=== PATIENT | male | born 1945 | race Caucasian/White ===

== ENCOUNTER 2016-08-07 09:20 | Outpatient (CLI) | payer MEDICARE, OTHER ==
[~2016-08-07 09:20] MED LIST: ACET325T53 PO; ALLA266C2 TP; ALLO100T PO; ASPI-807 PO; ATEN25TA PO; CARI350T27 PO; ENOX40DI SQ; FENT1PAT2 TD; HYDR-3326 PO; HYDR-429 PO; Hydrochlorothiazide PO; INSU100C7 SQ; Insulin Glargine,Hum.rec.anlog SQ; LISI1TAB11 PO; LISI20TA61 PO; METF10002 PO; MULT1CAP34 PO; OXYC1TAB PO; PANT40TA2 PO; POTA99TA14 PO; SIMV20TA6 PO; Zolpidem Tartrate PO
== END 2016-08-07 23:59 | disposition home health service (06) ==
LOC: WOU 09:20
PROVIDERS: ATTEND Podiatrist Foot & Ankle Surgery
DX: E11.621 Type 2 diabetes mellitus with foot ulcer (principal); L97.523 Non-pressure chronic ulcer of other part of left foot with necrosis of muscle; E11.42 Type 2 diabetes mellitus with diabetic polyneuropathy; Z79.4 Long term (current) use of insulin; Z89.432 Acquired absence of left foot; Z89.431 Acquired absence of right foot; Z87.891 Personal history of nicotine dependence
CPT/HCPCS: 11043; 73630; A6253; A6402 ×2

== ENCOUNTER 2016-08-14 09:55 | Outpatient (CLI) | payer MEDICARE, OTHER ==
[~2016-08-14 09:55] MED LIST changes: -HYDR-429 PO; +HYDR-548 PO; +OXYC-128 PO; -OXYC1TAB PO
[2016-08-14] MEDS ORDERED: DILT240T12 PO (20:01)
[2016-08-14] MEDS ORDERED: FENO145T PO (20:01)
[2016-08-14] MEDS ORDERED: ASPI81TA2 PO (20:01)
[2016-08-14] MEDS ORDERED: ATOR10TA PO (20:01)
[2016-08-14] MEDS ORDERED: CARV25TA PO (20:01)
[2016-08-14] MEDS ORDERED: LISI20TA61 GT (20:01)
== END 2016-08-14 23:59 | disposition home health service (06) ==
LOC: WOU 09:55
PROVIDERS: ATTEND Podiatrist Foot & Ankle Surgery
DX: E11.621 Type 2 diabetes mellitus with foot ulcer (principal); L97.424 Non-pressure chronic ulcer of left heel and midfoot with necrosis of bone; L97.521 Non-pressure chronic ulcer of other part of left foot limited to breakdown of skin; L03.116 Cellulitis of left lower limb; E11.42 Type 2 diabetes mellitus with diabetic polyneuropathy; Z87.891 Personal history of nicotine dependence; Z89.432 Acquired absence of left foot; Z89.431 Acquired absence of right foot
CPT/HCPCS: 11044; 11047; A6402; J2704; J3490

== ENCOUNTER 2016-08-14 11:06 | Inpatient (IN) | payer MEDICARE, OTHER ==
[~2016-08-14] VITALS: Ht 193 cm; Wt 138.3 kg
[2016-08-14 12:00] VITALS: BP 115/71
[2016-08-14] MEDS ORDERED: BUPIVACAINE MPF 0.5% W/EPI INJ 30 ML VIAL ONE (13:22)
[2016-08-14 14:12] LABS: BASOPHILS # (AUTO) 0.1 /CMM (0.0-0.2); BASOPHILS % (AUTO) 0.5 % (0.0-2.0); DIFF TOTAL % 100 %; EOSINOPHILS # (AUTO) 0.5 /CMM (0.0-0.7); EOSINOPHILS % (AUTO) 4.6 % (0.0-6.0); HEMATOCRIT 37 % (39-51); HEMOGLOBIN 11.7 g/dL (13.5-17.5); LYMPHOCYTES % (AUTO) 18.6 % (20.0-44.0); MEAN CORPUSCULAR HEMOGLOBIN 25 PG (26.0-33.0); MEAN CORPUSCULAR HGB CONC 32 g/dl (31.0-36.0); MEAN CORPUSCULAR VOLUME 79 fL (80-96); MONOCYTES # (AUTO) 1.1 /CMM (0.1-1.30); MONOCYTES % (AUTO) 9.9 % (2.0-12.0); NEUTROPHILS # (AUTO) 7.3 /CMM (1.8-8.9); NEUTROPHILS % (AUTO) 66.4 % (43.0-81.0); PLATELET COUNT (AUTO) 367 /CMM (150-450); RED BLOOD CELL COUNT(AUTO) 4.68 MIL/uL (4.5-6.0); WHITE BLOOD COUNT (AUTO) 10.9 K/uL (4.3-11.0)
[2016-08-14 14:21] LABS: CALCIUM, SERUM 9.2 mg/dL (8.5-10.1); CREATININE 1.8 mg/dL (0.6-1.3)
[2016-08-14 14:29] LABS: INR 1.08 (0.87-1.13); PROTHROMBIN TIME 11.7 SECS (9.5-12.7)
[2016-08-14] MEDS ORDERED: ZOLPIDEM TARTRATE 5 MG TABLET PO PRN (14:30)
[2016-08-14] MEDS ORDERED: DEXTROSE 50%-WATER 50 ML DISP.SYRIN IV PRN (14:30)
[2016-08-14] MEDS ORDERED: FENTANYL TD PATCH (12 MCG/HR) 12 MCG/HR PATCH.TD72 TD SCH (14:30)
[2016-08-14] MEDS ORDERED: ONDANSETRON HCL/PF 4 MG/2 ML VIAL IVP PRN (14:30)
[2016-08-14] MEDS ORDERED: ACETAMINOPHEN 325 MG TABLET PO PRN (14:30)
[2016-08-14] MEDS ORDERED: MAGNESIUM HYDROXIDE 30 ML UDC PO PRN (14:30)
[2016-08-14] MEDS ORDERED: MAG HYDROX/AL HYDROX/SIMETH 30 ML UDC PO PRN (14:30)
[2016-08-14] MEDS ORDERED: Z GUARD REMEDY 2 OZ OINT TP PRN ×2 (14:30)
[2016-08-14] MEDS ORDERED: IV NS 0.9% 1,000 ML IV SCH (14:30)
[2016-08-14 14:34] LABS: POTASSIUM 6.2 mmol/L (3.5-5.1)
[2016-08-14] MEDS ORDERED: HYDROMORPHONE 1 MG/1 ML DISP.SYRIN IV PRN (15:00)
[2016-08-14] MEDS ORDERED: SODIUM POLYSTYRENE SULFONATE 15 G/60 ML BOTTLE PO ONE (15:00)
[2016-08-14] MEDS: ASPIRIN 81 MG TAB.CHEW PO SCH (15:13)
[2016-08-14] MEDS ORDERED: VANCOMYCIN 1 GM in IV D5W 250 ML IV SCH (15:30)
[2016-08-14] MEDS ORDERED: Calcium Gluconate 1GM/10ML 4.65 MEQ in IV D5W 50 ML IV ONE (15:30)
[2016-08-14] MEDS ORDERED: FEE PK DOSING 1 MIN EA MC ONE (16:13)
[2016-08-14] MEDS ORDERED: VANCOMYCIN 500 MG in IV D5W 100 ML IV SCH (17:00)
[2016-08-14] MEDS ORDERED: SECONDARY IV SET 1 EA INFUS.SET MC ONE (17:26)
[2016-08-14] MEDS ORDERED: IV SET PRIMARY PUMP SET 1 EA INFUS.SET MC ONE ×2 (17:26→18:36)
[2016-08-14] MEDS: CARISOPRODOL 350 MG TABLET PO SCH (17:57)
[2016-08-14] MEDS: *INSULIN REGULAR(HUMULIN R)HUM 100 UNIT/ML VIAL SQ PRN (17:57)
[2016-08-14] MEDS: IV NS 0.9% 1,000 ML IV PRN (17:57)
[2016-08-14] MEDS: BLOOD SUGAR DIAGNOSTIC 1 EACH STRIP VI SCH ×2 (17:58→21:28)
[2016-08-14 18:01] LABS: CALCIUM, SERUM 9.4 mg/dL (8.5-10.1); CREATININE 1.9 mg/dL (0.6-1.3)
[2016-08-14 18:31] LABS: POTASSIUM 6.2 mmol/L (3.5-5.1)
[2016-08-14] MEDS: CEFTRIAXONE 1 G in IV D5W 50 ML IV SCH (18:42)
[2016-08-14] MEDS ORDERED: ALBUTEROL FS 2.5 MG/0.5 ML VIAL.NEB NEB ONE (19:30)
[2016-08-14 20:00] VITALS: BP_SYST 118; BP_DIAS 54; BP_DIAS 57
[2016-08-14] MEDS ORDERED: ATOR10TA PO (20:01)
[2016-08-14] MEDS ORDERED: ASPI81TA2 PO (20:01)
[2016-08-14] MEDS ORDERED: DILT240T12 PO (20:01)
[2016-08-14] MEDS ORDERED: CARV25TA PO (20:01)
[2016-08-14] MEDS ORDERED: FENO145T PO (20:01)
[2016-08-14] MEDS ORDERED: LISI20TA61 GT (20:01)
[2016-08-14] MEDS: SIMVASTATIN 20 MG TABLET PO SCH (21:24)
[2016-08-14] MEDS: INSULIN DETEMIR 100 UNIT/ML CARTRIDGE SQ SCH (21:28)
[2016-08-15] MEDS ORDERED: SODIUM POLYSTYRENE SULFONATE 15 G/60 ML BOTTLE PO ONE (01:00)
[2016-08-15] MEDS: BLOOD SUGAR DIAGNOSTIC 1 EACH STRIP VI SCH ×4 (06:02→21:15)
[2016-08-15] MEDS: HYDROCODONE/APAP 5/325MG 1 EACH TABLET PO PRN ×2 (06:36→15:14)
[2016-08-15 07:21] LABS: ALBUMIN 2.6 g/dL (3.4-5.0); BILIRUBIN,DIRECT 0.1 mg/dL (0.0-0.2); BILIRUBIN,TOTAL 0.3 mg/dL (0.2-1.0); CALCIUM, SERUM 9.3 mg/dL (8.5-10.1); CREATININE 1.6 mg/dL (0.6-1.3); INDIRECT BILIRUBIN 0.2 mg/dL (0.0-1.1); PHOSPHORUS 3.2 mg/dL (2.5-4.9); TOTAL PROTEIN, SERUM 7.3 g/dL (6.4-8.2)
[2016-08-15] MEDS: PANTOPRAZOLE 40 MG TABLET.DR PO SCH (07:30)
[2016-08-15 07:40] LABS: BASOPHILS % (AUTO) 0.4 % (0.0-2.0); DIFF TOTAL % 100 %; EOSINOPHILS # (AUTO) 0.4 /CMM (0.0-0.7); EOSINOPHILS % (AUTO) 3.6 % (0.0-6.0); HEMATOCRIT 36 % (39-51); HEMOGLOBIN 11.9 g/dL (13.5-17.5); LYMPHOCYTES # (AUTO) 1.7 /CMM (0.8-4.8); LYMPHOCYTES % (AUTO) 16.2 % (20.0-44.0); MEAN CORPUSCULAR HEMOGLOBIN 26 PG (26.0-33.0); MEAN CORPUSCULAR HGB CONC 33 g/dl (31.0-36.0); MEAN CORPUSCULAR VOLUME 79 fL (80-96); MONOCYTES % (AUTO) 9.2 % (2.0-12.0); NEUTROPHILS # (AUTO) 7.5 /CMM (1.8-8.9); NEUTROPHILS % (AUTO) 70.6 % (43.0-81.0); PLATELET COUNT (AUTO) 349 /CMM (150-450); RED BLOOD CELL COUNT(AUTO) 4.57 MIL/uL (4.5-6.0); WHITE BLOOD COUNT (AUTO) 10.6 K/uL (4.3-11.0)
[2016-08-15 08:00] VITALS: BP 134/80
[2016-08-15] MEDS: ALLOPURINOL 100 MG TABLET PO SCH (09:00)
[2016-08-15] MEDS: ASPIRIN 81 MG TAB.CHEW PO SCH (09:00)
[2016-08-15] MEDS ORDERED: LISINOPRIL (20MG) 20 MG TABLET PO SCH (09:00)
[2016-08-15] MEDS: CARISOPRODOL 350 MG TABLET PO SCH ×3 (09:00→17:00)
[2016-08-15] MEDS: ATENOLOL 25 MG TABLET PO SCH (09:00)
[2016-08-15 10:00] VITALS: BP 134/80
[2016-08-15] MEDS ORDERED: BUPIVACAINE MPF 0.5% W/EPI INJ 30 ML VIAL ONE (10:31)
[2016-08-15] MEDS ORDERED: Magnesium 1GM/D5W 100ML PREMIX 100 ML IV SCH (10:51)
[2016-08-15] MEDS ORDERED: CELLULOSE,OXIDIZED 1 EACH EACH MC ONE (11:03)
[2016-08-15] MEDS ORDERED: SECONDARY IV SET 1 EA INFUS.SET MC ONE (12:21)
[2016-08-15] MEDS: INSULIN REGULAR, HUMAN 100 UNIT/ML 3 ML VIAL SQ PRN ×2 (12:21→18:29)
[2016-08-15] MEDS: IV NS 0.9% 1,000 ML IV PRN (12:31)
[2016-08-15] MEDS: CEFTRIAXONE 1 G in IV D5W 50 ML IV SCH (15:15)
[2016-08-15 16:00] VITALS: BP 142/75
[2016-08-15] MEDS ORDERED: VANCOMYCIN 1.5 GM in IV D5W 500 ML IV SCH (17:00)
[2016-08-15 19:37] VITALS: BP 144/66
[2016-08-15 19:44] VITALS: BP 144/66
[2016-08-15] MEDS: SIMVASTATIN 20 MG TABLET PO SCH (21:11)
[2016-08-15] MEDS: HYDROCODONE/APAP 10/325MG 1 EA TABLET PO PRN (21:11)
[2016-08-15] MEDS: *INSULIN REGULAR(HUMULIN R)HUM 100 UNIT/ML VIAL SQ PRN (21:19)
[2016-08-15] MEDS: INSULIN DETEMIR 100 UNIT/ML CARTRIDGE SQ SCH (21:19)
[2016-08-16] MEDS: IV NS 0.9% 1,000 ML IV PRN ×2 (05:06→22:16)
[2016-08-16] MEDS: HYDROCODONE/APAP 10/325MG 1 EA TABLET PO PRN ×3 (05:06→20:22)
[2016-08-16] MEDS: INSULIN REGULAR, HUMAN 100 UNIT/ML 3 ML VIAL SQ PRN ×3 (05:44→17:06)
[2016-08-16 07:04] LABS: CALCIUM, SERUM 9.4 mg/dL (8.5-10.1); CREATININE 1.4 mg/dL (0.6-1.3); POTASSIUM 5.3 mmol/L (3.5-5.1)
[2016-08-16 07:29] VITALS: BP 136/74
[2016-08-16] MEDS: BLOOD SUGAR DIAGNOSTIC 1 EACH STRIP VI SCH ×4 (07:30→22:06)
[2016-08-16 08:00] VITALS: BP 109/48
[2016-08-16] MEDS: ALLOPURINOL 100 MG TABLET PO SCH (08:33)
[2016-08-16] MEDS: ASPIRIN 81 MG TAB.CHEW PO SCH (08:33)
[2016-08-16] MEDS: PANTOPRAZOLE 40 MG TABLET.DR PO SCH (08:33)
[2016-08-16] MEDS: ATENOLOL 25 MG TABLET PO SCH (08:34)
[2016-08-16] MEDS ORDERED: SECONDARY IV SET 1 EA INFUS.SET MC ONE (12:44)
[2016-08-16] MEDS: Magnesium 1GM/D5W 100ML PREMIX 100 ML IV SCH ×2 (12:47→14:13)
[2016-08-16 16:00] VITALS: BP 132/69
[2016-08-16] MEDS: CEFTRIAXONE 1 G in IV D5W 50 ML IV SCH (16:54)
[2016-08-16] MEDS ORDERED: VANCOMYCIN 1 GM in IV D5W 250 ML IV SCH (17:00)
[2016-08-16 20:00] VITALS: BP 139/75
[2016-08-16] MEDS: SIMVASTATIN 20 MG TABLET PO SCH (22:06)
[2016-08-16] MEDS: *INSULIN REGULAR(HUMULIN R)HUM 100 UNIT/ML VIAL SQ PRN (22:09)
[2016-08-16] MEDS: INSULIN DETEMIR 100 UNIT/ML CARTRIDGE SQ SCH (22:11)
[2016-08-17] MEDS: PANTOPRAZOLE 40 MG TABLET.DR PO SCH (06:53)
[2016-08-17] MEDS: BLOOD SUGAR DIAGNOSTIC 1 EACH STRIP VI SCH ×4 (06:54→22:14)
[2016-08-17] MEDS: INSULIN REGULAR, HUMAN 100 UNIT/ML 3 ML VIAL SQ PRN ×3 (06:55→18:19)
[2016-08-17 07:04] LABS: BASOPHILS % (AUTO) 0.4 % (0.0-2.0); DIFF TOTAL % 100 %; EOSINOPHILS # (AUTO) 0.4 /CMM (0.0-0.7); EOSINOPHILS % (AUTO) 3.4 % (0.0-6.0); HEMATOCRIT 33 % (39-51); HEMOGLOBIN 10.5 g/dL (13.5-17.5); LYMPHOCYTES # (AUTO) 2.1 /CMM (0.8-4.8); LYMPHOCYTES % (AUTO) 17.9 % (20.0-44.0); MEAN CORPUSCULAR HEMOGLOBIN 25 PG (26.0-33.0); MEAN CORPUSCULAR HGB CONC 32 g/dl (31.0-36.0); MEAN CORPUSCULAR VOLUME 80 fL (80-96); MONOCYTES % (AUTO) 8.7 % (2.0-12.0); NEUTROPHILS % (AUTO) 69.6 % (43.0-81.0); PLATELET COUNT (AUTO) 379 /CMM (150-450); RED BLOOD CELL COUNT(AUTO) 4.16 MIL/uL (4.5-6.0); WHITE BLOOD COUNT (AUTO) 11.6 K/uL (4.3-11.0)
[2016-08-17 07:16] LABS: CALCIUM, SERUM 8.7 mg/dL (8.5-10.1); CREATININE 1.5 mg/dL (0.6-1.3); POTASSIUM 4.9 mmol/L (3.5-5.1)
[2016-08-17] MEDS ORDERED: LIDOCAINE HCL/PF 1% 30 ML SDV ONE (08:03)
[2016-08-17] MEDS: ASPIRIN 81 MG TAB.CHEW PO SCH (09:00)
[2016-08-17] MEDS: ATENOLOL 25 MG TABLET PO SCH (09:42)
[2016-08-17] MEDS: ALLOPURINOL 100 MG TABLET PO SCH (09:42)
[2016-08-17] MEDS: HYDROCODONE/APAP 10/325MG 1 EA TABLET PO PRN ×3 (09:45→22:27)
[2016-08-17] MEDS ORDERED: Magnesium 1GM/D5W 100ML PREMIX 100 ML IV SCH (12:00)
[2016-08-17] MEDS ORDERED: SECONDARY IV SET 1 EA INFUS.SET MC ONE (12:20)
[2016-08-17] MEDS: CEFTRIAXONE 1 G in IV D5W 50 ML IV SCH (15:20)
[2016-08-17 20:00] VITALS: BP 139/78
[2016-08-17] MEDS: SIMVASTATIN 20 MG TABLET PO SCH (22:14)
[2016-08-17] MEDS: *INSULIN REGULAR(HUMULIN R)HUM 100 UNIT/ML VIAL SQ PRN (22:17)
[2016-08-17] MEDS: INSULIN DETEMIR 100 UNIT/ML CARTRIDGE SQ SCH (22:17)
[2016-08-17] MEDS: IV NS 0.9% 1,000 ML IV PRN (22:39)
[2016-08-18 06:45] LABS: BASOPHILS # (AUTO) 0.1 /CMM (0.0-0.2); BASOPHILS % (AUTO) 0.6 % (0.0-2.0); DIFF TOTAL % 100 %; EOSINOPHILS # (AUTO) 0.5 /CMM (0.0-0.7); EOSINOPHILS % (AUTO) 4.6 % (0.0-6.0); HEMATOCRIT 31 % (39-51); HEMOGLOBIN 9.6 g/dL (13.5-17.5); LYMPHOCYTES % (AUTO) 20.2 % (20.0-44.0); MEAN CORPUSCULAR HEMOGLOBIN 25 PG (26.0-33.0); MEAN CORPUSCULAR HGB CONC 32 g/dl (31.0-36.0); MEAN CORPUSCULAR VOLUME 79 fL (80-96); MONOCYTES # (AUTO) 0.8 /CMM (0.1-1.30); MONOCYTES % (AUTO) 7.8 % (2.0-12.0); NEUTROPHILS # (AUTO) 6.7 /CMM (1.8-8.9); NEUTROPHILS % (AUTO) 66.8 % (43.0-81.0); PLATELET COUNT (AUTO) 330 /CMM (150-450); RED BLOOD CELL COUNT(AUTO) 3.87 MIL/uL (4.5-6.0)
[2016-08-18] MEDS: BLOOD SUGAR DIAGNOSTIC 1 EACH STRIP VI SCH ×4 (06:45→21:02)
[2016-08-18 07:09] LABS: CALCIUM, SERUM 8.7 mg/dL (8.5-10.1); CREATININE 1.3 mg/dL (0.6-1.3); POTASSIUM 4.8 mmol/L (3.5-5.1)
[2016-08-18] MEDS: INSULIN REGULAR, HUMAN 100 UNIT/ML 3 ML VIAL SQ PRN ×3 (07:17→16:53)
[2016-08-18 08:00] VITALS: BP 151/79
[2016-08-18] MEDS: PANTOPRAZOLE 40 MG TABLET.DR PO SCH (08:02)
[2016-08-18] MEDS: ASPIRIN 81 MG TAB.CHEW PO SCH (08:02)
[2016-08-18] MEDS: ATENOLOL 25 MG TABLET PO SCH (08:02)
[2016-08-18] MEDS: ACIDOPHILUS/BULGARICUS 1 EACH TAB.CHEW PO SCH ×3 (08:02→16:33)
[2016-08-18] MEDS: ALLOPURINOL 100 MG TABLET PO SCH (08:02)
[2016-08-18] MEDS: HYDROCODONE/APAP 10/325MG 1 EA TABLET PO PRN ×3 (08:10→20:10)
[2016-08-18 08:53] VITALS: BP 151/79
[2016-08-18] MEDS: Magnesium 1GM/D5W 100ML PREMIX 100 ML IV SCH ×2 (11:10→12:14)
[2016-08-18] MEDS: CEFTRIAXONE 1 G in IV D5W 50 ML IV SCH (15:13)
[2016-08-18 16:00] VITALS: BP 150/78
[2016-08-18 20:00] VITALS: BP 147/81
[2016-08-18] MEDS: IV NS 0.9% 1,000 ML IV PRN (21:00)
[2016-08-18] MEDS: *INSULIN REGULAR(HUMULIN R)HUM 100 UNIT/ML VIAL SQ PRN (21:04)
[2016-08-18] MEDS: INSULIN DETEMIR 100 UNIT/ML CARTRIDGE SQ SCH (21:05)
[2016-08-18] MEDS: SIMVASTATIN 20 MG TABLET PO SCH (21:07)
[2016-08-19] MEDS: HYDROCODONE/APAP 10/325MG 1 EA TABLET PO PRN ×4 (02:51→23:47)
[2016-08-19 06:26] LABS: BASOPHILS % (AUTO) 0.4 % (0.0-2.0); DIFF TOTAL % 100 %; EOSINOPHILS # (AUTO) 0.6 /CMM (0.0-0.7); EOSINOPHILS % (AUTO) 4.9 % (0.0-6.0); HEMATOCRIT 33 % (39-51); HEMOGLOBIN 10.2 g/dL (13.5-17.5); LYMPHOCYTES % (AUTO) 17.2 % (20.0-44.0); MEAN CORPUSCULAR HEMOGLOBIN 25 PG (26.0-33.0); MEAN CORPUSCULAR HGB CONC 31 g/dl (31.0-36.0); MEAN CORPUSCULAR VOLUME 79 fL (80-96); MONOCYTES # (AUTO) 0.6 /CMM (0.1-1.30); MONOCYTES % (AUTO) 4.7 % (2.0-12.0); NEUTROPHILS # (AUTO) 8.6 /CMM (1.8-8.9); NEUTROPHILS % (AUTO) 72.8 % (43.0-81.0); PLATELET COUNT (AUTO) 247 /CMM (150-450); RED BLOOD CELL COUNT(AUTO) 4.12 MIL/uL (4.5-6.0); WHITE BLOOD COUNT (AUTO) 11.8 K/uL (4.3-11.0)
[2016-08-19] MEDS: BLOOD SUGAR DIAGNOSTIC 1 EACH STRIP VI SCH ×4 (06:36→21:22)
[2016-08-19] MEDS: INSULIN REGULAR, HUMAN 100 UNIT/ML 3 ML VIAL SQ PRN ×2 (06:36→17:34)
[2016-08-19 08:00] VITALS: BP 161/96
[2016-08-19] MEDS: ACIDOPHILUS/BULGARICUS 1 EACH TAB.CHEW PO SCH ×3 (08:13→16:56)
[2016-08-19] MEDS: ALLOPURINOL 100 MG TABLET PO SCH (08:13)
[2016-08-19] MEDS: ASPIRIN 81 MG TAB.CHEW PO SCH (08:13)
[2016-08-19] MEDS: PANTOPRAZOLE 40 MG TABLET.DR PO SCH (08:13)
[2016-08-19] MEDS: ATENOLOL 25 MG TABLET PO SCH (08:14)
[2016-08-19 08:19] LABS: CALCIUM, SERUM 8.7 mg/dL (8.5-10.1); CREATININE 1.3 mg/dL (0.6-1.3); POTASSIUM 5.3 mmol/L (3.5-5.1)
[2016-08-19] MEDS ORDERED: SECONDARY IV SET 1 EA INFUS.SET MC ONE (11:03)
[2016-08-19] MEDS: IV NS 0.9% 1,000 ML IV PRN (11:09)
[2016-08-19] MEDS: Magnesium 1GM/D5W 100ML PREMIX 100 ML IV SCH ×2 (11:09→12:32)
[2016-08-19] MEDS: *INSULIN REGULAR(HUMULIN R)HUM 100 UNIT/ML VIAL SQ PRN ×2 (12:07→21:21)
[2016-08-19] MEDS: CEFTRIAXONE 1 G in IV D5W 50 ML IV SCH (14:58)
[2016-08-19 15:46] VITALS: BP 160/119
[2016-08-19 20:00] VITALS: BP 156/80
[2016-08-19] MEDS: SIMVASTATIN 20 MG TABLET PO SCH (21:20)
[2016-08-19] MEDS: INSULIN DETEMIR 100 UNIT/ML CARTRIDGE SQ SCH (21:21)
[2016-08-20] MEDS: BLOOD SUGAR DIAGNOSTIC 1 EACH STRIP VI SCH ×4 (06:44→21:26)
[2016-08-20] MEDS: INSULIN REGULAR, HUMAN 100 UNIT/ML 3 ML VIAL SQ PRN ×3 (06:48→17:53)
[2016-08-20] MEDS: PANTOPRAZOLE 40 MG TABLET.DR PO SCH (06:49)
[2016-08-20 07:02] LABS: BASOPHILS % (AUTO) 0.5 % (0.0-2.0); DIFF TOTAL % 100 %; EOSINOPHILS # (AUTO) 0.4 /CMM (0.0-0.7); EOSINOPHILS % (AUTO) 4.8 % (0.0-6.0); HEMATOCRIT 32 % (39-51); LYMPHOCYTES # (AUTO) 2.1 /CMM (0.8-4.8); LYMPHOCYTES % (AUTO) 22.1 % (20.0-44.0); MEAN CORPUSCULAR HEMOGLOBIN 25 PG (26.0-33.0); MEAN CORPUSCULAR HGB CONC 31 g/dl (31.0-36.0); MEAN CORPUSCULAR VOLUME 79 fL (80-96); MONOCYTES # (AUTO) 0.7 /CMM (0.1-1.30); MONOCYTES % (AUTO) 7.6 % (2.0-12.0); NEUTROPHILS # (AUTO) 6.1 /CMM (1.8-8.9); PLATELET COUNT (AUTO) 378 /CMM (150-450); WHITE BLOOD COUNT (AUTO) 9.3 K/uL (4.3-11.0)
[2016-08-20 07:30] LABS: CALCIUM, SERUM 8.6 mg/dL (8.5-10.1); CREATININE 1.2 mg/dL (0.6-1.3); POTASSIUM 5.1 mmol/L (3.5-5.1)
[2016-08-20 08:00] VITALS: BP 148/78
[2016-08-20] MEDS: ACIDOPHILUS/BULGARICUS 1 EACH TAB.CHEW PO SCH ×3 (08:25→17:49)
[2016-08-20] MEDS: ASCORBIC ACID 500 MG TABLET PO SCH (08:26)
[2016-08-20] MEDS: ALLOPURINOL 100 MG TABLET PO SCH (08:26)
[2016-08-20] MEDS: ATENOLOL 25 MG TABLET PO SCH (08:26)
[2016-08-20] MEDS: ASPIRIN 81 MG TAB.CHEW PO SCH (08:27)
[2016-08-20] MEDS ORDERED: MULTIVITAMINS,THERAPEUTIC 1 UDTAB TABLET PO SCH (09:00)
[2016-08-20] MEDS: HYDROCODONE/APAP 10/325MG 1 EA TABLET PO PRN ×3 (10:23→22:37)
[2016-08-20] MEDS ORDERED: SECONDARY IV SET 1 EA INFUS.SET MC ONE (12:21)
[2016-08-20] MEDS: Magnesium 1GM/D5W 100ML PREMIX 100 ML IV SCH ×2 (12:25→13:49)
[2016-08-20] MEDS: CEFTRIAXONE 1 G in IV D5W 50 ML IV SCH (15:33)
[2016-08-20 16:00] VITALS: BP 166/81
[2016-08-20] MEDS: IV NS 0.9% 1,000 ML IV PRN (19:53)
[2016-08-20 20:00] VITALS: BP 168/81
[2016-08-20] MEDS: SIMVASTATIN 20 MG TABLET PO SCH (21:26)
[2016-08-20] MEDS: hydrALAZINE HCL 25 MG TABLET PO PRN (21:26)
[2016-08-20] MEDS: INSULIN DETEMIR 100 UNIT/ML CARTRIDGE SQ SCH (21:27)
[2016-08-20] MEDS: *INSULIN REGULAR(HUMULIN R)HUM 100 UNIT/ML VIAL SQ PRN (21:28)
[2016-08-21] MEDS: HYDROCODONE/APAP 10/325MG 1 EA TABLET PO PRN ×3 (05:05→18:04)
[2016-08-21 06:14] LABS: BASOPHILS % (AUTO) 0.4 % (0.0-2.0); DIFF TOTAL % 100 %; EOSINOPHILS # (AUTO) 0.4 /CMM (0.0-0.7); EOSINOPHILS % (AUTO) 4.2 % (0.0-6.0); HEMATOCRIT 31 % (39-51); HEMOGLOBIN 9.9 g/dL (13.5-17.5); LYMPHOCYTES # (AUTO) 2.1 /CMM (0.8-4.8); LYMPHOCYTES % (AUTO) 20.9 % (20.0-44.0); MEAN CORPUSCULAR HEMOGLOBIN 25 PG (26.0-33.0); MEAN CORPUSCULAR HGB CONC 32 g/dl (31.0-36.0); MEAN CORPUSCULAR VOLUME 79 fL (80-96); MONOCYTES # (AUTO) 0.7 /CMM (0.1-1.30); MONOCYTES % (AUTO) 6.9 % (2.0-12.0); NEUTROPHILS # (AUTO) 6.9 /CMM (1.8-8.9); NEUTROPHILS % (AUTO) 67.6 % (43.0-81.0); PLATELET COUNT (AUTO) 335 /CMM (150-450); RED BLOOD CELL COUNT(AUTO) 3.97 MIL/uL (4.5-6.0); WHITE BLOOD COUNT (AUTO) 10.2 K/uL (4.3-11.0)
[2016-08-21 06:32] LABS: CALCIUM, SERUM 8.9 mg/dL (8.5-10.1); CREATININE 1.2 mg/dL (0.6-1.3); POTASSIUM 4.9 mmol/L (3.5-5.1)
[2016-08-21] MEDS: BLOOD SUGAR DIAGNOSTIC 1 EACH STRIP VI SCH ×4 (06:52→21:17)
[2016-08-21] MEDS: PANTOPRAZOLE 40 MG TABLET.DR PO SCH (06:53)
[2016-08-21] MEDS: INSULIN REGULAR, HUMAN 100 UNIT/ML 3 ML VIAL SQ PRN ×3 (06:54→17:03)
[2016-08-21 08:00] VITALS: BP 183/103
[2016-08-21] MEDS: ALLOPURINOL 100 MG TABLET PO SCH (08:19)
[2016-08-21] MEDS: ASCORBIC ACID 500 MG TABLET PO SCH (08:19)
[2016-08-21] MEDS: ACIDOPHILUS/BULGARICUS 1 EACH TAB.CHEW PO SCH ×3 (08:19→16:58)
[2016-08-21] MEDS: ASPIRIN 81 MG TAB.CHEW PO SCH (08:19)
[2016-08-21] MEDS: ATENOLOL 25 MG TABLET PO SCH (08:20)
[2016-08-21] MEDS: hydrALAZINE HCL 25 MG TABLET PO PRN (08:20)
[2016-08-21] MEDS: IV NS 0.9% 1,000 ML IV PRN (09:18)
[2016-08-21] MEDS: Magnesium 1GM/D5W 100ML PREMIX 100 ML IV SCH ×2 (11:18→12:24)
[2016-08-21] MEDS: CEFTRIAXONE 1 G in IV D5W 50 ML IV SCH (15:04)
[2016-08-21 16:00] VITALS: BP 138/83
[2016-08-21 20:00] VITALS: BP 130/77
[2016-08-21] MEDS: SIMVASTATIN 20 MG TABLET PO SCH (21:18)
[2016-08-21] MEDS: INSULIN DETEMIR 100 UNIT/ML CARTRIDGE SQ SCH (21:21)
[2016-08-21] MEDS: *INSULIN REGULAR(HUMULIN R)HUM 100 UNIT/ML VIAL SQ PRN (21:23)
[2016-08-22] MEDS: IV NS 0.9% 1,000 ML IV PRN (00:12)
[2016-08-22] MEDS: HYDROCODONE/APAP 10/325MG 1 EA TABLET PO PRN ×3 (00:12→12:24)
[2016-08-22 06:23] LABS: CREATININE 1.3 mg/dL (0.6-1.3)
[2016-08-22] MEDS: BLOOD SUGAR DIAGNOSTIC 1 EACH STRIP VI SCH ×2 (06:58→12:02)
[2016-08-22] MEDS: INSULIN REGULAR, HUMAN 100 UNIT/ML 3 ML VIAL SQ PRN ×2 (07:00→12:07)
[2016-08-22] MEDS: PANTOPRAZOLE 40 MG TABLET.DR PO SCH (07:01)
[2016-08-22 08:00] VITALS: BP 141/77
[2016-08-22] MEDS: ASPIRIN 81 MG TAB.CHEW PO SCH (08:08)
[2016-08-22] MEDS: ACIDOPHILUS/BULGARICUS 1 EACH TAB.CHEW PO SCH ×2 (08:08→12:02)
[2016-08-22] MEDS: ALLOPURINOL 100 MG TABLET PO SCH (08:08)
[2016-08-22] MEDS: ASCORBIC ACID 500 MG TABLET PO SCH (08:08)
[2016-08-22] MEDS: ATENOLOL 25 MG TABLET PO SCH (08:09)
[2016-08-22] MEDS: CEFTRIAXONE 1 G in IV D5W 50 ML IV SCH (15:06)
[2016-08-22] MEDS ORDERED: CEFT1FRO2 IV (15:22)
[2016-08-22] MEDS ORDERED: Magnesium 1GM/D5W 100ML PREMIX 100 ML IV SCH (15:30)
[2016-08-22 16:00] VITALS: BP 142/66
[2016-08-24 08:11] LABS: VIT D, 25-HYDROXY 12.8 ng/mL (30.0-100.0)
== END 2016-08-22 16:15 | DRG 987 ==
LOC: WOUND2 11:06
PROVIDERS: ADMIT Internal Medicine; ATTEND Podiatrist Foot & Ankle Surgery
PROC: 0QBP0ZZ Excision of Left Metatarsal, Open Approach (ICD-10-PCS; principal; 2016-08-15 10:42)
PROC: 0QBP0ZZ Excision of Left Metatarsal, Open Approach (ICD-10-PCS; 2016-08-17)
DX: L03.116 Cellulitis of left lower limb (principal); N17.0 Acute kidney failure with tubular necrosis; E44.0 Moderate protein-calorie malnutrition; L02.612 Cutaneous abscess of left foot; E87.5 Hyperkalemia; E11.621 Type 2 diabetes mellitus with foot ulcer; E11.65 Type 2 diabetes mellitus with hyperglycemia; I12.9 Hypertensive chronic kidney disease with stage 1 through stage 4 chronic kidney disease, or unspecified chronic kidney disease; E11.40 Type 2 diabetes mellitus with diabetic neuropathy, unspecified; E61.1 Iron deficiency; G89.4 Chronic pain syndrome; E78.5 Hyperlipidemia, unspecified; N18.3 Chronic kidney disease, stage 3 (moderate); E11.21 Type 2 diabetes mellitus with diabetic nephropathy; E11.22 Type 2 diabetes mellitus with diabetic chronic kidney disease; D63.8 Anemia in other chronic diseases classified elsewhere; E66.01 Morbid (severe) obesity due to excess calories; N40.0 Benign prostatic hyperplasia without lower urinary tract symptoms; Z87.891 Personal history of nicotine dependence; Z79.4 Long term (current) use of insulin; Z91.19 Patient's noncompliance with other medical treatment and regimen; Z68.37 Body mass index [BMI] 37.0-37.9, adult; Z89.422 Acquired absence of other left toe(s); Z89.421 Acquired absence of other right toe(s); L97.529 Non-pressure chronic ulcer of other part of left foot with unspecified severity
CPT/HCPCS: 36415; 71010-TC; 73630-TC; 80048-TC; 80076-TC; 80202-TC; 82306; 82652; 82962-TC; 83540-TC; 83735-TC; 83970; 84100-TC; 85025-TC; 85610-TC; 85730-TC; 87070-TC; 87081-TC; 97001-TC; A6209; A6402; A6403; J0610; J0696; J1815; J2704; J3370; J3475; J3490; J7030; J7060

== ENCOUNTER 2016-09-13 09:40 | Inpatient (IN) | payer MEDICARE, OTHER ==
[~2016-09-13] VITALS: Ht 193 cm; Wt 140.2 kg
[~2016-09-13 09:40] MED LIST changes: -ATEN25TA PO; +ATOR10TA PO; -CARI350T27 PO; +CARV25TA PO; +CEFT1FRO2 IV; +DILT240T12 PO; -ENOX40DI SQ; +FENO145T PO; -FENT1PAT2 TD; -HYDR-548 PO; -Hydrochlorothiazide PO; -INSU100C7 SQ; -LISI20TA61 PO; -OXYC-128 PO; -SIMV20TA6 PO
[2016-09-13 10:16] LABS: BASOPHILS % (AUTO) 0.3 % (0.0-2.0); DIFF TOTAL % 100 %; EOSINOPHILS # (AUTO) 0.3 /CMM (0.0-0.7); EOSINOPHILS % (AUTO) 2.4 % (0.0-6.0); HEMATOCRIT 33 % (39-51); HEMOGLOBIN 10.1 g/dL (13.5-17.5); LYMPHOCYTES # (AUTO) 1.7 /CMM (0.8-4.8); LYMPHOCYTES % (AUTO) 14.2 % (20.0-44.0); MEAN CORPUSCULAR HEMOGLOBIN 23 PG (26.0-33.0); MEAN CORPUSCULAR HGB CONC 31 g/dl (31.0-36.0); MEAN CORPUSCULAR VOLUME 75 fL (80-96); MONOCYTES # (AUTO) 1.2 /CMM (0.1-1.30); MONOCYTES % (AUTO) 9.9 % (2.0-12.0); NEUTROPHILS # (AUTO) 8.6 /CMM (1.8-8.9); NEUTROPHILS % (AUTO) 73.2 % (43.0-81.0); PLATELET COUNT (AUTO) 357 /CMM (150-450); RED BLOOD CELL COUNT(AUTO) 4.37 MIL/uL (4.5-6.0); WHITE BLOOD COUNT (AUTO) 11.8 K/uL (4.3-11.0)
[2016-09-13] MEDS ORDERED: PIPERACILLIN /TAZOBACTAM 3.375 G in IV D5W 50 ML IV ONE (10:30)
[2016-09-13] MEDS ORDERED: VANCOMYCIN 1 GM in IV D5W 250 ML IV ONE (10:30)
[2016-09-13 10:33] LABS: INR 1.05 (0.87-1.13); PROTHROMBIN TIME 11.4 SECS (9.5-12.7)
[2016-09-13] MEDS ORDERED: IV SET PRIMARY PUMP SET 1 EA INFUS.SET MC ONE ×2 (10:35→21:29)
[2016-09-13 11:14] LABS: LACTIC ACID 3.7 mmol/L (0.4-2.0)
[2016-09-13 11:15] LABS: *LACTIC ACID REFLEX FLAG YES
[2016-09-13 11:20] LABS: ALANINE AMINOTRANSFERASE 43 U/L (12-78); ALBUMIN 2.9 g/dL (3.4-5.0); ANION GAP 15 (5-14); ASPARTATE AMINOTRANSFERASE 35 U/L (15-37); BILIRUBIN,DIRECT 0.1 mg/dL (0.0-0.2); BILIRUBIN,TOTAL 0.3 mg/dL (0.2-1.0); CALCIUM, SERUM 9.1 mg/dL (8.5-10.1); CARBON DIOXIDE 26 mmol/L (21-32); CHLORIDE 100 mmol/L (98-107); CREATININE 1.2 mg/dL (0.6-1.3); GFR 60 mL/min (>60); INDIRECT BILIRUBIN 0.2 mg/dL (0.0-1.1); POTASSIUM 4.5 mmol/L (3.5-5.1); SODIUM SERUM 137 mmol/L (136-145); TOTAL PROTEIN, SERUM 7.6 g/dL (6.4-8.2); UREA NITROGEN, BLOOD 22 mg/dL (7-18)
[2016-09-13 11:23] LABS: GLUCOSE 361 mg/dL (74-106)
[2016-09-13 11:25] LABS: TROPONIN I < 0.017 ng/mL (0.00-0.056)
[2016-09-13] MEDS ORDERED: MORPHINE SULFATE INJ 2 MG/ML DISP.SYRIN IV ONE (11:30)
[2016-09-13] MEDS ORDERED: ONDANSETRON HCL/PF 4 MG/2 ML VIAL IVP ONE (11:30)
[2016-09-13] MEDS ORDERED: MORPHINE SULFATE INJ 4 MG/ML DISP.SYRIN ONE (11:36)
[2016-09-13] MEDS ORDERED: ONDANSETRON HCL/PF 4 MG/2 ML VIAL ONE (11:36)
[2016-09-13] MEDS ORDERED: Z GUARD REMEDY 2 OZ OINT TP PRN (12:30)
[2016-09-13] MEDS ORDERED: ACETAMINOPHEN 325 MG TABLET PO PRN (12:30)
[2016-09-13] MEDS ORDERED: ZOLPIDEM TARTRATE 5 MG TABLET PO PRN (12:30)
[2016-09-13] MEDS ORDERED: ENOXAPARIN SODIUM 40 MG/0.4 ML DISP.SYRIN SQ SCH (12:30)
[2016-09-13] MEDS ORDERED: DEXTROSE 50%-WATER 50 ML DISP.SYRIN IV PRN (12:30)
[2016-09-13] MEDS ORDERED: ONDANSETRON HCL/PF 4 MG/2 ML VIAL IVP PRN (12:30)
[2016-09-13] MEDS ORDERED: VANCOMYCIN 1 GM in IV D5W 250 ML IV SCH (12:30)
[2016-09-13] MEDS ORDERED: MAG HYDROX/AL HYDROX/SIMETH 30 ML UDC PO PRN (12:30)
[2016-09-13] MEDS ORDERED: MAGNESIUM HYDROXIDE 30 ML UDC PO PRN (12:30)
[2016-09-13] MEDS ORDERED: INSULIN REGULAR, HUMAN 100 UNIT/ML 3 ML VIAL SQ PRN (12:30)
[2016-09-13] MEDS ORDERED: PIPERACILLIN /TAZOBACTAM 4.5 G in IV D5W 50 ML IV SCH (13:00)
[2016-09-13] MEDS ORDERED: ENOXAPARIN SODIUM 40 MG/0.4 ML DISP.SYRIN SQ ONE (14:23)
[2016-09-13] MEDS: BLOOD SUGAR DIAGNOSTIC 1 EACH STRIP VI SCH ×2 (17:37→22:43)
[2016-09-13] MEDS ORDERED: INSULIN REGULAR, HUMAN 100 UNIT/ML 10 ML VIAL ONE (17:54)
[2016-09-13] MEDS ORDERED: HYDROCODONE/APAP 5/325MG 1 EACH TABLET ONE (19:07)
[2016-09-13] MEDS: HYDROCODONE/APAP 5/325MG 1 EACH TABLET PO PRN (19:12)
[2016-09-13] MEDS ORDERED: FEE PK DOSING 1 MIN EA MC ONE (20:14)
[2016-09-13 20:30] VITALS: BP 163/69
[2016-09-13] MEDS ORDERED: IV 1/2NS 1000 ML 1,000 ML IV ONE (21:28)
[2016-09-13] MEDS: IV 1/2NS 1000 ML 1,000 ML IV PRN (21:47)
[2016-09-13] MEDS: PIPERACILLIN /TAZOBACTAM 3.375 G in IV D5W 50 ML IV SCH (21:47)
[2016-09-13] MEDS ORDERED: SECONDARY IV SET 1 EA INFUS.SET MC ONE (21:53)
[2016-09-13] MEDS: *INSULIN REGULAR(HUMULIN R)HUM 100 UNIT/ML VIAL SQ PRN (22:42)
[2016-09-14] MEDS ORDERED: SECONDARY IV SET 1 EA INFUS.SET MC ONE ×3 (00:26→15:27)
[2016-09-14] MEDS: VANCOMYCIN 1 GM in IV D5W 250 ML IV SCH ×2 (00:36→16:44)
[2016-09-14] MEDS: HYDROCODONE/APAP 5/325MG 1 EACH TABLET PO PRN ×3 (02:30→19:54)
[2016-09-14] MEDS: PIPERACILLIN /TAZOBACTAM 3.375 G in IV D5W 50 ML IV SCH ×4 (05:21→23:30)
[2016-09-14] MEDS: BLOOD SUGAR DIAGNOSTIC 1 EACH STRIP VI SCH ×4 (06:57→22:00)
[2016-09-14 08:00] VITALS: BP 131/72
[2016-09-14 08:08] LABS: CALCIUM, SERUM 9.4 mg/dL (8.5-10.1); CREATININE 1.3 mg/dL (0.6-1.3); PHOSPHORUS 3.5 mg/dL (2.5-4.9); POTASSIUM 4.6 mmol/L (3.5-5.1)
[2016-09-14 08:09] LABS: THYROID STIMULATING HORMONE 2.636 uIU/mL (0.358-3.74)
[2016-09-14 08:10] LABS: BASOPHILS % (AUTO) 0.5 % (0.0-2.0); DIFF TOTAL % 100 %; EOSINOPHILS # (AUTO) 0.4 /CMM (0.0-0.7); EOSINOPHILS % (AUTO) 4.4 % (0.0-6.0); HEMATOCRIT 34 % (39-51); HEMOGLOBIN 10.4 g/dL (13.5-17.5); LYMPHOCYTES # (AUTO) 0.9 /CMM (0.8-4.8); LYMPHOCYTES % (AUTO) 10.6 % (20.0-44.0); MEAN CORPUSCULAR HEMOGLOBIN 23 PG (26.0-33.0); MEAN CORPUSCULAR HGB CONC 31 g/dl (31.0-36.0); MEAN CORPUSCULAR VOLUME 75 fL (80-96); MONOCYTES # (AUTO) 0.3 /CMM (0.1-1.30); MONOCYTES % (AUTO) 3.3 % (2.0-12.0); NEUTROPHILS # (AUTO) 6.9 /CMM (1.8-8.9); NEUTROPHILS % (AUTO) 81.2 % (43.0-81.0); PLATELET COUNT (AUTO) 352 /CMM (150-450); RED BLOOD CELL COUNT(AUTO) 4.53 MIL/uL (4.5-6.0); WHITE BLOOD COUNT (AUTO) 8.5 K/uL (4.3-11.0)
[2016-09-14] MEDS: PANTOPRAZOLE 40 MG TABLET.DR PO SCH (09:02)
[2016-09-14] MEDS: ENOXAPARIN SODIUM 40 MG/0.4 ML DISP.SYRIN SQ SCH (09:05)
[2016-09-14] MEDS ORDERED: ACET-868 PO (09:32)
[2016-09-14] MEDS ORDERED: ASCO500T9 PO (09:32)
[2016-09-14] MEDS ORDERED: MAG30ORA PO (09:32)
[2016-09-14] MEDS ORDERED: PANT40TA4 PO (09:32)
[2016-09-14] MEDS ORDERED: ZINC220C8 PO (09:32)
[2016-09-14] MEDS ORDERED: ATEN25TA PO (09:32)
[2016-09-14] MEDS ORDERED: BLOO-668 IN (09:32)
[2016-09-14] MEDS ORDERED: SIMV20TA6 PO (09:32)
[2016-09-14] MEDS ORDERED: MELA3TAB PO (09:32)
[2016-09-14] MEDS ORDERED: INSU100I19 SQ (09:32)
[2016-09-14] MEDS ORDERED: HYDR-4076 PO (09:32)
[2016-09-14] MEDS ORDERED: ACID1TAB12 PO (09:32)
[2016-09-14] MEDS ORDERED: HYDR-548 PO ×2 (09:32)
[2016-09-14] MEDS ORDERED: INSU100V3 SQ (09:32)
[2016-09-14] MEDS: IV 1/2NS 1000 ML 1,000 ML IV PRN (10:06)
[2016-09-14] MEDS ORDERED: ACETAMINOPHEN 325 MG TABLET PO PRN (11:00)
[2016-09-14] MEDS ORDERED: Z GUARD REMEDY 2 OZ OINT TP PRN (11:00)
[2016-09-14] MEDS ORDERED: MAG HYDROX/AL HYDROX/SIMETH 30 ML UDC PO PRN (11:00)
[2016-09-14] MEDS ORDERED: Magnesium 1GM/D5W 100ML PREMIX 100 ML IV SCH (12:00)
[2016-09-14 12:38] LABS: IRON, SERUM 29 ug/dl (50-175); PERCENT SATURATION 9 % (14-33); TOTAL IRON BINDING CAPACITY 322 ug/dl (250-450)
[2016-09-14] MEDS: Magnesium 1GM/D5W 100ML PREMIX 100 ML IV SCH ×2 (12:42→15:54)
[2016-09-14] MEDS: ACIDOPHILUS/BULGARICUS 1 EACH TAB.CHEW PO SCH ×2 (12:42→17:47)
[2016-09-14] MEDS: VALSARTAN 80 MG TABLET PO SCH (12:43)
[2016-09-14] MEDS: BLOOD SUGAR DIAGNOSTIC 1 EACH STRIP IN SCH ×3 (13:00→21:47)
[2016-09-14 16:00] VITALS: BP 136/78
[2016-09-14] MEDS: ASCORBIC ACID 500 MG TABLET PO SCH (17:47)
[2016-09-14 17:49] LABS: KETONES,URINE NEGATIVE (NEGATIVE); LEUKOCYTE ESTERASE ,URINE NEGATIVE (NEGATIVE)
[2016-09-14] MEDS: INSULIN REGULAR, HUMAN 100 UNIT/ML 3 ML VIAL SQ PRN (18:19)
[2016-09-14 18:37] LABS: ADD UA MICROSCOPIC YES
[2016-09-14 18:48] LABS: ADD URINE CULTURE NO; RBC,URINE 0-2 /HPF (0-2); WBC,URINE 0-2 /HPF (0-3)
[2016-09-14] MEDS: HYDROCODONE/APAP 10/325MG 1 EA TABLET PO PRN (19:59)
[2016-09-14 20:00] VITALS: BP 122/68
[2016-09-14] MEDS: INSULIN DETEMIR 100 UNIT/ML CARTRIDGE SQ SCH (21:43)
[2016-09-14] MEDS: *INSULIN REGULAR(HUMULIN R)HUM 100 UNIT/ML VIAL SQ PRN (21:45)
[2016-09-14] MEDS: SIMVASTATIN 20 MG TABLET PO SCH (21:47)
[2016-09-14 22:00] VITALS: BP 122/68
[2016-09-15] MEDS: VANCOMYCIN 1 GM in IV D5W 250 ML IV SCH ×2 (00:36→13:00)
[2016-09-15] MEDS: HYDROCODONE/APAP 10/325MG 1 EA TABLET PO PRN ×3 (02:55→23:02)
[2016-09-15] MEDS: PIPERACILLIN /TAZOBACTAM 3.375 G in IV D5W 50 ML IV SCH ×2 (05:08→12:16)
[2016-09-15] MEDS: *INSULIN REGULAR(HUMULIN R)HUM 100 UNIT/ML VIAL SQ PRN ×3 (05:09→22:46)
[2016-09-15] MEDS: BLOOD SUGAR DIAGNOSTIC 1 EACH STRIP IN SCH ×4 (05:12→22:43)
[2016-09-15] MEDS: IV 1/2NS 1000 ML 1,000 ML IV PRN (05:19)
[2016-09-15] MEDS ORDERED: PANTOPRAZOLE 40 MG TABLET.DR PO SCH (07:30)
[2016-09-15] MEDS: BLOOD SUGAR DIAGNOSTIC 1 EACH STRIP VI SCH ×4 (07:30→22:43)
[2016-09-15 07:48] LABS: BASOPHILS % (AUTO) 0.1 % (0.0-2.0); DIFF TOTAL % 100 %; EOSINOPHILS # (AUTO) 0.5 /CMM (0.0-0.7); EOSINOPHILS % (AUTO) 6.3 % (0.0-6.0); HEMATOCRIT 32 % (39-51); HEMOGLOBIN 10.1 g/dL (13.5-17.5); LYMPHOCYTES # (AUTO) 1.3 /CMM (0.8-4.8); LYMPHOCYTES % (AUTO) 18.3 % (20.0-44.0); MEAN CORPUSCULAR HEMOGLOBIN 23 PG (26.0-33.0); MEAN CORPUSCULAR HGB CONC 31 g/dl (31.0-36.0); MEAN CORPUSCULAR VOLUME 75 fL (80-96); MONOCYTES # (AUTO) 0.7 /CMM (0.1-1.30); MONOCYTES % (AUTO) 8.9 % (2.0-12.0); NEUTROPHILS # (AUTO) 4.9 /CMM (1.8-8.9); NEUTROPHILS % (AUTO) 66.4 % (43.0-81.0); PLATELET COUNT (AUTO) 356 /CMM (150-450); RED BLOOD CELL COUNT(AUTO) 4.32 MIL/uL (4.5-6.0); WHITE BLOOD COUNT (AUTO) 7.4 K/uL (4.3-11.0)
[2016-09-15 08:00] VITALS: BP 158/90
[2016-09-15 08:29] LABS: ALBUMIN 2.9 g/dL (3.4-5.0); CREATININE 1.2 mg/dL (0.6-1.3)
[2016-09-15] MEDS: ACIDOPHILUS/BULGARICUS 1 EACH TAB.CHEW PO SCH ×3 (09:00→17:24)
[2016-09-15] MEDS: ZINC SULFATE 220 MG CAPSULE PO SCH (09:00)
[2016-09-15] MEDS: ASPIRIN EC 81 MG TABLET.DR PO SCH (09:00)
[2016-09-15] MEDS: ASCORBIC ACID 500 MG TABLET PO SCH ×2 (09:01→17:24)
[2016-09-15] MEDS: ATENOLOL 25 MG TABLET PO SCH (09:02)
[2016-09-15] MEDS: PANTOPRAZOLE 40 MG TABLET.DR PO SCH (09:03)
[2016-09-15] MEDS: hydrALAZINE HCL 25 MG TABLET PO PRN ×2 (09:04→20:23)
[2016-09-15] MEDS: ALLOPURINOL 100 MG TABLET PO SCH (09:04)
[2016-09-15] MEDS: VALSARTAN 80 MG TABLET PO SCH (09:04)
[2016-09-15] MEDS: ENOXAPARIN SODIUM 40 MG/0.4 ML DISP.SYRIN SQ SCH (09:07)
[2016-09-15 09:20] LABS: POTASSIUM 4.5 mmol/L (3.5-5.1)
[2016-09-15] MEDS: HYDROCODONE/APAP 10/325MG 1 EA TABLET PO SCH (09:20)
[2016-09-15 10:03] LABS: BILIRUBIN,TOTAL 0.3 mg/dL (0.2-1.0); TOTAL PROTEIN, SERUM 7.9 g/dL (6.4-8.2)
[2016-09-15] MEDS: INSULIN REGULAR, HUMAN 100 UNIT/ML 3 ML VIAL SQ PRN ×2 (12:15→19:00)
[2016-09-15] MEDS: SOD FERRIC GLUC 125 MG in IV NS 0.9% 100 ML IV SCH (15:53)
[2016-09-15 16:00] VITALS: BP 144/83
[2016-09-15] MEDS: CEFTRIAXONE 1 G in IV D5W 50 ML IV SCH (17:45)
[2016-09-15 20:00] VITALS: BP 170/77
[2016-09-15 21:30] VITALS: BP 150/56
[2016-09-15] MEDS: INSULIN DETEMIR 100 UNIT/ML CARTRIDGE SQ SCH (22:45)
[2016-09-15] MEDS: SIMVASTATIN 20 MG TABLET PO SCH (22:47)
[2016-09-16] MEDS: VANCOMYCIN 1 GM in IV D5W 250 ML IV SCH ×2 (00:41→14:54)
[2016-09-16] MEDS: IV 1/2NS 1000 ML 1,000 ML IV PRN (00:42)
[2016-09-16] MEDS: INSULIN REGULAR, HUMAN 100 UNIT/ML 3 ML VIAL SQ PRN ×4 (06:47→22:29)
[2016-09-16] MEDS: ASCORBIC ACID 500 MG TABLET PO SCH ×2 (07:54→17:53)
[2016-09-16] MEDS: ALLOPURINOL 100 MG TABLET PO SCH (07:54)
[2016-09-16] MEDS: ZINC SULFATE 220 MG CAPSULE PO SCH (07:54)
[2016-09-16] MEDS: ASPIRIN EC 81 MG TABLET.DR PO SCH (07:54)
[2016-09-16] MEDS: ACIDOPHILUS/BULGARICUS 1 EACH TAB.CHEW PO SCH ×3 (07:55→17:53)
[2016-09-16] MEDS: PANTOPRAZOLE 40 MG TABLET.DR PO SCH (07:55)
[2016-09-16] MEDS: HYDROCODONE/APAP 10/325MG 1 EA TABLET PO SCH (07:55)
[2016-09-16] MEDS: ATENOLOL 25 MG TABLET PO SCH (07:58)
[2016-09-16 08:00] VITALS: BP 160/88
[2016-09-16] MEDS: VALSARTAN 80 MG TABLET PO SCH (08:03)
[2016-09-16] MEDS: ENOXAPARIN SODIUM 40 MG/0.4 ML DISP.SYRIN SQ SCH (08:04)
[2016-09-16] MEDS: BLOOD SUGAR DIAGNOSTIC 1 EACH STRIP IN SCH ×4 (08:05→21:08)
[2016-09-16] MEDS: BLOOD SUGAR DIAGNOSTIC 1 EACH STRIP VI SCH ×4 (08:06→21:26)
[2016-09-16 08:10] LABS: CALCIUM, SERUM 9.3 mg/dL (8.5-10.1); CREATININE 1.1 mg/dL (0.6-1.3); POTASSIUM 4.6 mmol/L (3.5-5.1)
[2016-09-16] MEDS: SOD FERRIC GLUC 125 MG in IV NS 0.9% 100 ML IV SCH (14:55)
[2016-09-16 16:00] VITALS: BP 167/90
[2016-09-16] MEDS: CEFTRIAXONE 1 G in IV D5W 50 ML IV SCH (17:53)
[2016-09-16 20:00] VITALS: BP 152/84
[2016-09-16] MEDS: SIMVASTATIN 20 MG TABLET PO SCH (21:04)
[2016-09-16] MEDS: HYDROCODONE/APAP 10/325MG 1 EA TABLET PO PRN (21:05)
[2016-09-16] MEDS: INSULIN DETEMIR 100 UNIT/ML CARTRIDGE SQ SCH (21:26)
[2016-09-17] MEDS: VANCOMYCIN 0.75 GM in IV D5W 250 ML IV SCH ×2 (00:47→12:32)
[2016-09-17] MEDS: HYDROCODONE/APAP 10/325MG 1 EA TABLET PO PRN ×3 (03:11→21:08)
[2016-09-17] MEDS: PANTOPRAZOLE 40 MG TABLET.DR PO SCH (06:53)
[2016-09-17] MEDS: BLOOD SUGAR DIAGNOSTIC 1 EACH STRIP IN SCH ×4 (06:53→21:08)
[2016-09-17] MEDS: BLOOD SUGAR DIAGNOSTIC 1 EACH STRIP VI SCH ×4 (06:53→21:08)
[2016-09-17] MEDS: INSULIN REGULAR, HUMAN 100 UNIT/ML 3 ML VIAL SQ PRN ×3 (06:56→16:59)
[2016-09-17 08:00] VITALS: BP 177/97
[2016-09-17 08:01] LABS: CALCIUM, SERUM 9.3 mg/dL (8.5-10.1); CREATININE 1.1 mg/dL (0.6-1.3); POTASSIUM 4.2 mmol/L (3.5-5.1)
[2016-09-17] MEDS: ASPIRIN EC 81 MG TABLET.DR PO SCH (08:18)
[2016-09-17] MEDS: VALSARTAN 80 MG TABLET PO SCH (08:19)
[2016-09-17] MEDS: ALLOPURINOL 100 MG TABLET PO SCH (08:20)
[2016-09-17] MEDS: ACIDOPHILUS/BULGARICUS 1 EACH TAB.CHEW PO SCH ×3 (08:20→16:16)
[2016-09-17] MEDS: hydrALAZINE HCL 25 MG TABLET PO PRN (08:20)
[2016-09-17] MEDS: ZINC SULFATE 220 MG CAPSULE PO SCH (08:20)
[2016-09-17] MEDS: ATENOLOL 25 MG TABLET PO SCH (08:20)
[2016-09-17] MEDS: ASCORBIC ACID 500 MG TABLET PO SCH ×2 (08:20→16:17)
[2016-09-17] MEDS: HYDROCODONE/APAP 10/325MG 1 EA TABLET PO SCH (08:21)
[2016-09-17] MEDS: ENOXAPARIN SODIUM 40 MG/0.4 ML DISP.SYRIN SQ SCH (08:25)
[2016-09-17] MEDS: IV 1/2NS 1000 ML 1,000 ML IV PRN (11:24)
[2016-09-17] MEDS: SOD FERRIC GLUC 125 MG in IV NS 0.9% 100 ML IV SCH (14:25)
[2016-09-17 16:00] VITALS: BP 159/75
[2016-09-17 20:00] VITALS: BP 147/76
[2016-09-17] MEDS: SIMVASTATIN 20 MG TABLET PO SCH (21:07)
[2016-09-17] MEDS: INSULIN DETEMIR 100 UNIT/ML CARTRIDGE SQ SCH (22:17)
[2016-09-17] MEDS: *INSULIN REGULAR(HUMULIN R)HUM 100 UNIT/ML VIAL SQ PRN (22:27)
[2016-09-18] MEDS: IV 1/2NS 1000 ML 1,000 ML IV PRN (01:21)
[2016-09-18] MEDS: VANCOMYCIN 0.75 GM in IV D5W 250 ML IV SCH ×2 (01:24→18:00)
[2016-09-18] MEDS ORDERED: MORPHINE SULFATE INJ 2 MG/ML DISP.SYRIN ONE (02:32)
[2016-09-18] MEDS: MORPHINE SULFATE INJ 2 MG/ML DISP.SYRIN IV PRN ×4 (02:40→20:23)
[2016-09-18] MEDS: PANTOPRAZOLE 40 MG TABLET.DR PO SCH (07:30)
[2016-09-18] MEDS: BLOOD SUGAR DIAGNOSTIC 1 EACH STRIP IN SCH ×4 (07:32→21:27)
[2016-09-18] MEDS: BLOOD SUGAR DIAGNOSTIC 1 EACH STRIP VI SCH ×3 (07:32→21:27)
[2016-09-18 08:00] VITALS: BP 146/86
[2016-09-18 08:35] LABS: CALCIUM, SERUM 8.9 mg/dL (8.5-10.1); CREATININE 1.1 mg/dL (0.6-1.3); POTASSIUM 4.4 mmol/L (3.5-5.1)
[2016-09-18] MEDS: VALSARTAN 80 MG TABLET PO SCH (09:00)
[2016-09-18] MEDS: ACIDOPHILUS/BULGARICUS 1 EACH TAB.CHEW PO SCH ×3 (09:00→17:13)
[2016-09-18] MEDS: ZINC SULFATE 220 MG CAPSULE PO SCH (09:00)
[2016-09-18] MEDS: ASPIRIN EC 81 MG TABLET.DR PO SCH (09:00)
[2016-09-18] MEDS: HYDROCODONE/APAP 10/325MG 1 EA TABLET PO SCH (09:00)
[2016-09-18] MEDS: ATENOLOL 25 MG TABLET PO SCH (09:00)
[2016-09-18] MEDS: ASCORBIC ACID 500 MG TABLET PO SCH ×2 (09:00→17:13)
[2016-09-18] MEDS: ENOXAPARIN SODIUM 40 MG/0.4 ML DISP.SYRIN SQ SCH (09:00)
[2016-09-18] MEDS: ALLOPURINOL 100 MG TABLET PO SCH (09:00)
[2016-09-18] MEDS ORDERED: BUPIVACAINE 0.5 % PF 150 MG/30 ML VIAL ONE (09:12)
[2016-09-18] MEDS ORDERED: MIDAZOLAM HCL 2 MG/2ML VIAL ONE (09:36)
[2016-09-18] MEDS ORDERED: FENTANYL PF 100MCG/2ML AMPUL ONE (09:36)
[2016-09-18] MEDS: INSULIN REGULAR, HUMAN 100 UNIT/ML 3 ML VIAL SQ PRN ×3 (14:05→21:29)
[2016-09-18] MEDS ORDERED: SECONDARY IV SET 1 EA INFUS.SET MC ONE (15:03)
[2016-09-18] MEDS: SOD FERRIC GLUC 125 MG in IV NS 0.9% 100 ML IV SCH (15:09)
[2016-09-18 16:00] VITALS: BP 135/60
[2016-09-18] MEDS ORDERED: SILVER NITRATE APPLICATOR 1 EA BOX TP ONE ×2 (16:00)
[2016-09-18] MEDS ORDERED: CELLULOSE,OXIDIZED 1 EA PACK MC ONE (16:00)
[2016-09-18 20:00] VITALS: BP 166/88
[2016-09-18 20:27] VITALS: BP 166/88
[2016-09-18] MEDS: SIMVASTATIN 20 MG TABLET PO SCH (21:27)
[2016-09-18] MEDS: INSULIN DETEMIR 100 UNIT/ML CARTRIDGE SQ SCH (21:32)
[2016-09-18 22:00] VITALS: BP 161/80
[2016-09-18] MEDS: hydrALAZINE HCL 25 MG TABLET PO PRN (22:47)
[2016-09-19] MEDS: VANCOMYCIN 0.75 GM in IV D5W 250 ML IV SCH ×2 (01:10→12:31)
[2016-09-19] MEDS: HYDROCODONE/APAP 10/325MG 1 EA TABLET PO PRN ×2 (01:22→17:58)
[2016-09-19] MEDS: BLOOD SUGAR DIAGNOSTIC 1 EACH STRIP IN SCH ×5 (06:30→21:21)
[2016-09-19] MEDS: PANTOPRAZOLE 40 MG TABLET.DR PO SCH ×2 (06:52→08:44)
[2016-09-19] MEDS: BLOOD SUGAR DIAGNOSTIC 1 EACH STRIP VI SCH ×3 (06:52→17:30)
[2016-09-19] MEDS: INSULIN REGULAR, HUMAN 100 UNIT/ML 3 ML VIAL SQ PRN ×3 (06:54→18:00)
[2016-09-19 08:00] VITALS: BP 158/85
[2016-09-19 08:22] LABS: CALCIUM, SERUM 9.2 mg/dL (8.5-10.1)
[2016-09-19] MEDS: ZINC SULFATE 220 MG CAPSULE PO SCH (08:44)
[2016-09-19] MEDS: ASCORBIC ACID 500 MG TABLET PO SCH ×2 (08:44→17:58)
[2016-09-19] MEDS: ALLOPURINOL 100 MG TABLET PO SCH (08:45)
[2016-09-19] MEDS: ACIDOPHILUS/BULGARICUS 1 EACH TAB.CHEW PO SCH ×3 (08:45→17:58)
[2016-09-19] MEDS: ATENOLOL 25 MG TABLET PO SCH (08:46)
[2016-09-19] MEDS: VALSARTAN 80 MG TABLET PO SCH (08:46)
[2016-09-19] MEDS: HYDROCODONE/APAP 10/325MG 1 EA TABLET PO SCH (08:58)
[2016-09-19] MEDS: MORPHINE SULFATE INJ 2 MG/ML DISP.SYRIN IV PRN ×2 (08:58→21:21)
[2016-09-19] MEDS: ASPIRIN EC 81 MG TABLET.DR PO SCH (09:00)
[2016-09-19] MEDS: ENOXAPARIN SODIUM 40 MG/0.4 ML DISP.SYRIN SQ SCH (09:00)
[2016-09-19] MEDS: HYDROCODONE/APAP 5/325MG 1 EACH TABLET PO PRN (12:31)
[2016-09-19] MEDS: SOD FERRIC GLUC 125 MG in IV NS 0.9% 100 ML IV SCH (14:38)
[2016-09-19 16:00] VITALS: BP 149/83
[2016-09-19 20:00] VITALS: BP 147/69
[2016-09-19] MEDS: SIMVASTATIN 20 MG TABLET PO SCH (21:21)
[2016-09-19] MEDS: INSULIN DETEMIR 100 UNIT/ML CARTRIDGE SQ SCH (21:27)
[2016-09-19] MEDS: *INSULIN REGULAR(HUMULIN R)HUM 100 UNIT/ML VIAL SQ PRN (21:28)
[2016-09-20] MEDS: IV 1/2NS 1000 ML 1,000 ML IV PRN (00:40)
[2016-09-20] MEDS: VANCOMYCIN 0.75 GM in IV D5W 250 ML IV SCH ×2 (00:44→13:29)
[2016-09-20] MEDS: HYDROCODONE/APAP 10/325MG 1 EA TABLET PO PRN ×3 (00:55→17:21)
[2016-09-20] MEDS: INSULIN REGULAR, HUMAN 100 UNIT/ML 3 ML VIAL SQ PRN ×2 (07:26→17:32)
[2016-09-20 07:31] LABS: BASOPHILS % (AUTO) 0.1 % (0.0-2.0); DIFF TOTAL % 100 %; EOSINOPHILS # (AUTO) 0.3 /CMM (0.0-0.7); EOSINOPHILS % (AUTO) 2.9 % (0.0-6.0); HEMATOCRIT 32 % (39-51); HEMOGLOBIN 9.9 g/dL (13.5-17.5); LYMPHOCYTES # (AUTO) 1.3 /CMM (0.8-4.8); LYMPHOCYTES % (AUTO) 13.7 % (20.0-44.0); MEAN CORPUSCULAR HEMOGLOBIN 24 PG (26.0-33.0); MEAN CORPUSCULAR HGB CONC 32 g/dl (31.0-36.0); MEAN CORPUSCULAR VOLUME 75 fL (80-96); MONOCYTES # (AUTO) 0.5 /CMM (0.1-1.30); MONOCYTES % (AUTO) 4.9 % (2.0-12.0); NEUTROPHILS # (AUTO) 7.5 /CMM (1.8-8.9); NEUTROPHILS % (AUTO) 78.4 % (43.0-81.0); PLATELET COUNT (AUTO) 310 /CMM (150-450); WHITE BLOOD COUNT (AUTO) 9.6 K/uL (4.3-11.0)
[2016-09-20 07:44] LABS: CALCIUM, SERUM 9.1 mg/dL (8.5-10.1); CREATININE 1.1 mg/dL (0.6-1.3); POTASSIUM 4.1 mmol/L (3.5-5.1)
[2016-09-20 08:00] VITALS: BP 160/83
[2016-09-20] MEDS: ENOXAPARIN SODIUM 40 MG/0.4 ML DISP.SYRIN SQ SCH (09:00)
[2016-09-20] MEDS: ZINC SULFATE 220 MG CAPSULE PO SCH (11:03)
[2016-09-20] MEDS: ASPIRIN EC 81 MG TABLET.DR PO SCH (11:03)
[2016-09-20] MEDS: ACIDOPHILUS/BULGARICUS 1 EACH TAB.CHEW PO SCH ×3 (11:03→17:19)
[2016-09-20] MEDS: VALSARTAN 80 MG TABLET PO SCH (11:04)
[2016-09-20] MEDS: hydrALAZINE HCL 25 MG TABLET PO PRN (11:04)
[2016-09-20] MEDS: HYDROCODONE/APAP 10/325MG 1 EA TABLET PO SCH (11:05)
[2016-09-20] MEDS: ATENOLOL 25 MG TABLET PO SCH (11:06)
[2016-09-20] MEDS: ALLOPURINOL 100 MG TABLET PO SCH (11:06)
[2016-09-20] MEDS: ASCORBIC ACID 500 MG TABLET PO SCH ×2 (11:10→17:28)
[2016-09-20] MEDS: BLOOD SUGAR DIAGNOSTIC 1 EACH STRIP IN SCH ×3 (12:00→22:03)
[2016-09-20 16:00] VITALS: BP 154/84
[2016-09-20 17:08] VITALS: BP 125/75
[2016-09-20 20:00] VITALS: BP 124/81
[2016-09-20] MEDS: SIMVASTATIN 20 MG TABLET PO SCH (21:53)
[2016-09-20] MEDS: INSULIN DETEMIR 100 UNIT/ML CARTRIDGE SQ SCH (22:02)
[2016-09-20] MEDS: *INSULIN REGULAR(HUMULIN R)HUM 100 UNIT/ML VIAL SQ PRN (22:09)
[2016-09-21] MEDS: HYDROCODONE/APAP 10/325MG 1 EA TABLET PO PRN (01:02)
[2016-09-21] MEDS: VANCOMYCIN 0.75 GM in IV D5W 250 ML IV SCH (01:05)
[2016-09-21] MEDS: IV 1/2NS 1000 ML 1,000 ML IV PRN (01:16)
[2016-09-21] MEDS: PANTOPRAZOLE 40 MG TABLET.DR PO SCH (06:36)
[2016-09-21] MEDS: *INSULIN REGULAR(HUMULIN R)HUM 100 UNIT/ML VIAL SQ PRN (06:43)
[2016-09-21] MEDS: HYDROCODONE/APAP 5/325MG 1 EACH TABLET PO PRN (06:46)
[2016-09-21] MEDS: BLOOD SUGAR DIAGNOSTIC 1 EACH STRIP IN SCH (06:47)
[2016-09-21 08:00] VITALS: BP 128/77
[2016-09-21] MEDS: ACIDOPHILUS/BULGARICUS 1 EACH TAB.CHEW PO SCH (08:23)
[2016-09-21] MEDS: ATENOLOL 25 MG TABLET PO SCH (08:23)
[2016-09-21] MEDS: ASCORBIC ACID 500 MG TABLET PO SCH (08:23)
[2016-09-21 08:24] VITALS: BP 128/77
[2016-09-21] MEDS: HYDROCODONE/APAP 10/325MG 1 EA TABLET PO SCH (08:24)
[2016-09-21] MEDS: ZINC SULFATE 220 MG CAPSULE PO SCH (08:24)
[2016-09-21] MEDS: VALSARTAN 80 MG TABLET PO SCH (08:24)
[2016-09-21] MEDS: ALLOPURINOL 100 MG TABLET PO SCH (08:24)
[2016-09-21] MEDS: ASPIRIN EC 81 MG TABLET.DR PO SCH ×3 (08:24→08:49)
[2016-09-21] MEDS: ENOXAPARIN SODIUM 40 MG/0.4 ML DISP.SYRIN SQ SCH ×2 (08:25→08:31)
[2016-09-21 08:36] LABS: CALCIUM, SERUM 9.3 mg/dL (8.5-10.1); CREATININE 1.2 mg/dL (0.6-1.3); POTASSIUM 4.4 mmol/L (3.5-5.1)
[2016-09-21] MEDS ORDERED: VANC1VIA IV (10:31)
== END 2016-09-21 11:40 | DRG 464 ==
LOC: ER 09:42 → UNDOADMIN 19:46 → MED 19:46
PROC: 0KBW0ZZ Excision of Left Foot Muscle, Open Approach (ICD-10-PCS; 2016-09-14)
PROC: 0QBP0ZZ Excision of Left Metatarsal, Open Approach (ICD-10-PCS; principal; 2016-09-14 13:00)
PROC: 0JBR0ZZ Excision of Left Foot Subcutaneous Tissue and Fascia, Open Approach (ICD-10-PCS; 2016-09-18)
PROC: 0KBW0ZZ Excision of Left Foot Muscle, Open Approach (ICD-10-PCS; 2016-09-18)
DX: T87.54 Necrosis of amputation stump, left lower extremity (principal); M86.672 Other chronic osteomyelitis, left ankle and foot; L03.116 Cellulitis of left lower limb; M86.172 Other acute osteomyelitis, left ankle and foot; E11.69 Type 2 diabetes mellitus with other specified complication; E11.621 Type 2 diabetes mellitus with foot ulcer; E11.22 Type 2 diabetes mellitus with diabetic chronic kidney disease; E11.65 Type 2 diabetes mellitus with hyperglycemia; I12.9 Hypertensive chronic kidney disease with stage 1 through stage 4 chronic kidney disease, or unspecified chronic kidney disease; N18.2 Chronic kidney disease, stage 2 (mild); E11.21 Type 2 diabetes mellitus with diabetic nephropathy; E11.40 Type 2 diabetes mellitus with diabetic neuropathy, unspecified; D64.9 Anemia, unspecified; E78.5 Hyperlipidemia, unspecified; Z79.4 Long term (current) use of insulin; Z87.442 Personal history of urinary calculi; E66.9 Obesity, unspecified; K21.9 Gastro-esophageal reflux disease without esophagitis; M10.9 Gout, unspecified; N20.0 Calculus of kidney; N40.0 Benign prostatic hyperplasia without lower urinary tract symptoms; Z87.891 Personal history of nicotine dependence; L97.524 Non-pressure chronic ulcer of other part of left foot with necrosis of bone; Y83.9 Surgical procedure, unspecified as the cause of abnormal reaction of the patient, or of later complication, without mention of misadventure at the time of the procedure; Y92.89 Other specified places as the place of occurrence of the external cause; B95.62 Methicillin resistant Staphylococcus aureus infection as the cause of diseases classified elsewhere
CPT/HCPCS: 36415; 71010-TC; 73630-TC; 73718-TC; 80048-TC; 80053-TC; 80061-TC; 80076-TC; 80202-TC; 81000-TC; 82728-TC; 82962-TC; 83540-TC; 83605-TC; 83735-TC; 84100-TC; 84443-TC; 84484-TC; 85025-TC; 85730-TC; 87040-TC; 87070-TC; 87075-TC; 87081-TC; 87186-TC; 93307-TC; A4606; A6209; A6253; A6402; J0696; J1650; J1815; J2250; J2270; J2405; J2543; J2916; J3010; J3370; J3475; J3490; J7030; J7060; Z7610

== ENCOUNTER 2016-09-27 15:30 | Emergency (ER) | payer MEDICARE, OTHER ==
[~2016-09-27] VITALS: Ht 190.5 cm; Wt 138.3 kg
[~2016-09-27 15:30] MED LIST changes: +ACET-868 PO; -ACET325T53 PO; +ACID1TAB12 PO; +ASCO500T9 PO; +ATEN25TA PO; -ATOR10TA PO; +BLOO-668 IN; -CARV25TA PO; -CEFT1FRO2 IV; -DILT240T12 PO; -FENO145T PO; -HYDR-3326 PO; +HYDR-4076 PO; +HYDR-548 PO; +INSU100I19 SQ; +INSU100V3 SQ; -Insulin Glargine,Hum.rec.anlog SQ; -LISI1TAB11 PO; +MAG30ORA PO; +MELA3TAB PO; -METF10002 PO; -MULT1CAP34 PO; -PANT40TA2 PO; +PANT40TA4 PO; -POTA99TA14 PO; +SIMV20TA6 PO; +VANC1VIA IV; +ZINC220C8 PO; -Zolpidem Tartrate PO
[2016-09-27 17:29] VITALS: BP 128/77
== END 2016-09-27 17:30 | disposition home or self-care (01) ==
LOC: ER 15:34
DX: E11.621 Type 2 diabetes mellitus with foot ulcer (principal); L97.513 Non-pressure chronic ulcer of other part of right foot with necrosis of muscle; E11.59 Type 2 diabetes mellitus with other circulatory complications; I10 Essential (primary) hypertension; Z88.1 Allergy status to other antibiotic agents; Z45.2 Encounter for adjustment and management of vascular access device; Z79.4 Long term (current) use of insulin; Z85.9 Personal history of malignant neoplasm, unspecified
CPT/HCPCS: 36569; 99284; A4606; Z7610

== ENCOUNTER 2016-11-01 08:22 | Inpatient (IN) | payer MEDICARE, OTHER ==
[~2016-11-01] VITALS: Ht 182.9 cm; Wt 90.7 kg
--- NOTE | 2016-11-01 08:38 | NUR ---
AAOX3, BIB PA FROM [facility] FOR L FOOT WOUND CHECK AND SKIN GRAFT SCHEDULED TOMORROW. SKIN IS WARM AND DRY. RESP IS EVEN AND UNLABORED WITH NAD NOTED. AWAITING MD FOR EVAL.
[2016-11-01 08:59] LABS: BASOPHILS % (AUTO) 0.2 % (0.0-2.0); EOSINOPHILS # (AUTO) 0.4 /CMM (0.0-0.7); EOSINOPHILS % (AUTO) 3.1 % (0.0-6.0); HEMATOCRIT 38 % (39-51); HEMOGLOBIN 11.7 g/dL (13.5-17.5); LYMPHOCYTES # (AUTO) 1.9 /CMM (0.8-4.8); LYMPHOCYTES % (AUTO) 16.2 % (20.0-44.0); MEAN CORPUSCULAR HEMOGLOBIN 22 PG (26.0-33.0); MEAN CORPUSCULAR HGB CONC 31 g/dl (31.0-36.0); MEAN CORPUSCULAR VOLUME 72 fL (80-96); MONOCYTES # (AUTO) 0.9 /CMM (0.1-1.30); NEUTROPHILS # (AUTO) 8.4 /CMM (1.8-8.9); NEUTROPHILS % (AUTO) 72.5 % (43.0-81.0); PLATELET COUNT (AUTO) 341 /CMM (150-450); RDW COEFFICIENT OF VARIATION 18.5 (11.5-15.0); RED BLOOD CELL COUNT(AUTO) 5.35 MIL/uL (4.5-6.0); WHITE BLOOD COUNT (AUTO) 11.6 K/uL (4.3-11.0)
[2016-11-01] MEDS ORDERED: IV NS 0.9% 1,000 ML BAG IV ONE ×2 (09:00→09:30)
[2016-11-01] MEDS ORDERED: VANC1VIA IV (09:12)
[2016-11-01] MEDS ORDERED: OMEP-99 PO (09:12)
--- NOTE | 2016-11-01 09:12 | NUR ---
XRAY IN PROGRESS AT BS
[2016-11-01] MEDS ORDERED: IV SET PRIMARY PUMP SET 1 EA INFUS.SET MC ONE ×2 (09:14→16:15)
[2016-11-01] MEDS ORDERED: IV NS 0.9% 1,000 ML ONE ×2 (09:14→09:29)
[2016-11-01] MEDS ORDERED: INSU100V7 SQ (09:18)
[2016-11-01] MEDS ORDERED: INSU100V11 SQ (09:18)
[2016-11-01 09:20] LABS: INR 1.04 (0.87-1.13); PROTHROMBIN TIME 11.1 SECS (9.5-12.7)
[2016-11-01 09:22] LABS: ALBUMIN 3.1 g/dL (3.4-5.0); BILIRUBIN,DIRECT 0.1 mg/dL (0.0-0.2); BILIRUBIN,TOTAL 0.4 mg/dL (0.2-1.0); CALCIUM, SERUM 9.6 mg/dL (8.5-10.1); CREATININE 1.4 mg/dL (0.6-1.3); POTASSIUM 4.5 mmol/L (3.5-5.1); TOTAL PROTEIN, SERUM 7.6 g/dL (6.4-8.2)
[2016-11-01] MEDS ORDERED: SODI473S8 MC (09:24)
[2016-11-01] MEDS ORDERED: IV SET PRIMARY 1 EA INFUS.SET MC ONE (09:29)
[2016-11-01] MEDS ORDERED: INSULIN REGULAR, HUMAN 100 UNIT/ML 10 ML VIAL ONE (09:30)
[2016-11-01] MEDS ORDERED: INSULIN REGULAR, HUMAN 100 UNIT/ML 10 ML VIAL SQ ONE ×2 (09:30→22:30)
--- NOTE | 2016-11-01 10:30 | NUR ---
REPORT GIVEN TO MAYRA FITZGERALD FOR MILA MS 203
--- NOTE | 2016-11-01 10:50 | NUR ---
RN NOTES RECEIVED PT FROM ER, TRANSPORTED VIA GURNEY, ACCOMPANIED BY 1 TECH. INITIAL VS T- 98.8 BP- 161/93 P-100 R- 18 O2 SAT-896% ON RA. IN NO APPARENT DISTRESS. PT ADMITTED FOR INFECTED LEFT FOOT DIABETIC ULCER. ADMITTED UNDER [facility], UNDER DR DONIS. SKIN AND BODY ASSESSMENT DONE- PHOTOS TAKEN AND PLACED IN CHART. PT NOTED WITH RIGHT UPPER ARM PICC LINE; FLUSHES WELL AND WITH INTACT DRESSING. WILL CONTINUE TO MONITOR
[2016-11-01] MEDS: hydrALAZINE HCL 25 MG TABLET PO PRN (11:59)
[2016-11-01] MEDS: HYDROCODONE/APAP 10/325MG 1 EA TABLET PO PRN ×3 (11:59→20:24)
[2016-11-01] MEDS ORDERED: MAG HYDROX/AL HYDROX/SIMETH 30 ML UDC PO PRN (12:00)
[2016-11-01] MEDS ORDERED: ACETAMINOPHEN 325 MG TABLET PO PRN (12:00)
[2016-11-01] MEDS ORDERED: Medication Not On Formulary EA (Melatonin 3 MG) PO PRN (12:00)
[2016-11-01] MEDS ORDERED: DEXTROSE 50%-WATER 50 ML DISP.SYRIN IV PRN (12:30)
[2016-11-01] MEDS: ASPIRIN 81 MG TAB.CHEW PO SCH (12:51)
[2016-11-01] MEDS: BLOOD SUGAR DIAGNOSTIC 1 EACH STRIP VI SCH ×3 (12:52→21:38)
[2016-11-01] MEDS: INSULIN REGULAR, HUMAN 100 UNIT/ML 3 ML VIAL SQ PRN ×2 (12:52→17:32)
[2016-11-01] MEDS ORDERED: INSULIN ASPART NOVOLOG 100 UNIT/ML CARTRIDGE SQ SCH (13:00)
[2016-11-01] MEDS: ACIDOPHILUS/BULGARICUS 1 EACH TAB.CHEW PO SCH ×2 (13:00→16:15)
[2016-11-01] MEDS: INSULIN ASPART NOVOLOG 100 UNIT/ML CARTRIDGE SQ SCH ×2 (14:00→17:32)
--- NOTE | 2016-11-01 14:30 | NUR ---
RN NOTES PT SEEN BY DR FLANAGAN- WITH NEW ORDERS NOTED AND CARRIED OUT
[2016-11-01] MEDS ORDERED: FEE PK DOSING 1 MIN EA MC ONE (15:05)
[2016-11-01] MEDS: ASCORBIC ACID 500 MG TABLET PO SCH (16:15)
[2016-11-01] MEDS: VANCOMYCIN 1 GM in IV D5W 250 ML IV SCH (16:20)
[2016-11-01 16:51] VITALS: BP 145/81
[2016-11-01] MEDS: DAKINS QUARTER STRENGTH (0.125%) 480 ML BOTTLE TOP SCH (17:29)
--- NOTE | 2016-11-01 17:45 | NUR ---
RN NOTES PT'S SIGNED ALL CONSENT FOR PENDING PROCEDURE. PLACED ON CHART
--- NOTE | 2016-11-01 18:00 | NUR ---
RN NOTES PT IN BED. AWAKE, ALERT, ORIENTED X 3. IN NO APPARENT DISTRESS. RESPIRATIONS EVEN AND UNLABORED. DENIES PAIN AND DISCOMFORT. PT REMINDED THAT HE IS NPO POST MIDNIGHT- VERBALIZED UNDERSTANDING. WILL ENDORSE TO ONCOMING SHIFT
--- NOTE | 2016-11-01 19:18 | NUR ---
MS RN NOTES RECEIVED PT IN BED, WATCHING TV AT THIS TIME. NO ACUTE DISTRESS,NO SOB NOTED. RESPIRATION IS EVEN AND UNLABORED. BRENDA PICC LINE INTACT AND PATENT , NO S/S OF INFILTRATION NOTED. DENIES ANY PAIN OR DISCOMFORT AT THIS TIME. NO S/S OF HYPO/HYPERGLYCEMIA NOTED. PT IS AFEBRILE. CALL LIGHT WITHIN REACH. BED ON LOWEST LEVEL. POC DISCUSSED WITH PT VERBALIZED UNDERSTANDING. PT ON NPO POST MIDNIGHT FOR SKIN GRAFT. WILL CONT TO MONITOR.
[2016-11-01 20:00] VITALS: BP 138/95
--- NOTE | 2016-11-01 20:00 | NUR ---
MS RN NOTES LEFT FOOT WOUND WITH INTACT DRESSING.
[2016-11-01] MEDS: SIMVASTATIN 20 MG TABLET PO SCH (21:32)
[2016-11-01] MEDS: *INSULIN REGULAR(HUMULIN R)HUM 100 UNIT/ML VIAL SQ PRN (21:38)
[2016-11-01] MEDS: INSULIN DETEMIR 100 UNIT/ML CARTRIDGE SQ SCH (21:43)
[2016-11-01 22:00] VITALS: BP 138/95
--- NOTE | 2016-11-01 22:25 | NUR ---
PT'S BS : 403 AT THIS TIME, INSULIN SLIDING SCALE AND LEVEMIR GIVEN SQ, PT ON NPO FOR SKIN GRAFT IN AM. DR. DONIS INFORMED WITH N.O TO GIVE ADDITIONAL 12 UNITS OF REGULAR INSULIN, NOTED AND CARRIED OUT . WILL CONT TO MONITOR.
[2016-11-01] MEDS ORDERED: INSULIN REGULAR, HUMAN 100 UNIT/ML 10 ML VIAL IV ONE (22:30)
[2016-11-02] VITALS (8 sets, daily range): BP systolic 108–141; BP diastolic 62–89
[2016-11-02] MEDS: HYDROCODONE/APAP 10/325MG 1 EA TABLET PO PRN ×4 (00:44→20:51)
--- NOTE | 2016-11-02 03:30 | NUR ---
PT REQUESTING FOR PAIN MEDICINE IV D/T LEFT FOOT PAIN, NORCO CANNOT BE TAKEN AT THIS TIME, PT ON NPO, RELAYED TO DR. YOUNG WITH N.O NOTED AND CARRIED OUT.
[2016-11-02] MEDS ORDERED: MORPHINE SULFATE INJ 2 MG/ML DISP.SYRIN ONE (03:58)
[2016-11-02] MEDS: MORPHINE SULFATE INJ 2 MG/ML DISP.SYRIN IV PRN ×4 (05:11→22:53)
[2016-11-02] MEDS: BLOOD SUGAR DIAGNOSTIC 1 EACH STRIP VI SCH ×4 (05:57→21:39)
--- NOTE | 2016-11-02 06:26 | NUR ---
MS RN NOTES PT IN BED, WATCHING TV AT THIS TIME. NO ACUTE DISTRESS,NO SOB NOTED. RESPIRATION IS EVEN AND UNLABORED. BRENDA PICC LINE INTACT AND PATENT , NO S/S OF INFILTRATION NOTED. DENIES ANY PAIN OR DISCOMFORT AT THIS TIME. NO S/S OF HYPO/HYPERGLYCEMIA NOTED. LATEST BS : 258. PT IS AFEBRILE. CALL LIGHT WITHIN REACH. BED ON LOWEST LEVEL. POC DISCUSSED WITH PT VERBALIZED UNDERSTANDING. PT ON NPO POST MIDNIGHT FOR LEFT WOUND SKIN GRAFT , PT AWARE AND VERBALIZED UNDERSTANDING REGARDING THE PROCEDURE. WILL ENDORSE TO NEXT SHIFT FOR MILA.
[2016-11-02 06:53] LABS: CREATININE 0.9 mg/dL (0.6-1.3); POTASSIUM 3.7 mmol/L (3.5-5.1)
[2016-11-02] MEDS ORDERED: LIDOCAINE HCL/PF 1% 30 ML SDV ONE (06:54)
[2016-11-02] MEDS ORDERED: MINERAL OIL 10 ML VIAL MC ONE (06:54)
[2016-11-02] MEDS ORDERED: BUPIVACAINE MPF 0.5% W/EPI INJ 30 ML VIAL ONE (07:05)
--- NOTE | 2016-11-02 07:15 | NUR ---
MS/RN Patient received Patient taken to OR at this time, chart with patient.
[2016-11-02] MEDS ORDERED: FENTANYL PF 250MCG/5ML AMPUL ONE (07:24)
[2016-11-02] MEDS: INSULIN ASPART NOVOLOG 100 UNIT/ML CARTRIDGE SQ SCH ×3 (08:00→17:08)
[2016-11-02] MEDS ORDERED: GELATIN SPONGE,ABSORBABLE 1 SPONGE SPONGE TP ONE (08:05)
[2016-11-02] MEDS: DAKINS QUARTER STRENGTH (0.125%) 480 ML BOTTLE TOP SCH ×2 (09:00→17:00)
[2016-11-02] MEDS ORDERED: IV NS 0.9% 1,000 ML ONE (09:33)
--- NOTE | 2016-11-02 10:00 | NUR ---
MS/RN Back from OR Patient back from OR, S/P application of split thickness graft and application of wound vac to left lower extremity. Doner site ti left thigh noted with dry dressing, wound vac to left foot, no drainage seen in cannister. Wound vac at 125. Vital signs upon return stable, morphine 1mg given for pain scale 8/10, will monitor effectiveness.
[2016-11-02] MEDS ORDERED: SECONDARY IV SET 1 EA INFUS.SET MC ONE (10:12)
[2016-11-02] MEDS: VANCOMYCIN 1 GM in IV D5W 250 ML IV SCH ×2 (10:21→21:28)
[2016-11-02] MEDS: ASPIRIN 81 MG TAB.CHEW PO SCH (12:10)
[2016-11-02] MEDS: PANTOPRAZOLE 40 MG TABLET.DR PO SCH (12:11)
[2016-11-02] MEDS: ACIDOPHILUS/BULGARICUS 1 EACH TAB.CHEW PO SCH ×3 (12:11→17:04)
[2016-11-02] MEDS: ALLOPURINOL 100 MG TABLET PO SCH (12:11)
[2016-11-02] MEDS: ASCORBIC ACID 500 MG TABLET PO SCH ×2 (12:11→17:04)
[2016-11-02] MEDS: ZINC SULFATE 220 MG CAPSULE PO SCH (12:11)
[2016-11-02] MEDS: ATENOLOL 25 MG TABLET PO SCH (12:12)
[2016-11-02] MEDS: INSULIN REGULAR, HUMAN 100 UNIT/ML 3 ML VIAL SQ PRN ×2 (12:17→17:04)
--- NOTE | 2016-11-02 12:56 | NUR ---
MS/RN Post Op Patient remains stable, vital signs all within normal range. No oozing noted through either dressing. Blood sugar at noon 329, insulin coverage given as per sliding scale. All 9am medications given at lunch time as patient was NPO this morning.
[2016-11-02] MEDS ORDERED: ANESTHESIA TRAY IN PYXIS 1 EA TRAY MC ONE (13:47)
--- NOTE | 2016-11-02 15:10 | NUR ---
MS/RN Rounds No new needs at this time, call light within reach.
--- NOTE | 2016-11-02 18:28 | NUR ---
MS/RN End note Has remained in stable condition since returning from OR, vital signs stable. Small area of oozing noted on left foot dressing. Wound vac in place with 5ml output in canister noted. Danilo skin graft site on left thigh remains dry. Last pain medication administered to patient at 1830, MS 1mg. No further needs at this time, will endorse to slot shift supervisor.
--- NOTE | 2016-11-02 19:15 | NUR ---
MS RN NOTES RECEIVED PT IN BED AWAKE, A/O X3. NO ACUTE DISTRESS, NO SOB NOTED. RESPIRATION IS EVEN AND UNLABORED. BRENDA PICC LINE INTACT AND PATENT , NO S/S OF INFECTION NOTED. LEFT FOOT WOUND WITH INTACT DRESSING CONNECTED TO WOUND VAC @ 125 MMHG, NOTED WITH 10CC OUTPUT. NO C/O PAIN OR DISCOMFORT AT THIS TIME. ALL NEEDS ATTENDED AND MET. KEPT COMFORTABLE. AFEBRILE. WILL CONTINUE TO MONITOR. CALL LIGHT WITHIN REACH.
[2016-11-02] MEDS: INSULIN DETEMIR 100 UNIT/ML CARTRIDGE SQ SCH (21:39)
[2016-11-02] MEDS: SIMVASTATIN 20 MG TABLET PO SCH (21:39)
[2016-11-02] MEDS: *INSULIN REGULAR(HUMULIN R)HUM 100 UNIT/ML VIAL SQ PRN (21:41)
[2016-11-03] MEDS: HYDROCODONE/APAP 10/325MG 1 EA TABLET PO PRN ×5 (01:06→22:03)
[2016-11-03] MEDS: MORPHINE SULFATE INJ 2 MG/ML DISP.SYRIN IV PRN ×4 (04:51→20:20)
[2016-11-03] MEDS: BLOOD SUGAR DIAGNOSTIC 1 EACH STRIP VI SCH ×4 (06:40→21:13)
[2016-11-03] MEDS: INSULIN REGULAR, HUMAN 100 UNIT/ML 3 ML VIAL SQ PRN ×3 (06:46→17:03)
[2016-11-03 06:49] LABS: CALCIUM, SERUM 8.8 mg/dL (8.5-10.1); CREATININE 1.1 mg/dL (0.6-1.3); POTASSIUM 4.5 mmol/L (3.5-5.1)
--- NOTE | 2016-11-03 07:37 | NUR ---
MS RN NOTES PT IN BED AWAKE, A/O X3. WATCHING TV AT THIS TIME. NO ACUTE DISTRESS, NO SOB NOTED. RESPIRATION IS EVEN AND UNLABORED. BRENDA PICC LINE INTACT AND PATENT , NO S/S OF INFECTION NOTED. LEFT FOOT WOUND WITH INTACT DRESSING CONNECTED TO WOUND VAC @ 125 MMHG. NO C/O PAIN OR DISCOMFORT AT THIS TIME. ALL NEEDS ATTENDED AND MET. KEPT COMFORTABLE. AFEBRILE. CALL LIGHT WITHIN REACH. WILL ENDORSE TO NEXT SHIFT FOR MILA.
[2016-11-03 08:00] VITALS: BP 138/68
--- NOTE | 2016-11-03 08:00 | NUR ---
MS/RN Patient received Patient received from restaurant shift supervisor. No needs at this time, denies pain. Call light within reach, will continue to monitor and ensure safety.
[2016-11-03] MEDS: ZINC SULFATE 220 MG CAPSULE PO SCH (08:40)
[2016-11-03] MEDS: PANTOPRAZOLE 40 MG TABLET.DR PO SCH (08:40)
[2016-11-03] MEDS: ASPIRIN 81 MG TAB.CHEW PO SCH (08:40)
[2016-11-03] MEDS: ACIDOPHILUS/BULGARICUS 1 EACH TAB.CHEW PO SCH ×3 (08:40→16:59)
[2016-11-03] MEDS: hydrALAZINE HCL 25 MG TABLET PO PRN ×2 (08:41→17:00)
[2016-11-03] MEDS: ASCORBIC ACID 500 MG TABLET PO SCH ×2 (08:41→16:59)
[2016-11-03] MEDS: ATENOLOL 25 MG TABLET PO SCH (08:41)
[2016-11-03] MEDS: ALLOPURINOL 100 MG TABLET PO SCH (08:41)
[2016-11-03] MEDS: DAKINS QUARTER STRENGTH (0.125%) 480 ML BOTTLE TOP SCH ×2 (08:42→17:00)
[2016-11-03] MEDS: INSULIN ASPART NOVOLOG 100 UNIT/ML CARTRIDGE SQ SCH ×3 (08:45→17:05)
--- NOTE | 2016-11-03 09:23 | NUR ---
MS/RN Medications Morning medications administered as ordered.
[2016-11-03] MEDS: VANCOMYCIN 1 GM in IV D5W 250 ML IV SCH ×2 (09:32→22:00)
--- NOTE | 2016-11-03 10:21 | NUR ---
MS/RN Tonja cottrell as ordered, level due at 2100.
--- NOTE | 2016-11-03 15:02 | NUR ---
MS/RN S/B Dr Colmenares Seen by Dr Colmenares - no new orders.
[2016-11-03 16:00] VITALS: BP 124/60
--- NOTE | 2016-11-03 18:23 | NUR ---
MS/RN End note No changes at this time. Dressings remain dry and intact, wound vac with 50ml output. Will endorse to production supervisor off shift.
--- NOTE | 2016-11-03 19:30 | NUR ---
MS RN OPENING NOTES: PATIENT IN BED, AOX3, ON ROOM AIR, BREATHING EVEN AND UNLABORED. APPEARS CALM AND IN NO DISTRESS. NOTED L FOOT WITH CLEAN INTACT DRESSING, ATTACHED TO WOUND VAC AT 125 MMHG, NOTED ABOUT 50 ML OF SEROSANGUINEOUS DRAINAGE IN COLLECTION CHAMBER. PATIENT HAS RUE PICC LINE, INTACT AND PATENT TO FLUSH. INSTRUCTED PATIENT TO KEEP LLE NWB, ELEVATED ON PILLOW. PROVIDED FOR COMFORT AND SAFETY. WILL CONT TO MONITOR. Addendum: 11/04/16 at 0554 by YONNY WARD RN CORRECTION: NOTED ABOUT 80 ML SEROSANGUINEOUS DRAINAGE IN WUOND VAC COLLECTION CHAMBER, NOT 50 ML.
[2016-11-03 20:00] VITALS: BP 137/66
--- NOTE | 2016-11-03 20:20 | NUR ---
RN NOTES: PATIENT C/O PAIN OVER LLE AND AREA OF SKIN GRAFT RATED 10/10. ADMINISTERED MORPHINE 1 MG IV. WILL CONT TO MONITOR.
[2016-11-03] MEDS: SIMVASTATIN 20 MG TABLET PO SCH (21:11)
[2016-11-03] MEDS: INSULIN DETEMIR 100 UNIT/ML CARTRIDGE SQ SCH (21:13)
[2016-11-03] MEDS: *INSULIN REGULAR(HUMULIN R)HUM 100 UNIT/ML VIAL SQ PRN (21:24)
[2016-11-03 22:00] VITALS: BP 137/66
--- NOTE | 2016-11-03 22:30 | NUR ---
RN NOTES: VANCOMYCIN 1 GM SCHEDULED AT THIS TIME NOT ADMINISTERED DUE TO TROUGH LEVEL AT 25.
[2016-11-04] MEDS: MORPHINE SULFATE INJ 2 MG/ML DISP.SYRIN IV PRN ×5 (00:58→20:13)
[2016-11-04] MEDS: HYDROCODONE/APAP 10/325MG 1 EA TABLET PO PRN ×5 (03:02→22:03)
[2016-11-04] MEDS: BLOOD SUGAR DIAGNOSTIC 1 EACH STRIP VI SCH ×4 (06:48→22:03)
[2016-11-04] MEDS: INSULIN REGULAR, HUMAN 100 UNIT/ML 3 ML VIAL SQ PRN ×3 (06:49→17:08)
[2016-11-04 06:55] LABS: POTASSIUM 5.1 mmol/L (3.5-5.1)
--- NOTE | 2016-11-04 07:01 | NUR ---
MS RN CLOSING NOTES: PATIENT IN BED AOX3, ON ROOM AIR, BREATHING EVEN AND UNLABORED. PICC LINE OVER BRNEDA INTACT AND PATENT TO FLUSH. BLOOD SUGAR CHECKED AT 268 MG/DL, ADMINISTERED 9 UNITS OF REGULAR INSULIN. DUE MEDS GIVEN. L FOOT MAINTAINED ON WOUND VAC AT 125 MMHG, MAINTAINED ELEVATED AND NWB. PROVIDED FOR COMFORT AND SAFETY. WILL ENDORSE TO AM RN FOR MILA.
--- NOTE | 2016-11-04 07:05 | NUR ---
MS RN NOTES RECEIVED PATIENT IN BED, SLEEPING COMFORTABLE, AROUSES EASILY. LEFT FOOT DRESSING INTACT, WOUND VAC IN PLACE, SETTINGS AT 125mm/Hg CONTINUOUS SUCTION WITH 50ML SEROSANGUINEOUS FLUID DRAINAGE. BREATHING EVEN AND NON LABORED, NO SOB NOTED. CALL LIGHT WITHIN REACH, WILL CONT TO MONITOR.
[2016-11-04 08:00] VITALS: BP 140/79
[2016-11-04] MEDS: ZINC SULFATE 220 MG CAPSULE PO SCH (08:29)
[2016-11-04] MEDS: ATENOLOL 25 MG TABLET PO SCH (08:30)
[2016-11-04] MEDS: ALLOPURINOL 100 MG TABLET PO SCH (08:30)
[2016-11-04] MEDS: ASPIRIN 81 MG TAB.CHEW PO SCH (08:30)
[2016-11-04] MEDS: ASCORBIC ACID 500 MG TABLET PO SCH ×2 (08:30→15:56)
[2016-11-04] MEDS: ACIDOPHILUS/BULGARICUS 1 EACH TAB.CHEW PO SCH ×3 (08:30→15:56)
[2016-11-04] MEDS: PANTOPRAZOLE 40 MG TABLET.DR PO SCH (08:30)
[2016-11-04] MEDS: INSULIN ASPART NOVOLOG 100 UNIT/ML CARTRIDGE SQ SCH ×3 (08:33→17:53)
[2016-11-04] MEDS: DAKINS QUARTER STRENGTH (0.125%) 480 ML BOTTLE TOP SCH ×2 (09:00→15:56)
--- NOTE | 2016-11-04 10:03 | NUR ---
DAKINS SOLN NON ADMINISTERED. WOUND LEFT FOOT, WOUND VAC IN PLACE, DRESSING INTACT.
--- NOTE | 2016-11-04 12:10 | NUR ---
BS 312MG/DL. GIVEN 12 UNITS INSULIN REGULAR SQ PER [employer] COVERAGE.
[2016-11-04] MEDS ORDERED: VANCOMYCIN 1 GM in IV D5W 250 ML IV SCH (14:00)
[2016-11-04 16:00] VITALS: BP 152/86
[2016-11-04 16:08] VITALS: BP 152/86
--- NOTE | 2016-11-04 17:08 | NUR ---
BS 268MG/DL. GIVEN 9 UNITS INSULIN REGULAR SQ PER ISS COVERAGE.
[2016-11-04] MEDS: VANCOMYCIN 0.75 GM in IV D5W 250 ML IV SCH (17:20)
--- NOTE | 2016-11-04 17:54 | NUR ---
DINNER SERVED, INSULIN NOVOLOG 5 UNITS SCHEDULE GIVEN WITH MEALS.
--- NOTE | 2016-11-04 18:01 | NUR ---
MS RN CLOSING NOTES PATIENT IN BED, NOT IN DISTRESS. ON ANTIBIOTIC WITH NO ADVERSE SIDE EFFECT, AFEBRILE. BLOOD SUGAR MONITORED. LEFT THIGH DRESSING INTACT, LEFT FOOT WITH WOUND VAC AT 125mm/Hg CONTINUOUS SUCTION, WITH SEROSANGUINEOUS FLUID DRAINAGE. NWB LEFT FOOT, PATIENT IS AWARE. NO C/O PAIN AT THIS TIME, ON PAIN MANAGEMENT. CALL LIGHT WITHIN REACH. LAB IN AM ORDERED. WILL ENDORSE TO DYED YARN OPERATOR RN FOR CONTINUITY OF CARE.
--- NOTE | 2016-11-04 19:30 | NUR ---
MS RN INITIAL NOTES: RECEIVED REPORT FROM KYUNG NUNEZ. PT ON BED, AWAKE, A/O X3 ON ROOM AIR RESPIRATION EVEN AND UNLABORED. C/O LEFT FOOT AND LEG PAIN 8/ REQUESTING FOR MORPHINE. S/P LEFT FOOT WOUND CLOSURE AND SKIN GRAFT ON LEFT THIGH, WITH WOUND VAC IN PLACED AT 125MMHG, WITH BLOODY DRAINAGE IN THE COLLECTION CHAMBER. LEFT FOOT AND LEG DRESSING C/D/I, NO ACTIVE BLEEDING NOTED, NO S/S OF INFECTION. BLE OFFLOADED ON PILLOWS. HAS BRENDA PICC LINE WITH DOUBLE LUMEN, HOWEVER BOTH HAS NO BLOOD RETURN, BUT ABLE TO FLUSH, ON HL. SAFETY PRECAUTION FOR FALL INITIATED CALL LIGHT IN REACH, WILL CONTINUE TO MONITOR
[2016-11-04 20:00] VITALS: BP 140/72
--- NOTE | 2016-11-04 20:13 | NUR ---
MS RN NOTES: PT C/O 03/08 PAIN ON HIS LEFT FOOT AND LEG, REQUESTING FOR MORPHINE, PRN MORPHINE 1MG IVP ADMINISTERED TO THE PT AT THIS TIME, EDUCATE PT REGARDING MEDICATION PAT EFFECT, WILL CONTINUE TO MONITOR AND REASSESS
--- NOTE | 2016-11-04 21:00 | NUR ---
MS RN NOTES: PT REFUSED SCD, EDUCATION PROVIDED TO THE PT
[2016-11-04] MEDS: SIMVASTATIN 20 MG TABLET PO SCH (22:01)
[2016-11-04] MEDS: *INSULIN REGULAR(HUMULIN R)HUM 100 UNIT/ML VIAL SQ PRN (22:02)
[2016-11-04] MEDS: INSULIN DETEMIR 100 UNIT/ML CARTRIDGE SQ SCH (22:03)
--- NOTE | 2016-11-04 22:03 | NUR ---
ms rn notes: pt upset because he stated he's getting his norco later than the scheduled time, informed pt that the said medication isnt as scheduled, its only given prn, meaning as needed, and that pt needs to call when he needs it.
--- NOTE | 2016-11-04 22:04 | NUR ---
MS RN NOTES: PT C/O PAIN ON HIS LEFT FOOT, NORCO 10/325 MG TAB PO ADMINISTERED TO THE PT, WILL CONTINUE TO MONITOR AND REASSESS
[2016-11-05] MEDS: MORPHINE SULFATE INJ 2 MG/ML DISP.SYRIN IV PRN ×6 (00:04→20:30)
--- NOTE | 2016-11-05 00:05 | NUR ---
MS RN NOTES: PT C/O PAIN ON HIS LEFT SHOULDER FOOT AND LEG, 04/08 REQUESTING FOR MORPHINE, PRN MORPHINE 1MG IVP ADMINISTERED TO THE PT AT THIS TIME. WILL CONTINUE TO MONITOR AND REASSESS
[2016-11-05 02:20] VITALS: BP 142/86
[2016-11-05] MEDS: HYDROCODONE/APAP 10/325MG 1 EA TABLET PO PRN ×6 (02:23→23:04)
--- NOTE | 2016-11-05 02:24 | NUR ---
MS RN NOTES: PT C/O PAIN ON LEFT LEG AND THIGH 02/05 REQUESTING FOR NORCO, PRN NORCO 10/325 MG TAB PO ADMINISTERED TO THE PT AT THIS TIME, WILL CONTINUE TO MONITOR AND REASSESS
[2016-11-05 04:00] VITALS: BP 136/58
--- NOTE | 2016-11-05 04:14 | NUR ---
MS RN NOTES: PT CALLED C/O 03/08 PAIN ON HIS LEFT LEG AND THIGH REQUESTING FOR MORPHINE, PRN MORPHINE 1MG IVP ADMINISTERED TO THE PT AT THIS TIME, WILL CONTINUE TO MONITOR AND REASSESS
[2016-11-05] MEDS: BLOOD SUGAR DIAGNOSTIC 1 EACH STRIP VI SCH ×4 (06:40→21:20)
[2016-11-05] MEDS: INSULIN REGULAR, HUMAN 100 UNIT/ML 3 ML VIAL SQ PRN ×3 (06:42→17:21)
--- NOTE | 2016-11-05 06:43 | NUR ---
MS RN NOTES: CHECKED BLOOD SUGAR AND REVEAL 302, 12 UNITS OF INSULIN GIVEN PER SLIDING SCALE, AND ALSO PT C/O 6/10 PAIN ON HER LEFT FOOT AND THIGH REQUESTING FOR NORCO, PRN NORCO 10/325 MG TAB PO ADMINISTERED TO THE PT AT THIS TIME, WILL CONTINUE TO MONITOR AND REASSESS
[2016-11-05 06:46] LABS: BASOPHILS % (AUTO) 0.2 % (0.0-2.0); EOSINOPHILS # (AUTO) 0.4 /CMM (0.0-0.7); EOSINOPHILS % (AUTO) 3.1 % (0.0-6.0); HEMATOCRIT 39 % (39-51); HEMOGLOBIN 11.8 g/dL (13.5-17.5); LYMPHOCYTES # (AUTO) 2.4 /CMM (0.8-4.8); LYMPHOCYTES % (AUTO) 17.9 % (20.0-44.0); MEAN CORPUSCULAR HEMOGLOBIN 22 PG (26.0-33.0); MEAN CORPUSCULAR HGB CONC 31 g/dl (31.0-36.0); MEAN CORPUSCULAR VOLUME 71 fL (80-96); MONOCYTES # (AUTO) 1.1 /CMM (0.1-1.30); NEUTROPHILS # (AUTO) 9.5 /CMM (1.8-8.9); NEUTROPHILS % (AUTO) 70.8 % (43.0-81.0); PLATELET COUNT (AUTO) 372 /CMM (150-450); RDW COEFFICIENT OF VARIATION 18.4 (11.5-15.0); RED BLOOD CELL COUNT(AUTO) 5.42 MIL/uL (4.5-6.0); WHITE BLOOD COUNT (AUTO) 13.4 K/uL (4.3-11.0)
--- NOTE | 2016-11-05 07:02 | NUR ---
MS RN CLOSING NOTES: Pt on bed, awake, pain medication given not too long ago. on room air, respiration even and unlabored. not in any distress. sonu picc line remains patent an flushing well, on hl, but still no blood return. left leg dressing and left foot dressing remains c/d/i, left foot connected to wound vac at 125mmhg.ble kept offloaded. vs remains stable, needs attended. safety precaution for fall remains engaged, call light in reach. will endorse to day rn for venessa.
[2016-11-05 07:14] LABS: CALCIUM, SERUM 9.3 mg/dL (8.5-10.1); CREATININE 1.3 mg/dL (0.6-1.3); MAGNESIUM 1.5 mg/dL (1.8-2.4); PHOSPHORUS 3.4 mg/dL (2.5-4.9); POTASSIUM 5.2 mmol/L (3.5-5.1)
--- NOTE | 2016-11-05 07:15 | NUR ---
MS RN OPENING RECEIVED PATIENT A/OX4 PATIENT STATES HIS PAIN IS BETTER FROM THE NORCO GIVEN THIS AM. PATIENT ALREADY REQUESTING PAIN MEDICATION MORPHINE AGAIN AFTER 8. PATIENT AWARE WHEN DUE AGAIN AND WILL NEED TO ASK. PATIENT DENIES SOB, DIFFICULTY BREATHING AND DRESSINGS INTACT AND CLEAN; PER MD DO NOT CHANGE DRESSING. PATIENT EDUCATED AGAIN ON NON WEIGHT BEARING STATUS ON LOWER EXTREMITY. PATIENT STATES NO OTHER NEEDS AT THIS TIME AND IN POSITION OF COMFORT. PATIENT WITH CALL LIGHT IN REACH, BED LOWERED AND LOCKED, RAILS UPX3 FOR SAFETY AND WILL ROUND Q2H OR LESS PER NEEDS
[2016-11-05 08:00] VITALS: BP_SYST 135; BP_SYST 161; BP_DIAS 65; BP_DIAS 84
[2016-11-05] MEDS: ACIDOPHILUS/BULGARICUS 1 EACH TAB.CHEW PO SCH ×3 (08:23→16:26)
[2016-11-05] MEDS: PANTOPRAZOLE 40 MG TABLET.DR PO SCH (08:23)
[2016-11-05] MEDS: ASCORBIC ACID 500 MG TABLET PO SCH ×2 (08:23→16:26)
[2016-11-05] MEDS: ALLOPURINOL 100 MG TABLET PO SCH (08:23)
[2016-11-05] MEDS: ASPIRIN 81 MG TAB.CHEW PO SCH (08:23)
[2016-11-05] MEDS: ZINC SULFATE 220 MG CAPSULE PO SCH (08:23)
[2016-11-05] MEDS: DAKINS QUARTER STRENGTH (0.125%) 480 ML BOTTLE TOP SCH ×2 (08:24→16:57)
[2016-11-05] MEDS: ATENOLOL 25 MG TABLET PO SCH (08:26)
[2016-11-05] MEDS: INSULIN ASPART NOVOLOG 100 UNIT/ML CARTRIDGE SQ SCH ×3 (08:27→17:19)
[2016-11-05] MEDS: Z GUARD REMEDY 2 OZ OINT TP PRN ×2 (08:28→12:02)
--- NOTE | 2016-11-05 10:00 | NUR ---
MS RN NOTES DR DONIS AWARE HIGH K. NO ORDERS FROM
--- NOTE | 2016-11-05 11:05 | NUR ---
MS RN NOTES NOTIFIED MD OF PATIENT PICC LINE AND PER MD OK TO HAVE IT LOOKED AT AND A NEW REINSERTED IF NEEDED
[2016-11-05] MEDS ORDERED: SECONDARY IV SET 1 EA INFUS.SET MC ONE (11:43)
[2016-11-05] MEDS: Magnesium 1GM/D5W 100ML PREMIX 100 ML IV SCH ×2 (11:56→13:28)
[2016-11-05 16:00] VITALS: BP 135/69
[2016-11-05] MEDS: VANCOMYCIN 0.75 GM in IV D5W 250 ML IV SCH (18:30)
[2016-11-05 20:00] VITALS: BP 143/73
[2016-11-05 20:01] VITALS: BP 143/73
[2016-11-05] MEDS: SIMVASTATIN 20 MG TABLET PO SCH (21:20)
[2016-11-05] MEDS: INSULIN DETEMIR 100 UNIT/ML CARTRIDGE SQ SCH (21:28)
[2016-11-05] MEDS: *INSULIN REGULAR(HUMULIN R)HUM 100 UNIT/ML VIAL SQ PRN (21:28)
[2016-11-06] MEDS: MORPHINE SULFATE INJ 2 MG/ML DISP.SYRIN IV PRN ×5 (03:59→20:58)
[2016-11-06] MEDS: HYDROCODONE/APAP 10/325MG 1 EA TABLET PO PRN ×4 (06:04→18:39)
[2016-11-06] MEDS: BLOOD SUGAR DIAGNOSTIC 1 EACH STRIP VI SCH ×4 (06:30→21:37)
[2016-11-06] MEDS: PANTOPRAZOLE 40 MG TABLET.DR PO SCH (06:30)
[2016-11-06] MEDS: Z GUARD REMEDY 2 OZ OINT TP PRN (06:33)
[2016-11-06] MEDS: INSULIN REGULAR, HUMAN 100 UNIT/ML 3 ML VIAL SQ PRN ×3 (06:33→17:33)
--- NOTE | 2016-11-06 06:54 | NUR ---
MS RN CLOSING PATIENT STABLE NO COMPLICATIONS NO CHANGES. PAIN MANAGED WITH MEDICATIONS AND NON PHARM MEASURES. EDUCATED PATIENT ON NO WEIGHT ON LOWER EXTREMITY AND ELEVATION AND OFFLOADING. ALL DUE MEDS GIVEN AND ALL NEEDS MET.CALL LIGHT IN REACH, BED LOWERED AND LOCKED, RAILS UPX3 FOR SAFETY AND WILL ENDORSE CARE TO RN
[2016-11-06 07:38] LABS: CALCIUM, SERUM 9.3 mg/dL (8.5-10.1); CREATININE 1.1 mg/dL (0.6-1.3); MAGNESIUM 1.8 mg/dL (1.8-2.4); POTASSIUM 5.1 mmol/L (3.5-5.1)
[2016-11-06 08:00] VITALS: BP 140/78
[2016-11-06] MEDS: ASPIRIN 81 MG TAB.CHEW PO SCH (08:02)
[2016-11-06] MEDS: ACIDOPHILUS/BULGARICUS 1 EACH TAB.CHEW PO SCH ×3 (08:03→16:44)
[2016-11-06] MEDS: ALLOPURINOL 100 MG TABLET PO SCH (08:03)
[2016-11-06] MEDS: ASCORBIC ACID 500 MG TABLET PO SCH ×2 (08:03→16:44)
[2016-11-06] MEDS: ATENOLOL 25 MG TABLET PO SCH (08:04)
[2016-11-06] MEDS: ZINC SULFATE 220 MG CAPSULE PO SCH (08:04)
[2016-11-06] MEDS: DAKINS QUARTER STRENGTH (0.125%) 480 ML BOTTLE TOP SCH ×2 (08:04→16:45)
[2016-11-06] MEDS: INSULIN ASPART NOVOLOG 100 UNIT/ML CARTRIDGE SQ SCH ×3 (08:06→17:33)
--- NOTE | 2016-11-06 09:07 | NUR ---
MS/RN Medications Morning medicatins administered as ordered.
--- NOTE | 2016-11-06 10:00 | NUR ---
MS/RN S/B Dr Colmenares Seen by Dr Colmenares - labs ordered for tomorrow. Dr Colmenares asked if possible to change pain medications as patient is requiring medication to be given every 2 hours, making notes of when medication is due and setting alarm to wake himself in order as not to miss dose. Per MD, no changes to medications at this time.
--- NOTE | 2016-11-06 11:30 | NUR ---
MS/partition setter drainage Wound to left foot noted to be draining through original post op dressing. Wound reinforced, will monitor for further drainage.
--- NOTE | 2016-11-06 12:00 | NUR ---
MS/RN Blood sugar Blood sugar at noon 317 - 12 units regular insulin administered as per sliding scale.
[2016-11-06 16:00] VITALS: BP 111/60
--- NOTE | 2016-11-06 17:15 | NUR ---
MS/RN Blood sugar Blood sugar this evening 311 - 12 units regular insulin administered.
--- NOTE | 2016-11-06 18:57 | NUR ---
MS/RN End note No changes at this time, will endorse to gambling supervisor.
--- NOTE | 2016-11-06 19:35 | NUR ---
MSRN FULLY AWAKE, RESTING QUIETLY. LEFT FOOT DRESSING D/I CONNECTED TO WOUND VAC. PER REPORT DRESSING TO BE CHANGE IN AM BY MD. ALL NEEDS ATTENDED, CONTINUED.
[2016-11-06 20:21] VITALS: BP 141/98
[2016-11-06] MEDS: SIMVASTATIN 20 MG TABLET PO SCH (20:58)
--- NOTE | 2016-11-06 21:00 | NUR ---
MSRN INCREASING PAIN ON LEFT FOOT LEVEL 7 TO 8 , MORPHINE 1MG IVP GIVEN SLOWLY. NO OTHER NEEDS FOR NOW.
[2016-11-06] MEDS: INSULIN DETEMIR 100 UNIT/ML CARTRIDGE SQ SCH (21:56)
[2016-11-06] MEDS: *INSULIN REGULAR(HUMULIN R)HUM 100 UNIT/ML VIAL SQ PRN (21:58)
--- NOTE | 2016-11-06 22:00 | NUR ---
MSRN BS WAS 301, COVERED WITH REGULAR INSULIN AND LEVIMIR ORDERED. SNACKS PROVIDED. CAME BROUGHT FOOD.
--- NOTE | 2016-11-07 02:00 | NUR ---
MSRN MORPHINE 1MG IVP ADMINISTERED FOR LEFT FOOT PAIN. BEDREST EMPHASIZED. KEPT COMFORTABLE.
[2016-11-07] MEDS: MORPHINE SULFATE INJ 2 MG/ML DISP.SYRIN IV PRN ×5 (02:03→20:49)
[2016-11-07] MEDS: HYDROCODONE/APAP 10/325MG 1 EA TABLET PO PRN ×3 (04:37→20:02)
--- NOTE | 2016-11-07 04:40 | NUR ---
MSRN LEFT FOOT MODERATE PAIN, NORCO 1 TAB PO ADMINISTERED.
[2016-11-07] MEDS: BLOOD SUGAR DIAGNOSTIC 1 EACH STRIP VI SCH ×3 (06:34→17:10)
[2016-11-07] MEDS: INSULIN REGULAR, HUMAN 100 UNIT/ML 3 ML VIAL SQ PRN ×3 (06:45→17:13)
--- NOTE | 2016-11-07 06:48 | NUR ---
MSRN BS 389, COVERED WITH 15 UNITS REG INSULIN SQ PER SLIDING SCALE..
[2016-11-07 07:15] LABS: CALCIUM, SERUM 8.9 mg/dL (8.5-10.1); CREATININE 1.3 mg/dL (0.6-1.3); POTASSIUM 4.9 mmol/L (3.5-5.1)
[2016-11-07 08:00] VITALS: BP 152/71
--- NOTE | 2016-11-07 08:00 | NUR ---
MS RN NOTES PATIENT IN BED RESTING NO SOB OR ACUTE DISTRESS NOTED. WOUND VAC INTACT PATENT AT 125 CONTINUES PRESSURE. PICC LINE ON RIGHT UPPER ARM INTACT PATENT. CALL LIGHT WITHIN REACH. BED IN LOW LOCKED POSITION.
[2016-11-07] MEDS: ZINC SULFATE 220 MG CAPSULE PO SCH (08:19)
[2016-11-07] MEDS: ACIDOPHILUS/BULGARICUS 1 EACH TAB.CHEW PO SCH ×3 (08:19→17:11)
[2016-11-07] MEDS: PANTOPRAZOLE 40 MG TABLET.DR PO SCH (08:19)
[2016-11-07] MEDS: ASCORBIC ACID 500 MG TABLET PO SCH ×2 (08:19→17:12)
[2016-11-07] MEDS: ATENOLOL 25 MG TABLET PO SCH (08:20)
[2016-11-07] MEDS: ASPIRIN 81 MG TAB.CHEW PO SCH (08:20)
[2016-11-07] MEDS: ALLOPURINOL 100 MG TABLET PO SCH (08:20)
[2016-11-07] MEDS: INSULIN ASPART NOVOLOG 100 UNIT/ML CARTRIDGE SQ SCH ×3 (08:31→17:12)
[2016-11-07] MEDS: DAKINS QUARTER STRENGTH (0.125%) 480 ML BOTTLE TOP SCH ×2 (09:00→17:00)
--- NOTE | 2016-11-07 11:00 | NUR ---
MS RN NOTES PATIENT SEEN AND EVALUATED BY DR. LEHMAN NOTIFIED OF INCREASED BS LEVELS ORDERERS RECEIVED FOR INCREASED INSULIN, NOTED AND CARRIED OUT.
--- NOTE | 2016-11-07 14:00 | NUR ---
MS RN NOTES PATIENT SEEN AND EXAMINED BY DR. FLANAGAN WOUND VAC REMOVED DRESSINGS CHANGED. ORDERS NOTED AND CARRIED OUT. WOUND DRESSING NOT TO BE CHANGED ONLY BY SURGEON.
[2016-11-07 16:00] VITALS: BP 156/81
--- NOTE | 2016-11-07 18:53 | NUR ---
MS RN NOTES PATIENT IN BED RESTING NO SOB OR ACUTE DISTRESS NOTED. DRESSING INTACT PATENT. ALL DUE MEDICATIONS GIVEN. ALL NEEDS MET. REPORT GIVEN FOR DISCHARGE TO [place] RN SUPERVISOR MAIL CARRIERS. WILL ENDORSE TO PM SHIFT MILA. AWAITING FOR TRANSPORTATION FOR FAST [employer]OD CREW MEMBER.
--- NOTE | 2016-11-07 20:03 | NUR ---
MSRN LEFT FOOOT PAIN SCALE OF 6.NORCO 1 TAB PO ADMINISTERED. FOR DISCHARGE TONIGHT, WAITING FOR AMBULANCE.FOOT DRESSING REMAINS DRYAND INTACT
[2016-11-07] MEDS: SIMVASTATIN 20 MG TABLET PO SCH (20:45)
--- NOTE | 2016-11-07 20:50 | NUR ---
MSRN NO RELIEF FROM NORCO, WANTED MORPHINE 1MG IVP.ADMINISTERD. PAIN MGT REVIEWED WITH PATIENT. APPEARS TO UNDERSTAND.
--- NOTE | 2016-11-07 21:41 | NUR ---
MSRN AMBULANCE ARRIVED, REPORT GIVEN. PER AMBULANCE WANTS LATEST ACCUCHECK, PATIENT JUST HAD 2 CARTS OF APPLE JUICE AND FINGER STICK WILL BE HIGH BY NOW. RECHECK WAS 337 SPOT CHECK. HAD INSULIN COVERAGE EARLIER. ID BAND TAKEN OFF.
--- NOTE | 2016-11-07 21:45 | NUR ---
MSRN DISCHARGED VIA AMBULANCE, WITH ALL PERSONAL BELONGINGS IN SATISFACTORY CONDITION. RELIEF OF PAIN FROM MORPHINE PRIOR TO DISCHARGE.
[2016-11-07] MEDS ORDERED: INSULIN DETEMIR 100 UNIT/ML CARTRIDGE SQ SCH (22:00)
== END 2016-11-07 21:45 | DRG 463 ==
LOC: ER 08:27 → MEDSG2 10:32 → WOUND2 11-06 09:39
PROVIDERS: ADMIT Internal Medicine; ATTEND Internal Medicine
PROC: 0JBR0ZZ Excision of Left Foot Subcutaneous Tissue and Fascia, Open Approach (ICD-10-PCS; 2016-11-02)
PROC: 0HBJXZZ Excision of Left Upper Leg Skin, External Approach (ICD-10-PCS; 2016-11-02)
PROC: 0HRNX74 Replacement of Left Foot Skin with Autologous Tissue Substitute, Partial Thickness, External Approach (ICD-10-PCS; principal; 2016-11-02 07:30)
DX: T87.54 Necrosis of amputation stump, left lower extremity (principal); N17.0 Acute kidney failure with tubular necrosis; L03.116 Cellulitis of left lower limb; M86.8X7 Other osteomyelitis, ankle and foot; L97.423 Non-pressure chronic ulcer of left heel and midfoot with necrosis of muscle; E11.621 Type 2 diabetes mellitus with foot ulcer; E11.21 Type 2 diabetes mellitus with diabetic nephropathy; E11.22 Type 2 diabetes mellitus with diabetic chronic kidney disease; E11.40 Type 2 diabetes mellitus with diabetic neuropathy, unspecified; E11.65 Type 2 diabetes mellitus with hyperglycemia; E78.5 Hyperlipidemia, unspecified; I12.9 Hypertensive chronic kidney disease with stage 1 through stage 4 chronic kidney disease, or unspecified chronic kidney disease; N18.3 Chronic kidney disease, stage 3 (moderate); K21.9 Gastro-esophageal reflux disease without esophagitis; N20.0 Calculus of kidney; Z79.4 Long term (current) use of insulin; Z87.891 Personal history of nicotine dependence; Z91.19 Patient's noncompliance with other medical treatment and regimen; D64.9 Anemia, unspecified; E66.01 Morbid (severe) obesity due to excess calories; Z68.27 Body mass index [BMI] 27.0-27.9, adult; E11.69 Type 2 diabetes mellitus with other specified complication; Y83.9 Surgical procedure, unspecified as the cause of abnormal reaction of the patient, or of later complication, without mention of misadventure at the time of the procedure; Y92.009 Unspecified place in unspecified non-institutional (private) residence as the place of occurrence of the external cause; Z85.46 Personal history of malignant neoplasm of prostate; Z86.14 Personal history of Methicillin resistant Staphylococcus aureus infection; N40.0 Benign prostatic hyperplasia without lower urinary tract symptoms
CPT/HCPCS: 36415; 71010-TC; 80048-TC; 80076-TC; 80202-TC; 82962-TC; 83735-TC; 84100-TC; 85025-TC; 85730-TC; 86850-TC; 87081-TC; A4606; A6253; A6402; A6403; J1815; J2001; J2270; J2704; J3010; J3370; J3475; J3490; J7030; J7060; Z7610

== ENCOUNTER 2016-12-11 10:20 | Outpatient (CLI) | payer MEDICARE, OTHER ==
[~2016-12-11 10:20] MED LIST changes: -INSU100I19 SQ; +INSU100V11 SQ; +INSU100V7 SQ; +OMEP-99 PO; -PANT40TA4 PO; +SODI473S8 MC
== END 2016-12-11 23:59 | disposition home health service (06) ==
LOC: WOU 10:20
PROVIDERS: ATTEND Podiatrist Foot & Ankle Surgery
DX: T86.821 Skin graft (allograft) (autograft) failure (principal); E11.621 Type 2 diabetes mellitus with foot ulcer; L97.524 Non-pressure chronic ulcer of other part of left foot with necrosis of bone; E11.42 Type 2 diabetes mellitus with diabetic polyneuropathy; Z91.19 Patient's noncompliance with other medical treatment and regimen; Z87.891 Personal history of nicotine dependence
CPT/HCPCS: 11044; 11047; A6253; A6402

== ENCOUNTER 2016-12-14 11:52 | Outpatient (CLI) | payer MEDICARE, OTHER | END 2016-12-14 23:59 | disposition home health service (06) | LOC: WOU 11:52 | PROVIDERS: ATTEND Podiatrist Foot & Ankle Surgery | DX: T86.821 Skin graft (allograft) (autograft) failure (principal); Z91.19 Patient's noncompliance with other medical treatment and regimen; E11.621 Type 2 diabetes mellitus with foot ulcer; L97.524 Non-pressure chronic ulcer of other part of left foot with necrosis of bone; E11.42 Type 2 diabetes mellitus with diabetic polyneuropathy; Z89.422 Acquired absence of other left toe(s); Z87.891 Personal history of nicotine dependence | CPT/HCPCS: 11044; 11047; A6253; A6402 ==

== ENCOUNTER 2016-12-18 11:10 | Outpatient (CLI) | payer MEDICARE, OTHER | END 2016-12-18 23:59 | disposition home health service (06) | LOC: WOU 11:10 | PROVIDERS: ATTEND Podiatrist Foot & Ankle Surgery | DX: T86.821 Skin graft (allograft) (autograft) failure (principal); E11.621 Type 2 diabetes mellitus with foot ulcer; L97.524 Non-pressure chronic ulcer of other part of left foot with necrosis of bone; Z89.422 Acquired absence of other left toe(s); E11.42 Type 2 diabetes mellitus with diabetic polyneuropathy; Z91.19 Patient's noncompliance with other medical treatment and regimen; Z87.891 Personal history of nicotine dependence | CPT/HCPCS: 11042; 11045; A6253; A6402 ==

== ENCOUNTER 2016-12-21 10:51 | Outpatient (CLI) | payer MEDICARE, OTHER | END 2016-12-21 23:59 | disposition home health service (06) | LOC: WOU 10:51 | PROVIDERS: ATTEND Podiatrist Foot & Ankle Surgery | DX: E11.621 Type 2 diabetes mellitus with foot ulcer (principal); L97.523 Non-pressure chronic ulcer of other part of left foot with necrosis of muscle; Z89.422 Acquired absence of other left toe(s); E11.42 Type 2 diabetes mellitus with diabetic polyneuropathy; Z91.19 Patient's noncompliance with other medical treatment and regimen; Z87.891 Personal history of nicotine dependence; T86.821 Skin graft (allograft) (autograft) failure; Z79.4 Long term (current) use of insulin; Z79.84 Long term (current) use of oral hypoglycemic drugs; Z79.899 Other long term (current) drug therapy | CPT/HCPCS: 11043; A6253; A6402 ==

== ENCOUNTER 2016-12-28 11:00 | Outpatient (CLI) | payer MEDICARE, OTHER | END 2016-12-28 23:59 | disposition home health service (06) | LOC: WOU 11:00 | PROVIDERS: ATTEND Surgery | DX: T86.821 Skin graft (allograft) (autograft) failure (principal); E11.621 Type 2 diabetes mellitus with foot ulcer; L97.523 Non-pressure chronic ulcer of other part of left foot with necrosis of muscle; Z89.422 Acquired absence of other left toe(s); T87.81 Dehiscence of amputation stump; E11.42 Type 2 diabetes mellitus with diabetic polyneuropathy; Z87.891 Personal history of nicotine dependence | CPT/HCPCS: 11043; 11046; A6253; A6402 ==

== ENCOUNTER 2017-01-08 11:14 | Outpatient (CLI) | payer MEDICARE, OTHER | END 2017-01-08 23:59 | disposition home health service (06) | LOC: WOU 11:14 | PROVIDERS: ATTEND Podiatrist Foot & Ankle Surgery | DX: E11.621 Type 2 diabetes mellitus with foot ulcer (principal); L97.523 Non-pressure chronic ulcer of other part of left foot with necrosis of muscle; E11.42 Type 2 diabetes mellitus with diabetic polyneuropathy; Z89.422 Acquired absence of other left toe(s); Z87.891 Personal history of nicotine dependence; T86.821 Skin graft (allograft) (autograft) failure; Z91.19 Patient's noncompliance with other medical treatment and regimen; Z79.4 Long term (current) use of insulin; Z79.84 Long term (current) use of oral hypoglycemic drugs | CPT/HCPCS: 11043; 11046; A6253; A6402 ==

== ENCOUNTER 2017-01-11 12:15 | Outpatient (CLI) | payer MEDICARE, OTHER | END 2017-01-11 23:59 | disposition home health service (06) | LOC: WOU 12:15 | PROVIDERS: ATTEND Podiatrist Foot & Ankle Surgery | DX: E11.621 Type 2 diabetes mellitus with foot ulcer (principal); L97.523 Non-pressure chronic ulcer of other part of left foot with necrosis of muscle; E11.42 Type 2 diabetes mellitus with diabetic polyneuropathy; Z89.422 Acquired absence of other left toe(s); T86.821 Skin graft (allograft) (autograft) failure; Z91.19 Patient's noncompliance with other medical treatment and regimen; Z87.891 Personal history of nicotine dependence; T87.81 Dehiscence of amputation stump; Z79.84 Long term (current) use of oral hypoglycemic drugs; Z79.4 Long term (current) use of insulin; Z79.82 Long term (current) use of aspirin | CPT/HCPCS: 11042; 11045; A6253; A6402 ==

== ENCOUNTER 2017-01-15 10:27 | Outpatient (CLI) | payer MEDICARE, OTHER | END 2017-01-15 23:59 | disposition home health service (06) | LOC: WOU 10:27 | PROVIDERS: ATTEND Podiatrist Foot & Ankle Surgery | DX: E11.621 Type 2 diabetes mellitus with foot ulcer (principal); L97.523 Non-pressure chronic ulcer of other part of left foot with necrosis of muscle; E11.42 Type 2 diabetes mellitus with diabetic polyneuropathy; Z89.422 Acquired absence of other left toe(s); T86.821 Skin graft (allograft) (autograft) failure; Z91.19 Patient's noncompliance with other medical treatment and regimen; Z87.891 Personal history of nicotine dependence; Z79.84 Long term (current) use of oral hypoglycemic drugs; Z79.4 Long term (current) use of insulin; Z79.899 Other long term (current) drug therapy | CPT/HCPCS: 11042; 11045; A6253 ==

== ENCOUNTER 2017-01-18 11:06 | Outpatient (CLI) | payer MEDICARE, OTHER | END 2017-01-18 23:59 | disposition home health service (06) | LOC: WOU 11:06 | PROVIDERS: ATTEND Podiatrist Foot & Ankle Surgery | DX: E11.621 Type 2 diabetes mellitus with foot ulcer (principal); L97.523 Non-pressure chronic ulcer of other part of left foot with necrosis of muscle; Z89.422 Acquired absence of other left toe(s); E11.42 Type 2 diabetes mellitus with diabetic polyneuropathy; T86.821 Skin graft (allograft) (autograft) failure; Z91.19 Patient's noncompliance with other medical treatment and regimen; Z87.891 Personal history of nicotine dependence; Z79.84 Long term (current) use of oral hypoglycemic drugs; Z79.4 Long term (current) use of insulin; Z79.899 Other long term (current) drug therapy | CPT/HCPCS: 11043; A6253; A6402; Z7610 ==

== ENCOUNTER 2017-01-22 11:04 | Outpatient (CLI) | payer MEDICARE, OTHER | END 2017-01-22 23:59 | disposition home health service (06) | LOC: WOU 11:04 | PROVIDERS: ATTEND Podiatrist Foot & Ankle Surgery | DX: E11.621 Type 2 diabetes mellitus with foot ulcer (principal); L97.523 Non-pressure chronic ulcer of other part of left foot with necrosis of muscle; T86.821 Skin graft (allograft) (autograft) failure; E11.42 Type 2 diabetes mellitus with diabetic polyneuropathy; Z89.422 Acquired absence of other left toe(s); Z79.84 Long term (current) use of oral hypoglycemic drugs; Z79.4 Long term (current) use of insulin; Z79.899 Other long term (current) drug therapy; Z87.891 Personal history of nicotine dependence | CPT/HCPCS: 11042; 11045; A6253; A6402 ==

== ENCOUNTER 2017-01-25 11:00 | Outpatient (CLI) | payer MEDICARE, OTHER | END 2017-01-25 23:59 | disposition home health service (06) | LOC: WOU 11:00 | PROVIDERS: ATTEND Podiatrist Foot & Ankle Surgery | DX: E11.621 Type 2 diabetes mellitus with foot ulcer (principal); L97.523 Non-pressure chronic ulcer of other part of left foot with necrosis of muscle; E11.42 Type 2 diabetes mellitus with diabetic polyneuropathy; T86.821 Skin graft (allograft) (autograft) failure; Z89.422 Acquired absence of other left toe(s); Z87.891 Personal history of nicotine dependence | CPT/HCPCS: 11042; 11045; A6253; A6402 ==

== ENCOUNTER 2017-01-29 12:36 | Outpatient (CLI) | payer MEDICARE, OTHER ==
[2017-01-29 13:37] LABS: ALBUMIN 3.7 g/dL (3.4-5.0)
[2017-01-29 13:40] LABS: PREALBUMIN 29.3 MG/DL (18.0-35.7)
[2017-01-29 14:27] LABS: BASOPHILS % (AUTO) 0.3 % (0.0-2.0); EOSINOPHILS # (AUTO) 0.3 /CMM (0.0-0.7); EOSINOPHILS % (AUTO) 2.9 % (0.0-6.0); HEMOGLOBIN 12.9 g/dL (13.5-17.5); LYMPHOCYTES # (AUTO) 2.4 /CMM (0.8-4.8); LYMPHOCYTES % (AUTO) 21.4 % (20.0-44.0); MEAN CORPUSCULAR HEMOGLOBIN 21 PG (26.0-33.0); MEAN CORPUSCULAR HGB CONC 30 g/dl (31.0-36.0); MEAN CORPUSCULAR VOLUME 70 fL (80-96); MONOCYTES # (AUTO) 0.7 /CMM (0.1-1.30); MONOCYTES % (AUTO) 6.4 % (2.0-12.0); NEUTROPHILS # (AUTO) 7.7 /CMM (1.8-8.9); PLATELET COUNT (AUTO) 331 /CMM (150-450); RDW COEFFICIENT OF VARIATION 20.3 (11.5-15.0); RED BLOOD CELL COUNT(AUTO) 6.07 MIL/uL (4.5-6.0); WHITE BLOOD COUNT (AUTO) 11.1 K/uL (4.3-11.0)
[2017-01-29 14:31] LABS: HEMATOCRIT 43 % (39-51)
[2017-01-29 15:04] LABS: LYMPHOCYTES % (MANUAL) 22 % (16-48); MONOCYTES % (MANUAL) 8 % (0-11.0); NEUTROPHILS % (MANUAL) 70 (42-76)
== END 2017-01-29 23:59 | disposition home or self-care (01) ==
LOC: LAB 12:36
PROVIDERS: ATTEND Podiatrist Foot & Ankle Surgery
DX: E11.621 Type 2 diabetes mellitus with foot ulcer (principal); L97.529 Non-pressure chronic ulcer of other part of left foot with unspecified severity; I10 Essential (primary) hypertension
CPT/HCPCS: 36415; 82040-TC; 84134-TC; 85025-TC

== ENCOUNTER 2017-01-29 13:00 | Outpatient (CLI) | payer MEDICARE, OTHER | END 2017-01-29 23:59 | disposition home or self-care (01) | LOC: WOU 13:00 | PROVIDERS: ATTEND Surgery | DX: E11.621 Type 2 diabetes mellitus with foot ulcer (principal); L97.522 Non-pressure chronic ulcer of other part of left foot with fat layer exposed; E66.01 Morbid (severe) obesity due to excess calories; Z68.36 Body mass index [BMI] 36.0-36.9, adult; E11.42 Type 2 diabetes mellitus with diabetic polyneuropathy; Z87.891 Personal history of nicotine dependence; H93.19 Tinnitus, unspecified ear; H91.90 Unspecified hearing loss, unspecified ear; E11.69 Type 2 diabetes mellitus with other specified complication; M86.8X7 Other osteomyelitis, ankle and foot; E11.65 Type 2 diabetes mellitus with hyperglycemia; N40.0 Benign prostatic hyperplasia without lower urinary tract symptoms; Z91.19 Patient's noncompliance with other medical treatment and regimen; E11.22 Type 2 diabetes mellitus with diabetic chronic kidney disease; I12.9 Hypertensive chronic kidney disease with stage 1 through stage 4 chronic kidney disease, or unspecified chronic kidney disease; N18.9 Chronic kidney disease, unspecified; Z79.4 Long term (current) use of insulin | CPT/HCPCS: 11042; 11045; 87070; 87075; 87077; 87186 ×3; A6197; A6402; G0463 ==

== ENCOUNTER 2017-02-01 10:49 | Outpatient (CLI) | payer MEDICARE, OTHER | END 2017-02-01 23:59 | disposition home health service (06) | LOC: WOU 10:49 | PROVIDERS: ATTEND Surgery | DX: T87.89 Other complications of amputation stump (principal); E11.621 Type 2 diabetes mellitus with foot ulcer; E11.42 Type 2 diabetes mellitus with diabetic polyneuropathy; Z89.422 Acquired absence of other left toe(s); T86.821 Skin graft (allograft) (autograft) failure; L97.522 Non-pressure chronic ulcer of other part of left foot with fat layer exposed; Z87.891 Personal history of nicotine dependence; Z68.36 Body mass index [BMI] 36.0-36.9, adult | CPT/HCPCS: 11042; 11045; A6197; A6402 ==

== ENCOUNTER 2017-02-05 10:28 | Outpatient (CLI) | payer MEDICARE, OTHER | END 2017-02-05 23:59 | disposition home health service (06) | LOC: WOU 10:28 | PROVIDERS: ATTEND Podiatrist Foot & Ankle Surgery | DX: T86.821 Skin graft (allograft) (autograft) failure (principal); E11.621 Type 2 diabetes mellitus with foot ulcer; L97.523 Non-pressure chronic ulcer of other part of left foot with necrosis of muscle; E11.42 Type 2 diabetes mellitus with diabetic polyneuropathy; Z89.422 Acquired absence of other left toe(s); Z87.891 Personal history of nicotine dependence; T87.89 Other complications of amputation stump; Z68.36 Body mass index [BMI] 36.0-36.9, adult; Z79.84 Long term (current) use of oral hypoglycemic drugs; Z79.899 Other long term (current) drug therapy | CPT/HCPCS: 11042; 11045; A6197; A6402 ==

== ENCOUNTER 2017-02-08 10:57 | Outpatient (CLI) | payer MEDICARE, OTHER | END 2017-02-08 23:59 | disposition home health service (06) | LOC: WOU 10:57 | PROVIDERS: ATTEND Podiatrist Foot & Ankle Surgery | DX: E11.621 Type 2 diabetes mellitus with foot ulcer (principal); L97.522 Non-pressure chronic ulcer of other part of left foot with fat layer exposed; T86.821 Skin graft (allograft) (autograft) failure; E11.42 Type 2 diabetes mellitus with diabetic polyneuropathy; Z89.422 Acquired absence of other left toe(s); Z87.891 Personal history of nicotine dependence; Z68.36 Body mass index [BMI] 36.0-36.9, adult; Z79.84 Long term (current) use of oral hypoglycemic drugs; Z79.4 Long term (current) use of insulin; Z79.899 Other long term (current) drug therapy | CPT/HCPCS: 11042; A6197; A6402 ==

== ENCOUNTER 2017-02-12 10:32 | Outpatient (CLI) | payer MEDICARE, OTHER | END 2017-02-12 23:59 | disposition home health service (06) | LOC: WOU 10:32 | PROVIDERS: ATTEND Podiatrist Foot & Ankle Surgery | DX: E11.621 Type 2 diabetes mellitus with foot ulcer (principal); L97.523 Non-pressure chronic ulcer of other part of left foot with necrosis of muscle; E11.42 Type 2 diabetes mellitus with diabetic polyneuropathy; T86.821 Skin graft (allograft) (autograft) failure; Z89.422 Acquired absence of other left toe(s); Z79.4 Long term (current) use of insulin; Z79.84 Long term (current) use of oral hypoglycemic drugs; Z87.891 Personal history of nicotine dependence; Z89.432 Acquired absence of left foot; Z89.431 Acquired absence of right foot; Z68.36 Body mass index [BMI] 36.0-36.9, adult | CPT/HCPCS: 11042; 11045; A6197; A6402 ==

== ENCOUNTER 2017-02-15 10:55 | Outpatient (CLI) | payer MEDICARE, OTHER | END 2017-02-15 23:59 | disposition home health service (06) | LOC: WOU 10:55 | PROVIDERS: ATTEND Podiatrist Foot & Ankle Surgery | DX: E11.621 Type 2 diabetes mellitus with foot ulcer (principal); L97.523 Non-pressure chronic ulcer of other part of left foot with necrosis of muscle; E11.42 Type 2 diabetes mellitus with diabetic polyneuropathy; T86.821 Skin graft (allograft) (autograft) failure; Z89.422 Acquired absence of other left toe(s); Z87.891 Personal history of nicotine dependence; Z68.36 Body mass index [BMI] 36.0-36.9, adult; H91.90 Unspecified hearing loss, unspecified ear | CPT/HCPCS: 11042; 11045; A6197; A6402 ==

== ENCOUNTER 2017-02-19 10:52 | Outpatient (CLI) | payer MEDICARE, OTHER | END 2017-02-19 23:59 | disposition home health service (06) | LOC: WOU 10:52 | PROVIDERS: ATTEND Podiatrist Foot & Ankle Surgery | DX: E11.621 Type 2 diabetes mellitus with foot ulcer (principal); L97.523 Non-pressure chronic ulcer of other part of left foot with necrosis of muscle; E11.42 Type 2 diabetes mellitus with diabetic polyneuropathy; T86.821 Skin graft (allograft) (autograft) failure; Z89.422 Acquired absence of other left toe(s); Z87.891 Personal history of nicotine dependence; Z79.4 Long term (current) use of insulin; Z79.899 Other long term (current) drug therapy | CPT/HCPCS: 11042; 11045; A6197; A6402 ==

== ENCOUNTER 2017-02-26 11:10 | Outpatient (CLI) | payer MEDICARE, OTHER | END 2017-02-26 23:59 | disposition home health service (06) | LOC: WOU 11:10 | PROVIDERS: ATTEND Podiatrist Foot & Ankle Surgery | DX: E11.621 Type 2 diabetes mellitus with foot ulcer (principal); L97.523 Non-pressure chronic ulcer of other part of left foot with necrosis of muscle; Z89.431 Acquired absence of right foot; Z87.891 Personal history of nicotine dependence; Z68.36 Body mass index [BMI] 36.0-36.9, adult; Z89.422 Acquired absence of other left toe(s); T86.821 Skin graft (allograft) (autograft) failure | CPT/HCPCS: 11042; A6197; A6402 ==

== ENCOUNTER 2017-03-01 11:30 | Outpatient (CLI) | payer MEDICARE, OTHER | END 2017-03-01 23:59 | disposition home health service (06) | LOC: WOU 11:30 | PROVIDERS: ATTEND Podiatrist Foot & Ankle Surgery | DX: E11.621 Type 2 diabetes mellitus with foot ulcer (principal); L97.523 Non-pressure chronic ulcer of other part of left foot with necrosis of muscle; T86.821 Skin graft (allograft) (autograft) failure; E11.42 Type 2 diabetes mellitus with diabetic polyneuropathy; Z87.891 Personal history of nicotine dependence; Z89.432 Acquired absence of left foot; Z89.431 Acquired absence of right foot | CPT/HCPCS: 11042; A6197; A6402 ==

== ENCOUNTER 2017-03-05 10:57 | Outpatient (CLI) | payer MEDICARE, OTHER | END 2017-03-05 23:59 | disposition home health service (06) | LOC: WOU 10:57 | PROVIDERS: ATTEND Podiatrist Foot & Ankle Surgery | DX: E11.621 Type 2 diabetes mellitus with foot ulcer (principal); L97.523 Non-pressure chronic ulcer of other part of left foot with necrosis of muscle; T86.821 Skin graft (allograft) (autograft) failure; E11.42 Type 2 diabetes mellitus with diabetic polyneuropathy; Z89.422 Acquired absence of other left toe(s); Z87.891 Personal history of nicotine dependence; Z89.431 Acquired absence of right foot; Z79.4 Long term (current) use of insulin; Z79.84 Long term (current) use of oral hypoglycemic drugs | CPT/HCPCS: 11042; A6197; A6402 ==

== ENCOUNTER 2017-03-08 11:14 | Outpatient (CLI) | payer MEDICARE, OTHER | END 2017-03-08 23:59 | disposition home health service (06) | LOC: WOU 11:14 | PROVIDERS: ATTEND Podiatrist Foot & Ankle Surgery | DX: E11.621 Type 2 diabetes mellitus with foot ulcer (principal); L97.523 Non-pressure chronic ulcer of other part of left foot with necrosis of muscle; T86.821 Skin graft (allograft) (autograft) failure; E11.42 Type 2 diabetes mellitus with diabetic polyneuropathy; Z89.422 Acquired absence of other left toe(s); Z87.891 Personal history of nicotine dependence; T87.89 Other complications of amputation stump; Z79.4 Long term (current) use of insulin; Z79.84 Long term (current) use of oral hypoglycemic drugs; Z79.82 Long term (current) use of aspirin | CPT/HCPCS: 11042; A6197; A6402 ==

== ENCOUNTER 2017-03-12 11:11 | Outpatient (CLI) | payer MEDICARE, OTHER | END 2017-03-12 23:59 | disposition home health service (06) | LOC: WOU 11:11 | PROVIDERS: ATTEND Podiatrist Foot & Ankle Surgery | DX: E11.621 Type 2 diabetes mellitus with foot ulcer (principal); E11.42 Type 2 diabetes mellitus with diabetic polyneuropathy; T87.81 Dehiscence of amputation stump; L97.523 Non-pressure chronic ulcer of other part of left foot with necrosis of muscle; Z89.422 Acquired absence of other left toe(s) | CPT/HCPCS: 11042; A6253; A6402 ==

== ENCOUNTER 2017-03-15 10:40 | Outpatient (CLI) | payer MEDICARE, OTHER | END 2017-03-15 23:59 | disposition home health service (06) | LOC: WOU 10:40 | PROVIDERS: ATTEND Podiatrist Foot & Ankle Surgery | DX: E11.621 Type 2 diabetes mellitus with foot ulcer (principal); L97.523 Non-pressure chronic ulcer of other part of left foot with necrosis of muscle; T86.821 Skin graft (allograft) (autograft) failure; E11.42 Type 2 diabetes mellitus with diabetic polyneuropathy; Z89.422 Acquired absence of other left toe(s); Z87.891 Personal history of nicotine dependence; Z89.432 Acquired absence of left foot; Z79.84 Long term (current) use of oral hypoglycemic drugs; Z79.4 Long term (current) use of insulin; Z79.82 Long term (current) use of aspirin | CPT/HCPCS: 11042; A6402 ==

== ENCOUNTER 2017-03-19 10:41 | Outpatient (CLI) | payer MEDICARE, OTHER | END 2017-03-19 23:59 | disposition home health service (06) | LOC: WOU 10:41 | PROVIDERS: ATTEND Podiatrist Foot & Ankle Surgery | DX: E11.621 Type 2 diabetes mellitus with foot ulcer (principal); L97.523 Non-pressure chronic ulcer of other part of left foot with necrosis of muscle; T86.821 Skin graft (allograft) (autograft) failure; E11.42 Type 2 diabetes mellitus with diabetic polyneuropathy; Z89.422 Acquired absence of other left toe(s) | CPT/HCPCS: 11042; A6402; A6452 ==

== ENCOUNTER 2017-03-22 10:45 | Outpatient (CLI) | payer MEDICARE, OTHER | END 2017-03-22 23:59 | disposition home health service (06) | LOC: WOU 10:45 | PROVIDERS: ATTEND Podiatrist Foot & Ankle Surgery | DX: E11.621 Type 2 diabetes mellitus with foot ulcer (principal); L97.523 Non-pressure chronic ulcer of other part of left foot with necrosis of muscle; E11.42 Type 2 diabetes mellitus with diabetic polyneuropathy; Z89.422 Acquired absence of other left toe(s); Z87.891 Personal history of nicotine dependence; T86.821 Skin graft (allograft) (autograft) failure; Z79.84 Long term (current) use of oral hypoglycemic drugs; Z79.899 Other long term (current) drug therapy; Z79.4 Long term (current) use of insulin | CPT/HCPCS: 11042; A6402; A6452 ==

== ENCOUNTER 2017-03-26 10:35 | Outpatient (CLI) | payer MEDICARE, OTHER | END 2017-03-26 23:59 | disposition home health service (06) | LOC: WOU 10:35 | PROVIDERS: ATTEND Podiatrist Foot & Ankle Surgery | DX: E11.621 Type 2 diabetes mellitus with foot ulcer (principal); L97.523 Non-pressure chronic ulcer of other part of left foot with necrosis of muscle; T86.821 Skin graft (allograft) (autograft) failure; E11.42 Type 2 diabetes mellitus with diabetic polyneuropathy; Z89.422 Acquired absence of other left toe(s); Z89.432 Acquired absence of left foot; T87.89 Other complications of amputation stump; Z89.431 Acquired absence of right foot; Z91.19 Patient's noncompliance with other medical treatment and regimen; Z79.84 Long term (current) use of oral hypoglycemic drugs; Z79.4 Long term (current) use of insulin; Z79.82 Long term (current) use of aspirin | CPT/HCPCS: 11042; A6402; A6452 ==

== ENCOUNTER 2017-03-29 11:25 | Outpatient (CLI) | payer MEDICARE, OTHER | END 2017-03-29 23:59 | disposition home health service (06) | LOC: WOU 11:25 | PROVIDERS: ATTEND Podiatrist Foot & Ankle Surgery | DX: E11.621 Type 2 diabetes mellitus with foot ulcer (principal); L97.523 Non-pressure chronic ulcer of other part of left foot with necrosis of muscle; L97.511 Non-pressure chronic ulcer of other part of right foot limited to breakdown of skin; E11.42 Type 2 diabetes mellitus with diabetic polyneuropathy; T86.821 Skin graft (allograft) (autograft) failure; Z89.422 Acquired absence of other left toe(s); Z89.421 Acquired absence of other right toe(s); Z87.891 Personal history of nicotine dependence; Z79.4 Long term (current) use of insulin; Z79.84 Long term (current) use of oral hypoglycemic drugs; Z79.82 Long term (current) use of aspirin; Z79.899 Other long term (current) drug therapy | CPT/HCPCS: 11042; A6402; A6452 ==

== ENCOUNTER 2017-04-05 11:13 | Outpatient (CLI) | payer MEDICARE, OTHER | END 2017-04-05 23:59 | disposition home health service (06) | LOC: WOU 11:13 | PROVIDERS: ATTEND Podiatrist Foot & Ankle Surgery | DX: E11.621 Type 2 diabetes mellitus with foot ulcer (principal); L97.523 Non-pressure chronic ulcer of other part of left foot with necrosis of muscle; L97.511 Non-pressure chronic ulcer of other part of right foot limited to breakdown of skin; T86.821 Skin graft (allograft) (autograft) failure; E11.42 Type 2 diabetes mellitus with diabetic polyneuropathy; Z89.422 Acquired absence of other left toe(s); Z87.891 Personal history of nicotine dependence; T87.89 Other complications of amputation stump; Z89.421 Acquired absence of other right toe(s); Z79.84 Long term (current) use of oral hypoglycemic drugs; Z79.4 Long term (current) use of insulin | CPT/HCPCS: 11042; A6209; A6402; A6452 ==

== ENCOUNTER 2017-04-16 11:15 | Outpatient (CLI) | payer MEDICARE, OTHER | END 2017-04-16 23:59 | disposition home health service (06) | LOC: WOU 11:15 | PROVIDERS: ATTEND Podiatrist Foot & Ankle Surgery | DX: E11.621 Type 2 diabetes mellitus with foot ulcer (principal); L97.523 Non-pressure chronic ulcer of other part of left foot with necrosis of muscle; T86.821 Skin graft (allograft) (autograft) failure; E11.42 Type 2 diabetes mellitus with diabetic polyneuropathy; Z89.422 Acquired absence of other left toe(s); Z89.421 Acquired absence of other right toe(s); Z79.84 Long term (current) use of oral hypoglycemic drugs; Z79.4 Long term (current) use of insulin | CPT/HCPCS: 11042; A6209; A6402; A6452 ==

== ENCOUNTER 2017-04-23 11:11 | Outpatient (CLI) | payer MEDICARE, OTHER | END 2017-04-23 23:59 | disposition home health service (06) | LOC: WOU 11:11 | PROVIDERS: ATTEND Podiatrist Foot & Ankle Surgery | DX: E11.621 Type 2 diabetes mellitus with foot ulcer (principal); L97.523 Non-pressure chronic ulcer of other part of left foot with necrosis of muscle; E11.42 Type 2 diabetes mellitus with diabetic polyneuropathy; Z89.422 Acquired absence of other left toe(s); Z89.432 Acquired absence of left foot; L97.511 Non-pressure chronic ulcer of other part of right foot limited to breakdown of skin; Z79.84 Long term (current) use of oral hypoglycemic drugs; Z79.899 Other long term (current) drug therapy | CPT/HCPCS: 11042; 97605; A6402; A6209 ==

== ENCOUNTER 2017-04-26 10:59 | Outpatient (CLI) | payer MEDICARE, OTHER | END 2017-04-26 23:59 | disposition home health service (06) | LOC: WOU 10:59 | PROVIDERS: ATTEND Podiatrist Foot & Ankle Surgery | DX: E11.621 Type 2 diabetes mellitus with foot ulcer (principal); L97.524 Non-pressure chronic ulcer of other part of left foot with necrosis of bone; L97.512 Non-pressure chronic ulcer of other part of right foot with fat layer exposed; T86.821 Skin graft (allograft) (autograft) failure; E11.42 Type 2 diabetes mellitus with diabetic polyneuropathy; Z89.422 Acquired absence of other left toe(s); Z87.891 Personal history of nicotine dependence | CPT/HCPCS: 11042; 11044; 97605-TC; A6402 ==

== ENCOUNTER 2017-05-03 11:22 | Outpatient (CLI) | payer MEDICARE, OTHER ==
[2017-05-03] MEDS ORDERED: DILT240C2 PO (15:06)
[2017-05-03] MEDS ORDERED: DOXY100C2 PO (15:06)
[2017-05-03] MEDS ORDERED: METF500T4 PO (15:06)
[2017-05-03] MEDS ORDERED: INSU100V27 SQ (15:06)
[2017-05-03] MEDS ORDERED: FENO160T PO (15:06)
[2017-05-03] MEDS ORDERED: POTA10TA15 PO (15:07)
[2017-05-03] MEDS ORDERED: ATOR10TA PO (15:08)
== END 2017-05-03 23:59 | disposition home or self-care (01) ==
LOC: WOU 11:22
PROVIDERS: ATTEND Podiatrist Foot & Ankle Surgery
DX: E11.621 Type 2 diabetes mellitus with foot ulcer (principal); L97.524 Non-pressure chronic ulcer of other part of left foot with necrosis of bone; L97.513 Non-pressure chronic ulcer of other part of right foot with necrosis of muscle; T86.821 Skin graft (allograft) (autograft) failure; E11.42 Type 2 diabetes mellitus with diabetic polyneuropathy; Z89.422 Acquired absence of other left toe(s); Z87.891 Personal history of nicotine dependence; R09.89 Other specified symptoms and signs involving the circulatory and respiratory systems; M65.071 Abscess of tendon sheath, right ankle and foot
CPT/HCPCS: 10140; 11043; 11044; 82962; A6253; A6402 ×2; A6407

== ENCOUNTER 2017-05-03 14:10 | Inpatient (IN) | payer MEDICARE, OTHER ==
[2017-05-03] VITALS (17 sets, daily range): BP systolic 99–133; BP diastolic 43–71
[~2017-05-03] VITALS: Ht 193 cm; Wt 129.7 kg
--- NOTE | 2017-05-03 14:15 | NUR ---
pt to ed room 02. SENT FROM [facility] FOR SOB SINCE THIS MORNING. a/a/o. SIDE RAISL UP. HOB ELEVATED. CONNECTED TO MONIOTR. O2 VIA N/C. DR PADILLA AT BEDSIDE FOR EVAL.
[2017-05-03] MEDS ORDERED: DILTIAZEM HCL 25 MG IV ONE ×2 (14:16→14:51)
[2017-05-03] MEDS ORDERED: IV NS 0.9% 500 ML BAG IV ONE ×2 (14:30→16:00)
[2017-05-03 14:37] LABS: BASOPHILS # (AUTO) 0.1 /CMM (0.0-0.2); BASOPHILS % (AUTO) 0.4 % (0.0-2.0); EOSINOPHILS % (AUTO) 0.1 % (0.0-6.0); HEMATOCRIT 38 % (39-51); HEMOGLOBIN 12.4 g/dL (13.5-17.5); LYMPHOCYTES # (AUTO) 1.1 /CMM (0.8-4.8); LYMPHOCYTES % (AUTO) 3.3 % (20.0-44.0); MEAN CORPUSCULAR HEMOGLOBIN 23 PG (26.0-33.0); MEAN CORPUSCULAR HGB CONC 33 g/dl (31.0-36.0); MEAN CORPUSCULAR VOLUME 70 fL (80-96); MONOCYTES # (AUTO) 2.1 /CMM (0.1-1.30); MONOCYTES % (AUTO) 6.2 % (2.0-12.0); NEUTROPHILS # (AUTO) 31.3 /CMM (1.8-8.9); PLATELET COUNT (AUTO) 427 /CMM (150-450); RDW COEFFICIENT OF VARIATION 16.1 (11.5-15.0); RED BLOOD CELL COUNT(AUTO) 5.46 MIL/uL (4.5-6.0)
[2017-05-03 14:41] LABS: WHITE BLOOD COUNT (AUTO) 34.6 K/uL (4.3-11.0)
[2017-05-03 14:49] LABS: CALCIUM, SERUM 9.5 mg/dL (8.5-10.1); CARBON DIOXIDE 24 mmol/L (21-32); CHLORIDE 93 mmol/L (98-107); CREATININE 2.3 mg/dL (0.6-1.3); GLUCOSE 144 mg/dL (74-106); POTASSIUM 4.1 mmol/L (3.5-5.1); SODIUM SERUM 129 mmol/L (136-145); UREA NITROGEN, BLOOD 50 mg/dL (7-18)
--- NOTE | 2017-05-03 14:49 | NUR ---
BLOOD CULTURES DRAWN PRIOR TO IV ATB ADMINISTRATION.
--- NOTE | 2017-05-03 14:52 | NUR ---
PATIENT ASSIGNED TO ICU OVERFLOW ROOM# 108
[2017-05-03 14:56] LABS: TROPONIN I < 0.017 ng/mL (0.00-0.056)
[2017-05-03] MEDS ORDERED: ASPIRIN 81 MG TAB.CHEW ONE (14:57)
--- NOTE | 2017-05-03 14:58 | NUR ---
DR PADILLA CALLING CODE SEPSIS BUT DECIDED TO NOT GIVE THE RECOMMENDED FLUID RESUSCITATION DUE TO FLUID OVERLOAD SINCE PT HAS CHF ALSO
[2017-05-03 15:00] LABS: ALANINE AMINOTRANSFERASE 58 U/L (12-78); ALBUMIN 2.4 g/dL (3.4-5.0); ALKALINE PHOSPHATASE 138 U/L (46-116); ASPARTATE AMINOTRANSFERASE 61 U/L (15-37); B-TYPE NATRIURETIC PEPTIDE 3951 PG/ML (0-125); BILIRUBIN,DIRECT 0.5 mg/dL (0.0-0.2); TOTAL PROTEIN, SERUM 8.3 g/dL (6.4-8.2)
[2017-05-03] MEDS ORDERED: VANCOMYCIN 1 GM in IV D5W 250 ML IV ONE (15:00)
[2017-05-03] MEDS ORDERED: PIPERACILLIN /TAZOBACTAM 3.375 G in IV D5W 50 ML IV ONE (15:00)
[2017-05-03] MEDS ORDERED: ASPIRIN 325 MG TABLET PO ONE (15:00)
[2017-05-03] MEDS ORDERED: DILTIAZEM HCL 25 MG IV IV ONE ×2 (15:00)
[2017-05-03] MEDS ORDERED: DILTIAZEM HCL IV 125 MG in IV D5W 100 ML IV ONE (15:00)
[2017-05-03] MEDS ORDERED: DOXY100C2 PO (15:06)
[2017-05-03] MEDS ORDERED: FENO160T PO (15:06)
[2017-05-03] MEDS ORDERED: DILT240C2 PO (15:06)
[2017-05-03] MEDS ORDERED: INSU100V27 SQ (15:06)
[2017-05-03] MEDS ORDERED: METF500T4 PO (15:06)
[2017-05-03] MEDS ORDERED: POTA10TA15 PO (15:07)
[2017-05-03] MEDS ORDERED: ATOR10TA PO (15:08)
--- NOTE | 2017-05-03 15:33 | NUR ---
CARDIZEM IV INCREASED TO 10 MLS/HR PER DR PADILLA ORDER/PROTOCOL
--- NOTE | 2017-05-03 15:52 | NUR ---
CARDIZEM INCREASED TO 15 ML/HR (15 MG/HR) PER PROTOCOL/DR PADILLA ORDER.
[2017-05-03 15:59] LABS: BAND % (MANUAL) 13 % (0.0-5.0); LYMPHOCYTES % (MANUAL) 5 % (16-48); MONOCYTES % (MANUAL) 2 % (0-11.0); NEUTROPHILS % (MANUAL) 80 (42-76)
--- NOTE | 2017-05-03 16:18 | NUR ---
REPORT GIVEN TO ICU NURSE BHARAT Alice[place]
--- NOTE | 2017-05-03 16:45 | NUR ---
RN NOTES PT RECV'D FROM ED REPORT FROM CHARLIE NUNEZ. PT A&OX4. RAPID AFIB 140'S CARDIZEM GTT 15MG/HR RAC 18G. SL PIV LAC 18G. 3LNC 98%. 135.70, 99.0. SKIN WARM DRY. OBESE. VOIDS. QUIT SMKNG X 15 YRS. DRY COUGH. GOOD SPIRITS. BILAT TOES AMPUTATED IN PAST. BILAT OPEN FOOT WOUNDS. LACTIC ACID >4 NOW 2.0. WBC 34.6 TROP NEGATIVE BNP 3951. GIVEN 1L FLUIDS IN ED DELANEY REYNOSO. BED IN LOW LOCKED POSITION. SIDE RAILS UP. CALL LIGHT IN REACH. ORIENTED TO UNIT AND ROUTINE.
[2017-05-03] MEDS ORDERED: DEXTROSE 50%-WATER 50 ML DISP.SYRIN IV PRN (17:00)
[2017-05-03] MEDS ORDERED: hydrALAZINE HCL 25 MG TABLET PO PRN (17:00)
[2017-05-03] MEDS ORDERED: FEE PK DOSING 1 MIN EA MC ONE (17:20)
[2017-05-03] MEDS ORDERED: MAGNESIUM HYDROXIDE 30 ML UDC PO PRN (17:30)
[2017-05-03] MEDS ORDERED: ACETAMINOPHEN 325 MG TABLET PO PRN (17:30)
[2017-05-03] MEDS ORDERED: ONDANSETRON HCL/PF 4 MG/2 ML VIAL IVP PRN (17:30)
[2017-05-03] MEDS ORDERED: Z GUARD REMEDY 2 OZ OINT TP PRN (17:30)
[2017-05-03] MEDS ORDERED: DILTIAZEM HCL IV 125 MG in IV D5W 100 ML IV PRN (17:30)
[2017-05-03] MEDS ORDERED: MAG HYDROX/AL HYDROX/SIMETH 30 ML UDC PO PRN (17:30)
[2017-05-03] MEDS: BLOOD SUGAR DIAGNOSTIC 1 EACH STRIP IN SCH (17:56)
[2017-05-03] MEDS ORDERED: INSULIN LISPRO 16 UNIT SQ SCH (18:00)
[2017-05-03] MEDS ORDERED: VANCOMYCIN 1 GM in IV D5W 250 ML IV SCH (18:00)
--- NOTE | 2017-05-03 18:07 | NUR ---
RN CLOSING NOTES PT SITTING UP EATING DIABETIC MEAL IN BED. CARDIZEM GTT INFUSING 15MG/HR HR 125-150-DR. DONIS AWARE. PT CONSENTED FOR RT FOOT I&D IN AM. MRSA NARES, BILAT FOOT WOUND CULTURE SENT TO LAB. URINE C&S U/A TO BE COLLECTED. BED IN LOW LOCKED POSITION. CALL LIGHT IN REACH. SIDE RAILS UP. PT RESTING COMFORTBALY WATCHING TV. WILL CONT TO MONITOR AND ENDORSE TO NOC RN.
[2017-05-03] MEDS ORDERED: AMIODARONE 150 MG in IV D5W 100 ML IV ONE (19:00)
[2017-05-03] MEDS: MEROPENEM 500 MG in IV NS 0.9% 50 ML IV SCH (19:57)
[2017-05-03] MEDS: IV NS 0.9% 1,000 ML IV SCH (20:12)
[2017-05-03] MEDS: AMIODARONE 900 MG in IV D5W 482 ML IV PRN (20:18)
--- NOTE | 2017-05-03 21:08 | NUR ---
TEXTED DR. SCHMITZ FOR MRI APPROVAL.
--- NOTE | 2017-05-03 21:46 | NUR ---
SUPERVISOR MOLD SHOP. INITIAL ASSESSMENT. RECEIVED THE PT REST ON THE BED.AWAKE, ALERT, FOLLOW COMMANDS. IV RT AC 18G, LT AC 18G. IVF NS 75ML/H. AMIODARONE BOLUS GIVEN PER MD ORDERED. AMIODARONE 1MGSTARTED PER PROTOCOL. OXYGEN 3L VIA NASAL CANNULA. SAT 96%, CATTLE SORTER SHOWING AFIB, RATE IS 122. HOB ELEVATED. FADIA LEG INFECTED WOUND DRESSING INTACT. TURN AND REPOSITION PT INDEPENDENT. WILL CONTINUE TO MONITOR VITALS.
[2017-05-03] MEDS: HYDROCODONE/APAP 5/325MG 1 EACH TABLET PO PRN (22:17)
[2017-05-03] MEDS: ZOLPIDEM TARTRATE 5 MG TABLET PO PRN (23:59)
[2017-05-04] VITALS (30 sets, daily range): BP systolic 52–131; BP diastolic 21–86
[2017-05-04] MEDS: BLOOD SUGAR DIAGNOSTIC 1 EACH STRIP IN SCH ×2 (00:01→05:54)
[2017-05-04] MEDS: INSULIN DETEMIR 100 UNIT/ML CARTRIDGE SQ SCH ×2 (00:01→22:00)
[2017-05-04] MEDS: INSULIN REGULAR, HUMAN 100 UNIT/ML 3 ML VIAL SQ PRN ×4 (00:02→16:46)
--- NOTE | 2017-05-04 01:47 | NUR ---
OFFSET PRINTING OPERATOR. PT NPO FOR PROCEDURE.
--- NOTE | 2017-05-04 03:42 | NUR ---
[employer] ACCESS DEVELOPER. AM CARE.ORAL CARE, BED BATH GIVEN. LINEN CHANGED, REMAINING SAME OXYGEN TOLERATED WELL. SAT 97%. NOPT SLEPT WELL DURING SHIFT. AERODYNAMICS TEACHER SHOWING AFIB. RATE IS 104.TAC 18G, LT AC 18G. IVF NS 75ML/H, AMIODARONE 0.5MG/MIN. PT IS NPO. FADIA FOOT INFECTED, DRESSING DONE, TEMPERATURE 99.4.WILL CONTINUE TO MONITOR VITALS.
[2017-05-04 05:11] LABS: BASOPHILS # (AUTO) 0.1 /CMM (0.0-0.2); BASOPHILS % (AUTO) 0.3 % (0.0-2.0); EOSINOPHILS # (AUTO) 0.3 /CMM (0.0-0.7); EOSINOPHILS % (AUTO) 1.3 % (0.0-6.0); HEMATOCRIT 33 % (39-51); HEMOGLOBIN 10.4 g/dL (13.5-17.5); LYMPHOCYTES # (AUTO) 1.7 /CMM (0.8-4.8); LYMPHOCYTES % (AUTO) 7.9 % (20.0-44.0); MEAN CORPUSCULAR HEMOGLOBIN 23 PG (26.0-33.0); MEAN CORPUSCULAR HGB CONC 32 g/dl (31.0-36.0); MEAN CORPUSCULAR VOLUME 71 fL (80-96); MONOCYTES # (AUTO) 1.4 /CMM (0.1-1.30); MONOCYTES % (AUTO) 6.3 % (2.0-12.0); NEUTROPHILS # (AUTO) 18.3 /CMM (1.8-8.9); NEUTROPHILS % (AUTO) 84.2 % (43.0-81.0); PLATELET COUNT (AUTO) 389 /CMM (150-450); RDW COEFFICIENT OF VARIATION 17.3 (11.5-15.0); RED BLOOD CELL COUNT(AUTO) 4.58 MIL/uL (4.5-6.0); WHITE BLOOD COUNT (AUTO) 21.8 K/uL (4.3-11.0)
[2017-05-04 05:24] LABS: CALCIUM, SERUM 8.5 mg/dL (8.5-10.1); CREATININE 1.6 mg/dL (0.6-1.3); PHOSPHORUS 3.2 mg/dL (2.5-4.9); POTASSIUM 3.7 mmol/L (3.5-5.1)
[2017-05-04 05:37] LABS: BAND % (MANUAL) 5 % (0.0-5.0); EOSINOPHILS % (MANUAL) 1 % (0-4); LYMPHOCYTES % (MANUAL) 13 % (16-48); MONOCYTES % (MANUAL) 5 % (0-11.0); NEUTROPHILS % (MANUAL) 76 (42-76)
[2017-05-04] MEDS: MEROPENEM 500 MG in IV NS 0.9% 50 ML IV SCH ×2 (05:54→17:08)
--- NOTE | 2017-05-04 07:00 | NUR ---
icu initial note received pt in bed, awake, a/o x4, able to make needs known, able to follow commands, pt is on bedside monitor showing uncontrolled a-fib in the 120's, no c/o of chest pain or discomfort at this time, pt is on 3l nc, sating well, no s/s of resp.distress or sob noted at this time, pt uses urinal, pt has l wrist #22g, lac #18g, running ns @ 75ml/hr, amio @ 0.5mg/hr, c/d/i/patent, flushing well, no s/s of infection/ infiltration noted at this time, pt is noted with multiple skin issues, wound treatments ack and will be carried out, all needs met at this time, all safety measures in place at all times, call light within easy reach, will monitor pt closely for changes
[2017-05-04] MEDS: ATORVASTATIN 10 MG TABLET PO SCH (08:06)
[2017-05-04] MEDS: ASPIRIN EC 81 MG TABLET.DR PO SCH (08:06)
[2017-05-04] MEDS: ATENOLOL 25 MG TABLET PO SCH (08:06)
[2017-05-04 08:12] LABS: INR 1.1 (0.87-1.13); PROTHROMBIN TIME 11.4 SECS (9.5-12.7)
[2017-05-04] MEDS: INSULIN ASPART HUMALOG/NOVOLOG 100 UNIT/ML CARTRIDGE SQ SCH ×3 (09:00→16:45)
[2017-05-04] MEDS ORDERED: DILTIAZEM HCL CD 240 MG PO SCH (09:00)
[2017-05-04] MEDS: IV NS 0.9% 1,000 ML IV SCH (09:15)
--- NOTE | 2017-05-04 09:31 | NUR ---
icu note dr. palacios made rounds, aware all of labs and test results. informed me that pt is not stable for surgery, waiting for cardio to see pt. called dr. moody informed him about, surgery will not be performed, will debrided at bedside.
--- NOTE | 2017-05-04 09:33 | NUR ---
icu note mri checklist completed by pt, pt has a titanium plate in back, informed director of digital technology, okay to proceed
--- NOTE | 2017-05-04 10:59 | NUR ---
ICU NOTE PT RETURNED FOR MRI, PT TOLERATED WELL
--- NOTE | 2017-05-04 11:21 | NUR ---
icu note mihai marinelli at bedside, aware of all labs and results, no new orders at this time
--- NOTE | 2017-05-04 11:46 | NUR ---
icu note spoke with dr. palacios, order given to change accu to [facility] and order tray for pt
[2017-05-04] MEDS ORDERED: DEXTROSE 50%-WATER 50 ML DISP.SYRIN IV PRN (12:00)
[2017-05-04] MEDS: HYDROCODONE/APAP 5/325MG 1 EACH TABLET PO PRN (12:05)
[2017-05-04] MEDS: BLOOD SUGAR DIAGNOSTIC 1 EACH STRIP VI SCH ×3 (12:05→22:03)
[2017-05-04] MEDS ORDERED: LIDOCAINE 1% INJ 50 ML MDV IJ ONE (12:30)
--- NOTE | 2017-05-04 13:09 | NUR ---
icu note spoke with dr. palacios, pt okay to be transferred to [facility] with all medications.
--- NOTE | 2017-05-04 13:10 | NUR ---
icu note dr. moody at bedside to perform debridement of both feet, consent signed.
[2017-05-04] MEDS: VANCOMYCIN 1.5 GM in IV D5W 500 ML IV SCH (14:39)
[2017-05-04] MEDS ORDERED: VANCOMYCIN 1 GM in IV D5W 250 ML IV SCH (15:00)
--- NOTE | 2017-05-04 16:30 | NUR ---
icu note at bedside, ordered amio @ 0.5mg, continuos drip
[2017-05-04] MEDS: HYDROCODONE/APAP 10/325MG 1 EA TABLET PO PRN (16:46)
[2017-05-04] MEDS: AMIODARONE 900 MG in IV D5W 482 ML IV PRN (17:08)
[2017-05-04] MEDS: METOPROLOL TARTRATE 50 MG TABLET PO SCH (17:09)
--- NOTE | 2017-05-04 19:20 | NUR ---
closing notes all medications given, all orders carried out, pt keep clean and dry, all treatments carried out, report given to pm rn for venessa
--- NOTE | 2017-05-04 20:00 | NUR ---
RN INITIAL NOTE; PT ON THE BED RESTING WITHOUT ANY DISTRESS . A/O X 3 , BREATHING EVEN AND UNLABORED ON 2 LPM VIA NC . TELE MONITOR SHOWING A-FIB HR 103 AT THIS TIME . L WRIST PERIPHERAL IV 22 G INTACT WITH CONTINUE AMIO DRIP @ 0.5 MG/HR . DENIED ANY PAIN AT THIS TIME . ABLE TO USE URINAL. WILL ASSIST NEEDED , CALL LIGHT WITHIN REACH . BED IN THE LOWEST/LOCKED POSITION , SAFETY MEASURES APPLIED. WILL CONTINUE TO MONITOR .
--- NOTE | 2017-05-04 20:15 | NUR ---
RN NOTE; UNABLE TO GET PERIPHERAL IV AFTER SEVERAL ATTEMPT BY PREVIOUS SHIFT RN , PT REFUSED TO STICK ANY MORE. RECEIVED ORDER FOR MID LINE INSERTION . WILL NOTIFY PICC LINE NURSE .
--- NOTE | 2017-05-04 20:40 | NUR ---
Patient is alert and oriented, has hard of hearing. Spoke with [place], patient lives with in [place] [address] level home with few steps to entrance. He ambulates with assistive device, semi-independent with adl's. Has adequate DME- electric scooter, manual wheelchair, walker, commode and glucometer. Patient is currently on service with a homehealth, will call for the homehealth contact info in am. Patient goes [facility] wound clinic regularly for diabetic wound care. will be available to provide ride when discharge. Addendum: 05/04/17 at 2040 by LESLIE SWANSON RN Amended: Links added.
[2017-05-04] MEDS: *INSULIN REGULAR(HUMULIN R)HUM 100 UNIT/ML VIAL SQ PRN (22:02)
[2017-05-05] VITALS: BP 122/68
[2017-05-05] MEDS: METOPROLOL TARTRATE 50 MG TABLET PO SCH ×4 (00:03→18:00)
[2017-05-05] MEDS: ZOLPIDEM TARTRATE 5 MG TABLET PO PRN (00:06)
--- NOTE | 2017-05-05 00:07 | NUR ---
RN NOTE; PRN AMBIEN 5 MG PO GIVEN FOR INSOMNIA , TOLERATED WELL AT THIS TIME, WILL REASSESS.
[2017-05-05] MEDS: HYDROCODONE/APAP 10/325MG 1 EA TABLET PO PRN ×4 (03:44→22:15)
--- NOTE | 2017-05-05 03:45 | NUR ---
RN NOTE; PRN NORCO 10/325 MG PO GIVEN FOR GENERALIZED PAIN 02/05 , NON PHARMACOLOGICAL INTERVENTIONS APPLIED . TOLERATED WELL AT THIS TIME . WILL REASSESS.
[2017-05-05 04:00] VITALS: BP 113/65
[2017-05-05] MEDS: MEROPENEM 500 MG in IV NS 0.9% 50 ML IV SCH ×2 (06:08→19:07)
[2017-05-05] MEDS: BLOOD SUGAR DIAGNOSTIC 1 EACH STRIP VI SCH ×4 (06:33→22:17)
--- NOTE | 2017-05-05 06:51 | NUR ---
RN EOS NOTE; PT REMAINED STABLE DURING THE SHIFT, STILL SHOWING A-FIB WITH HR 90s-100s on tele monitor . AMIODARONE DRIP CONTINUE . IV SITE INTACT AND PATENT . DENIED ANY CHEST PAIN . ALL NEEDS ATTENDED PROMPTLY. KEPT CLEAN AND DRY . WILL ENDORSE TO NEXT SHIFT RN FOR CONTINUITY OF CARE.
--- NOTE | 2017-05-05 07:05 | NUR ---
RN INITIAL NOTE PATIENT RECEIVED IN BED SLEEPING, EASILY AROUSED. ALERT AND ORIENTED. ABLE TO MAKE NEEDS KNOWN. NO S/S OF PAIN OR DISCOMFORT. AFIB ON TELE MONITOR. RESPIRATIONS ARE EVEN AND UNLABORED. SATING WELL ON 2L NASAL CANULA. NO S/S OF RESPIRATORY DISTRESS OR SOB. IV SITE FLUSHED, PATENT. SKIN IS WARM AND DRY TO TOUCH. SAFETY PRECAUTIONS IMPLEMENTED. BED IN LOCKED, LOW POSITION WITH TWO SIDE RAILS UP. CALL LIGHT AND BELONGINGS WITHIN EASY REACH. WILL CONTINUE TO MONITOR.
[2017-05-05 07:14] LABS: CALCIUM, SERUM 9.4 mg/dL (8.5-10.1); CREATININE 1.3 mg/dL (0.6-1.3); POTASSIUM 4.6 mmol/L (3.5-5.1)
[2017-05-05 08:00] VITALS: BP 122/73
[2017-05-05] MEDS: ATENOLOL 25 MG TABLET PO SCH (08:30)
[2017-05-05] MEDS: ATORVASTATIN 10 MG TABLET PO SCH (08:30)
[2017-05-05] MEDS: FENOFIBRATE NANOCRYS (145 MG) 145 MG TABLET PO SCH (08:30)
[2017-05-05] MEDS: ASPIRIN EC 81 MG TABLET.DR PO SCH (08:30)
[2017-05-05] MEDS: INSULIN ASPART HUMALOG/NOVOLOG 100 UNIT/ML CARTRIDGE SQ SCH ×3 (08:53→17:00)
[2017-05-05 12:00] VITALS: BP 103/71
[2017-05-05 13:01] LABS: BASOPHILS # (AUTO) 1.2 /CMM (0.0-0.2); EOSINOPHILS # (AUTO) 0.6 /CMM (0.0-0.7); EOSINOPHILS % (AUTO) 2.4 % (0.0-6.0); HEMATOCRIT 38 % (39-51); HEMOGLOBIN 11.6 g/dL (13.5-17.5); LYMPHOCYTES # (AUTO) 4.2 /CMM (0.8-4.8); MEAN CORPUSCULAR HEMOGLOBIN 22 PG (26.0-33.0); MEAN CORPUSCULAR HGB CONC 31 g/dl (31.0-36.0); MEAN CORPUSCULAR VOLUME 72 fL (80-96); MONOCYTES # (AUTO) 1.8 /CMM (0.1-1.30); MONOCYTES % (AUTO) 7.8 % (2.0-12.0); NEUTROPHILS # (AUTO) 15.4 /CMM (1.8-8.9); NEUTROPHILS % (AUTO) 66.5 % (43.0-81.0); PLATELET COUNT (AUTO) 539 /CMM (150-450); RDW COEFFICIENT OF VARIATION 18.2 (11.5-15.0); RED BLOOD CELL COUNT(AUTO) 5.22 MIL/uL (4.5-6.0); WHITE BLOOD COUNT (AUTO) 23.2 K/uL (4.3-11.0)
[2017-05-05 13:04] LABS: BASOPHILS % (AUTO) 5.3 % (0.0-2.0)
[2017-05-05 13:17] LABS: BAND % (MANUAL) 2 % (0.0-5.0); EOSINOPHILS % (MANUAL) 1 % (0-4); LYMPHOCYTES % (MANUAL) 17 % (16-48); MONOCYTES % (MANUAL) 8 % (0-11.0); NEUTROPHILS % (MANUAL) 72 (42-76)
[2017-05-05] MEDS: VANCOMYCIN 1.5 GM in IV D5W 500 ML IV SCH (14:38)
[2017-05-05 16:00] VITALS: BP 116/76
[2017-05-05] MEDS: INSULIN REGULAR, HUMAN 100 UNIT/ML 3 ML VIAL SQ PRN ×2 (19:11→22:31)
--- NOTE | 2017-05-05 19:30 | NUR ---
Received patient in the bed.No unusual signs or symptoms observed or reported,no signs of discomfort or distress.Telemetry attach,recording A-fib control at 92 bpm.Vital signs taken all in the normal range.
[2017-05-05 20:00] VITALS: BP 115/73
[2017-05-05] MEDS: INSULIN DETEMIR 100 UNIT/ML CARTRIDGE SQ SCH (22:26)
--- NOTE | 2017-05-05 23:00 | NUR ---
Requested and received ordered Ambien 5mg earlier,no problems
[2017-05-06] VITALS: BP 115/76
[2017-05-06] MEDS: METOPROLOL TARTRATE 50 MG TABLET PO SCH ×5 (00:15→23:20)
[2017-05-06] MEDS: ZOLPIDEM TARTRATE 5 MG TABLET PO PRN (00:18)
--- NOTE | 2017-05-06 03:00 | NUR ---
No problems,resting quietly
[2017-05-06 04:00] VITALS: BP 123/65
[2017-05-06] MEDS: MEROPENEM 500 MG in IV NS 0.9% 50 ML IV SCH ×2 (06:40→17:19)
[2017-05-06] MEDS: HYDROCODONE/APAP 10/325MG 1 EA TABLET PO PRN ×3 (06:40→21:15)
--- NOTE | 2017-05-06 07:00 | NUR ---
No unusual signs or symptoms observed or reported,no signs of discomfort or distress,resting quietly
[2017-05-06 07:43] LABS: BASOPHILS # (AUTO) 0.2 /CMM (0.0-0.2); EOSINOPHILS # (AUTO) 0.4 /CMM (0.0-0.7); EOSINOPHILS % (AUTO) 2.1 % (0.0-6.0); HEMATOCRIT 33 % (39-51); HEMOGLOBIN 10.4 g/dL (13.5-17.5); LYMPHOCYTES # (AUTO) 1.9 /CMM (0.8-4.8); LYMPHOCYTES % (AUTO) 11.3 % (20.0-44.0); MEAN CORPUSCULAR HEMOGLOBIN 22 PG (26.0-33.0); MEAN CORPUSCULAR HGB CONC 31 g/dl (31.0-36.0); MEAN CORPUSCULAR VOLUME 71 fL (80-96); NEUTROPHILS # (AUTO) 13.6 /CMM (1.8-8.9); NEUTROPHILS % (AUTO) 79.6 % (43.0-81.0); PLATELET COUNT (AUTO) 442 /CMM (150-450); RDW COEFFICIENT OF VARIATION 17.6 (11.5-15.0); RED BLOOD CELL COUNT(AUTO) 4.65 MIL/uL (4.5-6.0); WHITE BLOOD COUNT (AUTO) 17.1 K/uL (4.3-11.0)
[2017-05-06 07:46] LABS: CALCIUM, SERUM 8.6 mg/dL (8.5-10.1); CREATININE 1.3 mg/dL (0.6-1.3); POTASSIUM 5.3 mmol/L (3.5-5.1)
[2017-05-06 08:00] VITALS: BP 110/56
--- NOTE | 2017-05-06 08:03 | NUR ---
TERMITE CONTROL TECHNICIAN NOTE PATIENT RECEIVED IN BED SLEEPING, EASILY AROUSED. ALERT AND ORIENTED. ABLE TO MAKE NEEDS KNOWN. NO S/S OF PAIN OR DISCOMFORT. AFIB ON TELE MONITOR HR 115 AT THIS TIME , RESPIRATIONS ARE EVEN AND UNLABORED. SATING WELL ON 2L NASAL CANULA. NO S/S OF RESPIRATORY DISTRESS OR SOB. IV SITE FLUSHED, RT UPPER ARM MID LINE IN PLACE , SKIN IS WARM AND DRY TO TOUCH. SAFETY PRECAUTIONS IMPLEMENTED. BED IN LOCKED, LOW POSITION WITH TWO SIDE RAILS UP. CALL LIGHT AND BELONGINGS WITHIN EASY REACH. WILL CONTINUE TO MONITOR.PLAN OF CARE DISCUSSED WITH PATIENT
[2017-05-06] MEDS: ATORVASTATIN 10 MG TABLET PO SCH (08:12)
[2017-05-06] MEDS: ASPIRIN EC 81 MG TABLET.DR PO SCH (08:12)
[2017-05-06] MEDS: FENOFIBRATE NANOCRYS (145 MG) 145 MG TABLET PO SCH (08:13)
[2017-05-06] MEDS: INSULIN REGULAR, HUMAN 100 UNIT/ML 3 ML VIAL SQ PRN ×4 (08:17→21:31)
[2017-05-06] MEDS: BLOOD SUGAR DIAGNOSTIC 1 EACH STRIP VI SCH ×4 (08:19→21:32)
[2017-05-06 08:36] LABS: LYMPHOCYTES % (MANUAL) 13 % (16-48); MONOCYTES % (MANUAL) 6 % (0-11.0); NEUTROPHILS % (MANUAL) 81 (42-76)
[2017-05-06] MEDS ORDERED: SODIUM POLYSTYRENE SULFONATE 15 G/60 ML BOTTLE PO ONE (09:00)
[2017-05-06] MEDS: INSULIN ASPART HUMALOG/NOVOLOG 100 UNIT/ML CARTRIDGE SQ SCH ×3 (09:29→16:34)
--- NOTE | 2017-05-06 09:35 | NUR ---
TOBACCO WRAPPING MACHINE TENDER NOTE K 5.3 DR SOTO NOTIFIED WITH KAYEXALATE ORDERED, WILL F\U
[2017-05-06] MEDS ORDERED: FLU VACC QS 2017-18(36MOS+)/PF 0.5 ML DISP.SYRIN IM ONE (11:30)
[2017-05-06 12:00] VITALS: BP 126/74
--- NOTE | 2017-05-06 12:30 | NUR ---
STREET SWEEPER NOTE ALL NEEDS ATTENDED ,PATIENT IS EATING LUNCH, NO C\O CHEST PAIN, ON TELE MONITOR AFIB HR 130 .OFFERED TO STAY IN BED QUIETLY, NO SOB NOTED, WILL CONT TO MONITOR ACCORDANTLY
[2017-05-06] MEDS: VANCOMYCIN 1.5 GM in IV D5W 500 ML IV SCH (14:06)
--- NOTE | 2017-05-06 14:30 | NUR ---
SPRAY DRIER OPERATOR HELPER NOTE PATIENT RESTING IN BED , NOT IN DISTRESS ON TELE MONITOR AFIB 110- 115, WILL CONT TO MONITOR CLOSELY
--- NOTE | 2017-05-06 15:25 | NUR ---
SLAB INSPECTOR NOTE TX DONE ON RT AND FT FOOT ORDERED, KEEP CLEAN DRY OFF PRESSURE ,WILL CONT TO MONITOR CLOSELY
[2017-05-06 16:00] VITALS: BP 127/70
--- NOTE | 2017-05-06 17:32 | NUR ---
LUPILLO NUNEZ NOTE BRENNEN NUNEZ INSTRUMENTATION TECH ID AT BEDSIDE NOTIFIED THAT T 99.3 NO NEW ORDER GIVEN AT THIS TIME Addendum: 05/06/17 at 1811 by SKYLER PATTERSON RN LUPILLO NUNEZ NOTE SPOKE WITH BRENNEN NUNEZ ID NOTIFIED THAT ON BLOOD CX WITH GRAM NEGATIVE RODS AWARE THAT PATIENT ON MERREM AND VANCO ,STATED ITS OK , NO NEW ORDER GIVEN AT THIS TIME
--- NOTE | 2017-05-06 19:30 | NUR ---
Received patient in the bed.No unusual signs or symptoms observed or reported,no signs of discomfort or distress,resting quietly.Telemetry attach,recording A-fib uncontrolled with heart going as high as 150 when patient engages in ADLs .VS taken all are in the normal range except for the HR 118.No problems,resting quietly.
[2017-05-06 20:00] VITALS: BP_SYST 112; BP_SYST 126; BP_DIAS 72; BP_DIAS 78
--- NOTE | 2017-05-06 21:16 | NUR ---
Requested and received [place] 10 mg for pain,no problems.
[2017-05-06] MEDS: INSULIN DETEMIR 100 UNIT/ML CARTRIDGE SQ SCH (21:24)
[2017-05-07] VITALS (7 sets, daily range): BP systolic 104–131; BP diastolic 63–80
--- NOTE | 2017-05-07 | NUR ---
Resting quietly,no problems,no complaints.
[2017-05-07] MEDS: HYDROCODONE/APAP 10/325MG 1 EA TABLET PO PRN ×5 (01:54→23:12)
[2017-05-07] MEDS: METOPROLOL TARTRATE 50 MG TABLET PO SCH ×3 (05:34→17:43)
[2017-05-07] MEDS: MEROPENEM 500 MG in IV NS 0.9% 50 ML IV SCH (05:44)
[2017-05-07 06:38] LABS: BASOPHILS % (AUTO) 0.2 % (0.0-2.0); EOSINOPHILS # (AUTO) 0.3 /CMM (0.0-0.7); EOSINOPHILS % (AUTO) 2.4 % (0.0-6.0); HEMATOCRIT 34 % (39-51); HEMOGLOBIN 10.6 g/dL (13.5-17.5); LYMPHOCYTES # (AUTO) 2.5 /CMM (0.8-4.8); LYMPHOCYTES % (AUTO) 17.6 % (20.0-44.0); MEAN CORPUSCULAR HEMOGLOBIN 23 PG (26.0-33.0); MEAN CORPUSCULAR HGB CONC 31 g/dl (31.0-36.0); MEAN CORPUSCULAR VOLUME 72 fL (80-96); MONOCYTES # (AUTO) 1.2 /CMM (0.1-1.30); MONOCYTES % (AUTO) 8.2 % (2.0-12.0); NEUTROPHILS # (AUTO) 10.3 /CMM (1.8-8.9); NEUTROPHILS % (AUTO) 71.6 % (43.0-81.0); PLATELET COUNT (AUTO) 475 /CMM (150-450); RDW COEFFICIENT OF VARIATION 17.9 (11.5-15.0); RED BLOOD CELL COUNT(AUTO) 4.72 MIL/uL (4.5-6.0); WHITE BLOOD COUNT (AUTO) 14.4 K/uL (4.3-11.0)
[2017-05-07] MEDS: BLOOD SUGAR DIAGNOSTIC 1 EACH STRIP VI SCH ×4 (06:58→22:11)
[2017-05-07 07:16] LABS: CALCIUM, SERUM 8.9 mg/dL (8.5-10.1); CREATININE 1.2 mg/dL (0.6-1.3); POTASSIUM 5.9 mmol/L (3.5-5.1)
--- NOTE | 2017-05-07 07:30 | NUR ---
RN NOTES RECEIVED PATIENT IN BED ALERT, AWAKE, ORIENTED X3 WITH BREATHING NORMAL, EVEN AND UNLABORED. NO SOB NOTED. NO ACUTE DISTRESS NOTED. TELE MONITOR REVEALS UNCONTROLLED A- FIB, NS=[id number]. BRENDA MIDLINE IS PATENT AND INTACT. KEPT CLEAN, DRY AND COMFORTABLE. ALL NEEDS ATTENDED. SAFETY MEASURE OBSERVED. CALL LIGHT WITH IN REACH. WILL CONT TO MONITOR.
[2017-05-07] MEDS: ASPIRIN EC 81 MG TABLET.DR PO SCH (08:10)
[2017-05-07] MEDS: FENOFIBRATE NANOCRYS (145 MG) 145 MG TABLET PO SCH (08:10)
[2017-05-07] MEDS: ATORVASTATIN 10 MG TABLET PO SCH (08:11)
[2017-05-07] MEDS: INSULIN ASPART HUMALOG/NOVOLOG 100 UNIT/ML CARTRIDGE SQ SCH ×3 (08:11→17:44)
[2017-05-07] MEDS ORDERED: FUROSEMIDE 20 MG/2 ML VIAL IV ONE (08:30)
[2017-05-07] MEDS ORDERED: SODIUM POLYSTYRENE SULFONATE 15 G/60 ML BOTTLE PO ONE (08:30)
[2017-05-07 10:39] LABS: BAND % (MANUAL) 2 % (0.0-5.0); EOSINOPHILS % (MANUAL) 4 % (0-4); LYMPHOCYTES % (MANUAL) 7 % (16-48); MONOCYTES % (MANUAL) 11 % (0-11.0); NEUTROPHILS % (MANUAL) 76 (42-76)
[2017-05-07] MEDS: INSULIN REGULAR, HUMAN 100 UNIT/ML 3 ML VIAL SQ PRN ×3 (12:38→22:17)
[2017-05-07] MEDS: VANCOMYCIN 1.5 GM in IV D5W 500 ML IV SCH (14:50)
[2017-05-07] MEDS: CEFEPIME 1 GM in IV D5W 50 ML IV SCH (18:16)
--- NOTE | 2017-05-07 18:58 | NUR ---
RN NOTES PATIENT ENDORSED TO NEXT SHIFT IN STABLE CONDITION WITH BREATHING NORMAL, EVEN AND UNLABORED. NO SOB NOTED. NO ACUTE DISTRESS NOTED. KEPT CLEAN, DRY AND COMFORTABLE. ALL NEEDS ATTENDED. SAFETY MEASURE OBSERVED. CALL LIGHT WITH IN REACH. WILL CONT TO MONITOR.
[2017-05-07] MEDS: INSULIN DETEMIR 100 UNIT/ML CARTRIDGE SQ SCH (22:17)
[2017-05-08 04:00] VITALS: BP 135/72
[2017-05-08 04:35] VITALS: BP 135/72
[2017-05-08] MEDS: CEFEPIME 1 GM in IV D5W 50 ML IV SCH ×2 (05:13→17:11)
[2017-05-08] MEDS: HYDROCODONE/APAP 10/325MG 1 EA TABLET PO PRN ×3 (05:51→19:48)
[2017-05-08 05:58] LABS: BASOPHILS # (AUTO) 0.1 /CMM (0.0-0.2); BASOPHILS % (AUTO) 0.4 % (0.0-2.0); EOSINOPHILS # (AUTO) 0.4 /CMM (0.0-0.7); EOSINOPHILS % (AUTO) 3.1 % (0.0-6.0); HEMATOCRIT 34 % (39-51); HEMOGLOBIN 10.7 g/dL (13.5-17.5); LYMPHOCYTES # (AUTO) 3.3 /CMM (0.8-4.8); LYMPHOCYTES % (AUTO) 22.6 % (20.0-44.0); MEAN CORPUSCULAR HEMOGLOBIN 22 PG (26.0-33.0); MEAN CORPUSCULAR HGB CONC 31 g/dl (31.0-36.0); MEAN CORPUSCULAR VOLUME 72 fL (80-96); MONOCYTES # (AUTO) 1.1 /CMM (0.1-1.30); MONOCYTES % (AUTO) 7.7 % (2.0-12.0); NEUTROPHILS # (AUTO) 9.5 /CMM (1.8-8.9); NEUTROPHILS % (AUTO) 66.2 % (43.0-81.0); PLATELET COUNT (AUTO) 485 /CMM (150-450); RDW COEFFICIENT OF VARIATION 17.8 (11.5-15.0); RED BLOOD CELL COUNT(AUTO) 4.78 MIL/uL (4.5-6.0); WHITE BLOOD COUNT (AUTO) 14.4 K/uL (4.3-11.0)
[2017-05-08 06:15] LABS: ALBUMIN 2.1 g/dL (3.4-5.0); BILIRUBIN,TOTAL 0.4 mg/dL (0.2-1.0); CALCIUM, SERUM 8.6 mg/dL (8.5-10.1); CREATININE 1.1 mg/dL (0.6-1.3); MAGNESIUM 1.5 mg/dL (1.8-2.4); PHOSPHORUS 3.6 mg/dL (2.5-4.9); TOTAL PROTEIN, SERUM 7.2 g/dL (6.4-8.2)
[2017-05-08 06:33] LABS: EOSINOPHILS % (MANUAL) 3 % (0-4); LYMPHOCYTES % (MANUAL) 22 % (16-48); MONOCYTES % (MANUAL) 4 % (0-11.0); NEUTROPHILS % (MANUAL) 71 (42-76)
[2017-05-08] MEDS: BLOOD SUGAR DIAGNOSTIC 1 EACH STRIP VI SCH ×4 (07:30→21:18)
--- NOTE | 2017-05-08 07:30 | NUR ---
RN NOTES RECEIVED PATIENT IN BED ALERT, AWAKE, ORIENTED X3 WITH BREATHING NORMAL, EVEN AND UNLABORED. NO SOB NOTED. NO ACUTE DISTRESS NOTED. TELE MONITOR REVEALS UNCONTROLLED A- FIB, FI=330. BRENDA MIDLINE IS PATENT AND INTACT. KEPT CLEAN, DRY AND COMFORTABLE. ALL NEEDS ATTENDED. SAFETY MEASURE OBSERVED. CALL LIGHT WITH IN REACH. WILL CONT TO MONITOR.
[2017-05-08 08:00] VITALS: BP 122/87
[2017-05-08] MEDS: ATORVASTATIN 10 MG TABLET PO SCH (08:56)
[2017-05-08] MEDS: ASPIRIN EC 81 MG TABLET.DR PO SCH (08:56)
[2017-05-08] MEDS: METOPROLOL TARTRATE 50 MG TABLET PO SCH ×2 (08:57→17:11)
[2017-05-08] MEDS: FENOFIBRATE NANOCRYS (145 MG) 145 MG TABLET PO SCH (08:57)
[2017-05-08] MEDS: INSULIN ASPART HUMALOG/NOVOLOG 100 UNIT/ML CARTRIDGE SQ SCH ×3 (09:01→17:09)
[2017-05-08] MEDS ORDERED: Magnesium 1GM/D5W 100ML PREMIX 100 ML IV SCH (10:50)
[2017-05-08 13:33] VITALS: BP 122/87
[2017-05-08 16:00] VITALS: BP 124/70
[2017-05-08 20:00] VITALS: BP 122/75
[2017-05-08] MEDS: INSULIN DETEMIR 100 UNIT/ML CARTRIDGE SQ SCH (21:19)
--- NOTE | 2017-05-08 21:43 | NUR ---
RN MS INITIAL NOTE PT RECEIVED IN NO CUTE DISTRESS. A/O X4 AND BALE TO MAKE NEEDS KNOWN. PT HAS BRENDA MIDLINE. COMFORT AND SAFETY MEASURES TO BE PLACED DURING THE SHIFT. WILL CONTINUE TO MONITOR FOR ANY CHANGES.
[2017-05-09 04:00] VITALS: BP 135/55
[2017-05-09] MEDS: CEFEPIME 1 GM in IV D5W 50 ML IV SCH ×2 (05:08→17:05)
[2017-05-09 06:07] LABS: CALCIUM, SERUM 8.7 mg/dL (8.5-10.1); CREATININE 1.2 mg/dL (0.6-1.3); POTASSIUM 4.8 mmol/L (3.5-5.1)
--- NOTE | 2017-05-09 07:01 | NUR ---
RN MS CLOSING NOTE PT REMAINS IN NO ACUTE DISTRESS AT THIS TIME. ALL DUE MEDICATIONS WERE GIVEN ORDERED AND TOLERATED. COMFORT AND SAFETY MEASURES WERE PLACED AND CARRIED OUT. WILL ENDORSE CARE TO AM NURSE.
--- NOTE | 2017-05-09 07:38 | NUR ---
MS RN OPENING RECEIVED PATIENT A/OX4 RESTING WELL NO COMPLICATIONS NOTED AT THIS TIME. ALL NEEDS IN REACH, BED LOWERED AND LOCKED, BED ALARM ON. NO SOB, DIFFICULTY BREATHING OR PAIN AT THIS TIME. WILL ROUND Q2H OR LESS PER NEEDS.
[2017-05-09 08:00] VITALS: BP 116/76
[2017-05-09] MEDS: BLOOD SUGAR DIAGNOSTIC 1 EACH STRIP VI SCH ×4 (08:13→22:02)
[2017-05-09] MEDS: INSULIN ASPART HUMALOG/NOVOLOG 100 UNIT/ML CARTRIDGE SQ SCH ×3 (08:14→17:15)
[2017-05-09] MEDS: HYDROCODONE/APAP 10/325MG 1 EA TABLET PO PRN ×3 (08:14→23:05)
[2017-05-09] MEDS: FENOFIBRATE NANOCRYS (145 MG) 145 MG TABLET PO SCH (08:14)
[2017-05-09] MEDS: ASPIRIN EC 81 MG TABLET.DR PO SCH (08:14)
[2017-05-09] MEDS: ATORVASTATIN 10 MG TABLET PO SCH (08:14)
[2017-05-09] MEDS: METOPROLOL TARTRATE 50 MG TABLET PO SCH ×2 (08:16→17:07)
--- NOTE | 2017-05-09 11:30 | NUR ---
MS RN NOTES PER MALATHI ROSALES CONFIRM WITH ID IF REPEAT BLOOD CULTURE NEEDED. NO NEW ORDERS AT THIS TIME.
[2017-05-09] MEDS ORDERED: Magnesium 1GM/D5W 100ML PREMIX PIGGYBACK IV ONE (12:00)
[2017-05-09] MEDS ORDERED: Magnesium 1GM/D5W 100ML PREMIX 100 ML IV SCH (12:00)
[2017-05-09] MEDS: INSULIN REGULAR, HUMAN 100 UNIT/ML 3 ML VIAL SQ PRN ×2 (12:23→22:04)
[2017-05-09 16:00] VITALS: BP 124/85
--- NOTE | 2017-05-09 19:10 | NUR ---
MS RN CLOSING PATIENT STABLE. PAIN CONTROLLED WITH PRN MEDICATIONS AND NON PHARM MEASURES. ALL DUE MEDS GIVEN AND ALL NEEDS MET. CALL LIGHT IN REACH, BED LOWERED AND LOCKED. ALL NEEDS IN REACH. CARE ENDORSED TO MAYRA COX FOR MILA.
[2017-05-09 20:00] VITALS: BP 118/60
[2017-05-09] MEDS: INSULIN DETEMIR 100 UNIT/ML CARTRIDGE SQ SCH (22:04)
[2017-05-10] MEDS: HYDROCODONE/APAP 10/325MG 1 EA TABLET PO PRN ×4 (03:14→23:44)
[2017-05-10 04:00] VITALS: BP_SYST 121; BP_SYST 124; BP_DIAS 70
[2017-05-10] MEDS: CEFEPIME 1 GM in IV D5W 50 ML IV SCH ×2 (05:29→17:37)
--- NOTE | 2017-05-10 07:10 | NUR ---
MS RN NOTE: RECEIVED PT RESTING IN BED, EASILY AROUSABLE TO NAME. PT IS A&0X4, REPORTS GENERALIZED PAIN 5/10. NO MEDICATION FOR PAIN REQUESTED AT THIS TIME. BRENDA MIDLINE DRESSING CHANGED. NPO STATUS NOTED FOR SCHEDULED BILATERAL FOOT DEBRIDEMENT TODAY. HOB ELEVATED, BED LOW, LOCKED, X2 SIDE RAILS UP AND CALL LIGHT WITHIN REACH. WILL CONT TO MONITOR.
--- NOTE | 2017-05-10 07:35 | NUR ---
MS RN NOTE: CONSENT SIGNED BY PATIENT FOR BILATERAL FOOT DEBRIDEMENT. CONSENT PLACED IN CHART.
[2017-05-10] MEDS: BLOOD SUGAR DIAGNOSTIC 1 EACH STRIP VI SCH ×4 (07:56→21:53)
[2017-05-10 08:00] VITALS: BP 101/71
[2017-05-10] MEDS: INSULIN ASPART HUMALOG/NOVOLOG 100 UNIT/ML CARTRIDGE SQ SCH ×3 (09:00→16:14)
--- NOTE | 2017-05-10 09:00 | NUR ---
MS RN NOTE: 09 SCHEDULED 16 UNIT INSULIN NOVOLOG/HUMALOG HELD DUE TO BS 81 MG/DL. CHARGE NURSE AWARE.
--- NOTE | 2017-05-10 10:00 | NUR ---
RN NOTE: PATIENT SEEN BY MALATHI BOWEN AT BEDSIDE. AWARE OF BS 81MG/DL IN THE MORNING AND NPO STATUS FOR WOUND DEBRIDEMENT SCHEDULED AT 1300. START IV D5NS AT 50ML/HR. D/C IV WHEN PT RETURNS FROM SURGERY. Addendum: 05/10/17 at 1636 by FREDRICK OWEN RN CORRECTION: D/C IVF WHEN PT GOES TO OR.
[2017-05-10] MEDS ORDERED: IV D5/ 0.9% NACL 1,000 ML IV ONE (11:00)
--- NOTE | 2017-05-10 12:30 | NUR ---
MS RN NOTE: MIDLINE NURSE AT BEDSIDE.
--- NOTE | 2017-05-10 13:22 | NUR ---
MS RN NOTE: PATIENT TAKEN TO OR VIA HOSPITAL BED AND ACCOMPANIED BY OR STAFF.
[2017-05-10] MEDS ORDERED: MIDAZOLAM HCL 2 MG/2ML VIAL ONE (13:27)
[2017-05-10] MEDS ORDERED: FENTANYL PF 100MCG/2ML AMPUL ONE (13:27)
[2017-05-10] MEDS ORDERED: BUPIVACAINE 0.5 % PF 150 MG/30 ML VIAL ONE (13:51)
[2017-05-10] MEDS ORDERED: LIDOCAINE 1% INJ 50 ML MDV IJ ONE (13:51)
[2017-05-10] MEDS: FENOFIBRATE NANOCRYS (145 MG) 145 MG TABLET PO SCH (14:40)
--- NOTE | 2017-05-10 14:40 | NUR ---
MS RN NOTE: PATIENT BACK FROM OR. NO LONGER MS, TELE STATUS WITH HR 120S-150S. TELE MONITOR PLACED. NPO STATUS CANCELED. 0900 MEDICATIONS GIVEN. MALATHI ROSALES-SAMPLE CARD MAKER AWARE. NO NEW ORDERS.
[2017-05-10] MEDS: ASPIRIN EC 81 MG TABLET.DR PO SCH (14:42)
[2017-05-10] MEDS: ATORVASTATIN 10 MG TABLET PO SCH (14:42)
[2017-05-10] MEDS: METOPROLOL TARTRATE 50 MG TABLET PO SCH ×2 (14:42→18:42)
[2017-05-10 16:00] VITALS: BP 114/55
[2017-05-10] MEDS ORDERED: ANESTHESIA TRAY IN PYXIS 1 EA TRAY MC ONE (16:30)
--- NOTE | 2017-05-10 16:30 | NUR ---
MS RN NOTE: ACCUCHECK DONE AT 1613 POST MEAL WITH BS 191 MG/DL. 16 UNIT INSULIN NOVOLOG/HUMALOG GIVEN FROM SCHEDULED MEDS. WILL CONT TO MONITOR.
--- NOTE | 2017-05-10 18:59 | NUR ---
RETORT CONDENSER ATTENDANT NOTE: PATIENT RESCHEDULED FOR BILATERAL FOOT DEBRIDEMENT ON Sunday05/14/17 PER JAMES IN OR. DESTINEY MIDLINE PATENT AND INTACT. ON TELE MONITOR WITH AFIB 114. ORDERS CARRIED OUT. BED LOW, LOCKED, X 2 SIDE RAILS UP AND CALL LIGHT WITHIN REACH. WILL ENDORSE TO QA SPECIALIST NURSE FOR MILA.
--- NOTE | 2017-05-10 19:30 | NUR ---
MATERIAL SCHEDULER: PT RECEIVED A/O X3. ON R/A WT NO ACUTE DISTRESS. NO C/O PAIN OR EVIDENCE OF DISCOMFORT. STILL UNCONTROLLED A. FIB ON TELE MONITOR WT HR IN THE 120s-130s. PER DAY SHIFT RN HAS BEEN MADE AWARE AND WT NO NEW ORDERS. AT BEDSIDE. PT. IS ASYMPTOMATIC AND ABLE TO AMBULATE AROUND ROOM AND RESTROOM. BILAT. FOOT DRESSING CLEAN, DRY AND INTACT. SAFETY PRECAUTION NOTED. WILL CONTINUE TO MONITOR.
[2017-05-10 20:00] VITALS: BP 135/73
[2017-05-10] MEDS: *INSULIN REGULAR(HUMULIN R)HUM 100 UNIT/ML VIAL SQ PRN (21:56)
[2017-05-10] MEDS: INSULIN DETEMIR 100 UNIT/ML CARTRIDGE SQ SCH (21:57)
[2017-05-11] VITALS (7 sets, daily range): BP systolic 99–141; BP diastolic 57–87
--- NOTE | 2017-05-11 01:05 | NUR ---
STOCK GRADER: PT NOTED HR IN THE 140S-150s. NO ACUTE DISTRESS. WALKING AROUND ROOM, GOING THROUGH HIS BELONGINGS AND BEING RESTLESS. PT TEACHING DONE TO STAY IN BED DUE TO HIGH HR. PT SAT DOWN ON BED BUT CONTINUED TO BE RESTLESS AND MOVE AROUND CHANGING CLOTHES AND COMBING HAIR. SAFETY PRECAUTION NOTED AT ALL TIMES.
--- NOTE | 2017-05-11 02:00 | NUR ---
ENTRY LEVEL SOFTWARE DEVELOPER: HR IN THE 120s NOW. PT IS IN BED WATCHING TV.
--- NOTE | 2017-05-11 04:00 | NUR ---
CHANGE ADVISOR: PT CALM IN BED. HR IMPROVED AT 111. SPONGE BATH GIVEN WT STANDBY ASSISTANCE.
[2017-05-11] MEDS ORDERED: IV NS 0.9% 250 ML IV PRN (05:30)
[2017-05-11] MEDS: CEFEPIME 1 GM in IV D5W 50 ML IV SCH ×2 (05:33→16:23)
[2017-05-11 06:43] LABS: BASOPHILS # (AUTO) 0.1 /CMM (0.0-0.2); BASOPHILS % (AUTO) 0.7 % (0.0-2.0); EOSINOPHILS # (AUTO) 0.3 /CMM (0.0-0.7); EOSINOPHILS % (AUTO) 3.9 % (0.0-6.0); HEMATOCRIT 32 % (39-51); HEMOGLOBIN 10.3 g/dL (13.5-17.5); LYMPHOCYTES # (AUTO) 2.4 /CMM (0.8-4.8); LYMPHOCYTES % (AUTO) 28.2 % (20.0-44.0); MEAN CORPUSCULAR HEMOGLOBIN 23 PG (26.0-33.0); MEAN CORPUSCULAR HGB CONC 32 g/dl (31.0-36.0); MEAN CORPUSCULAR VOLUME 72 fL (80-96); MONOCYTES # (AUTO) 0.7 /CMM (0.1-1.30); MONOCYTES % (AUTO) 8.4 % (2.0-12.0); NEUTROPHILS # (AUTO) 5.1 /CMM (1.8-8.9); NEUTROPHILS % (AUTO) 58.8 % (43.0-81.0); PLATELET COUNT (AUTO) 433 /CMM (150-450); RDW COEFFICIENT OF VARIATION 17.7 (11.5-15.0); RED BLOOD CELL COUNT(AUTO) 4.47 MIL/uL (4.5-6.0); WHITE BLOOD COUNT (AUTO) 8.6 K/uL (4.3-11.0)
--- NOTE | 2017-05-11 06:50 | NUR ---
SHEET SORTER: REMAINED A/O X 3. NO ACUTE DISTRESS, NO C/O PAIN. ALL NEEDS MET. SAFETY PRECAUTION NOTED AT ALL TIMES.
[2017-05-11 07:02] LABS: CALCIUM, SERUM 8.9 mg/dL (8.5-10.1); CREATININE 1.1 mg/dL (0.6-1.3); MAGNESIUM 1.7 mg/dL (1.8-2.4); POTASSIUM 4.9 mmol/L (3.5-5.1)
[2017-05-11] MEDS: BLOOD SUGAR DIAGNOSTIC 1 EACH STRIP VI SCH ×4 (08:19→21:05)
[2017-05-11 08:32] LABS: BAND % (MANUAL) 2 % (0.0-5.0); EOSINOPHILS % (MANUAL) 4 % (0-4); LYMPHOCYTES % (MANUAL) 19 % (16-48); MONOCYTES % (MANUAL) 12 % (0-11.0); NEUTROPHILS % (MANUAL) 63 (42-76)
[2017-05-11] MEDS: ATORVASTATIN 10 MG TABLET PO SCH (08:43)
[2017-05-11] MEDS: FENOFIBRATE NANOCRYS (145 MG) 145 MG TABLET PO SCH (08:43)
[2017-05-11] MEDS: METOPROLOL TARTRATE 50 MG TABLET PO SCH ×2 (08:43→16:22)
[2017-05-11] MEDS: DILTIAZEM HCL 30 MG TABLET PO SCH ×3 (08:43→21:05)
[2017-05-11] MEDS: ASPIRIN EC 81 MG TABLET.DR PO SCH (08:44)
[2017-05-11] MEDS: INSULIN ASPART HUMALOG/NOVOLOG 100 UNIT/ML CARTRIDGE SQ SCH ×3 (08:47→16:29)
[2017-05-11] MEDS: HYDROCODONE/APAP 10/325MG 1 EA TABLET PO PRN ×3 (08:49→23:25)
[2017-05-11] MEDS: Magnesium 1GM/D5W 100ML PREMIX 100 ML IV SCH ×2 (11:39→13:07)
[2017-05-11] MEDS ORDERED: DILTIAZEM HCL 30 MG TABLET PO SCH (12:00)
--- NOTE | 2017-05-11 19:45 | NUR ---
BONE WORKER INITIAL NOTE PT RECEIVED IN NO ACUTE DISTRESS. PT IS A/O X4 AND ABLE TO MAKE NEEDS KNOWN. PT HAS A-FIB 100-110 UNCONTROLLED. PT CAN GO TO BATHROOM OR USE URINAL. BLE WOUNDS TO BE DRESSED AND CLEANSED WITH BETADINE/KERLIX. PT HAS A DESTINEY MIDLINE 18G THAT IS CLEAN DRY AND INTACT.COMFORT AND SAFETY MEASURES TO BE ENSURED. WILL CONTINUE TO MONITOR FOR ANY CHANGES.
[2017-05-11] MEDS: INSULIN DETEMIR 100 UNIT/ML CARTRIDGE SQ SCH (21:06)
[2017-05-12] VITALS (7 sets, daily range): BP systolic 100–131; BP diastolic 57–74
[2017-05-12] MEDS: DILTIAZEM HCL 30 MG TABLET PO SCH ×4 (03:02→21:15)
[2017-05-12] MEDS: HYDROCODONE/APAP 10/325MG 1 EA TABLET PO PRN ×3 (04:57→22:04)
[2017-05-12] MEDS: CEFEPIME 1 GM in IV D5W 50 ML IV SCH ×2 (05:00→17:31)
[2017-05-12 06:43] LABS: CALCIUM, SERUM 9.1 mg/dL (8.5-10.1); CREATININE 1.3 mg/dL (0.6-1.3); MAGNESIUM 1.9 mg/dL (1.8-2.4); POTASSIUM 5.3 mmol/L (3.5-5.1)
--- NOTE | 2017-05-12 07:30 | NUR ---
RIG MECHANIC INITIAL NOTE PT RECEIVED IN NO ACUTE DISTRESS. PT IS A/O X4 AND ABLE TO MAKE NEEDS KNOWN. PT HAS A-FIB 100-110 UNCONTROLLED. PT USES BRP AND URINAL. DESTINEY MIDLINE 18G CDI.COMFORT AND SAFETY MEASURES TO BE ENSURED. WILL CONTINUE TO MONITOR FOR ANY CHANGES.
[2017-05-12] MEDS: BLOOD SUGAR DIAGNOSTIC 1 EACH STRIP VI SCH ×4 (08:01→22:28)
[2017-05-12] MEDS: ASPIRIN EC 81 MG TABLET.DR PO SCH (08:48)
[2017-05-12] MEDS: FENOFIBRATE NANOCRYS (145 MG) 145 MG TABLET PO SCH (08:49)
[2017-05-12] MEDS: ATORVASTATIN 10 MG TABLET PO SCH (08:50)
[2017-05-12] MEDS: METOPROLOL TARTRATE 50 MG TABLET PO SCH ×2 (08:50→17:31)
[2017-05-12] MEDS: INSULIN ASPART HUMALOG/NOVOLOG 100 UNIT/ML CARTRIDGE SQ SCH ×3 (08:51→17:33)
[2017-05-12] MEDS ORDERED: SODIUM POLYSTYRENE SULFONATE 15 G/60 ML BOTTLE PO ONE (13:30)
--- NOTE | 2017-05-12 19:03 | NUR ---
pt in stable condition.no s/s of distress breathing even and unlabored.all m.d orders noted and carried out.
--- NOTE | 2017-05-12 19:30 | NUR ---
Received patient in the bed.No unusual signs or symptoms observed or reported,no signs of discomfort or distress.Telemetry attach,recording A-fib uncontrolled,especially when patient sits at side of bed or walks around otherwise it occasionally ventures over 100 bpm while resting.
--- NOTE | 2017-05-12 22:06 | NUR ---
Requested something for pain.Medicated with Almyra 1 tab 10 mg,tolerated well.
[2017-05-12] MEDS: INSULIN DETEMIR 100 UNIT/ML CARTRIDGE SQ SCH (22:36)
[2017-05-12] MEDS: INSULIN REGULAR, HUMAN 100 UNIT/ML 3 ML VIAL SQ PRN (22:39)
--- NOTE | 2017-05-12 23:00 | NUR ---
Resting quietly,no problems no unusual signs or symptoms observed or reported
[2017-05-13] VITALS: BP 103/67
--- NOTE | 2017-05-13 02:31 | NUR ---
Change dressing on patient fool,tolerated well.
[2017-05-13 04:00] VITALS: BP 128/81
[2017-05-13] MEDS: DILTIAZEM HCL 30 MG TABLET PO SCH ×4 (04:41→20:54)
[2017-05-13] MEDS: CEFEPIME 1 GM in IV D5W 50 ML IV SCH ×2 (05:27→17:14)
--- NOTE | 2017-05-13 06:35 | NUR ---
Resting quietly,no problems
--- NOTE | 2017-05-13 07:15 | NUR ---
SAMPLE TAILOR OPENING RECEIVED PATIENT A/OX4 DENIES SOB, DIFFICULTY BREATHING AND STATES GENERALIZED CHRONIC PAIN WHICH HE IS ASKING FOR NORCO WITH AM MEDICATIONS. PATIENT INDEPENDENT WITH ADLS NO ASSISTANCE NEEDED. ALL NEEDS IN REACH, RE EDUCATED PATIENT ON NWB STATUS. TELE AFIB 105-115 AT THIS TIME; PATIENT HAS NO COMPLAINTS. DRESSINGS INTACT AND WILL CHANGE ORDERED TODAY. WILL ROUND Q2H OR LESS PER NEEDS
[2017-05-13 08:00] VITALS: BP 104/69
[2017-05-13] MEDS: FENOFIBRATE NANOCRYS (145 MG) 145 MG TABLET PO SCH (08:10)
[2017-05-13] MEDS: HYDROCODONE/APAP 10/325MG 1 EA TABLET PO PRN ×3 (08:10→20:53)
[2017-05-13] MEDS: ATORVASTATIN 10 MG TABLET PO SCH (08:10)
[2017-05-13] MEDS: BLOOD SUGAR DIAGNOSTIC 1 EACH STRIP VI SCH ×4 (08:11→22:00)
[2017-05-13] MEDS: ASPIRIN EC 81 MG TABLET.DR PO SCH (08:11)
[2017-05-13] MEDS: INSULIN ASPART HUMALOG/NOVOLOG 100 UNIT/ML CARTRIDGE SQ SCH ×3 (08:12→17:18)
--- NOTE | 2017-05-13 08:15 | NUR ---
DRINK BOX MECHANIC NOTES AT THIS TIME HOLDING LOPRESSOR PATIENT BP LOW. HR STILL ELEVATED. WILL RE CHECK BLOOD PRESSURE
[2017-05-13] MEDS ORDERED: LORAZEPAM INJ 2 MG/ML VIAL IV PRN (10:30)
--- NOTE | 2017-05-13 11:15 | NUR ---
MS RN NOTES GRANITE SETTER AT BEDSIDE. UPDATED ON PATIENT UPDATED HR AND BP. PATIENT STABLE AT THIS TIME
[2017-05-13] MEDS: METOPROLOL TARTRATE 50 MG TABLET PO SCH ×2 (11:34→17:13)
[2017-05-13] MEDS: INSULIN REGULAR, HUMAN 100 UNIT/ML 3 ML VIAL SQ PRN ×2 (11:51→17:19)
[2017-05-13 12:00] VITALS: BP 142/73
--- NOTE | 2017-05-13 12:17 | NUR ---
MS RN NOTES CONFIRMED WITH DR TRIVEDI SALES LEDGER CLERK TO HAVE PATIENT FROM MIDNIGHT NPO EXCEPT MEDS.
[2017-05-13 16:00] VITALS: BP 99/60
--- NOTE | 2017-05-13 19:00 | NUR ---
MS RN CLOSING PATIENT STABLE NO COMPLICATIONS. DRESSINGS INTACT. ALL DUE MEDS GIVEN ALL NEEDS MET. PATIENT NON COMPLIANT WITH NWB STATUS. RE EDUCATED AND PATIENT STATES UNDERSTANDING. PATIENT STATES NO NEEDS. ALL NEEDS IN REACH, BED LOWERED AND LOCKED, RAILS UPX3 FOR SAFETY WITH BED ALARM ON. CARE ENDORSED TO RN FOR MILA
--- NOTE | 2017-05-13 19:35 | NUR ---
INFANT CAREGIVER INITIAL NOTE PT RECEIVED IN NO ACUTE DISTRESS. PT IS A/O X4 AND ABLE TO MAKE NEEDS KNOWN. PT HAS A-FIB 100-110 UNCONTROLLED. PT CAN GO TO BATHROOM OR USE URINAL. BLE WOUNDS TO BE DRESSED AND CLEANSED WITH BETADINE/KERLIX. PT HAS LFA 22G THAT IS CLEAN DRY AND INTACT.COMFORT AND SAFETY MEASURES TO BE ENSURED. WILL CONTINUE TO MONITOR FOR ANY CHANGES. PT TO BE NPO AD MIDNIGHT DUE TO BLE WOUND DEBRIDEMENT.
[2017-05-13 20:00] VITALS: BP 109/55
[2017-05-13] MEDS: INSULIN DETEMIR 100 UNIT/ML CARTRIDGE SQ SCH (22:00)
[2017-05-14] MEDS: HYDROCODONE/APAP 10/325MG 1 EA TABLET PO PRN ×5 (01:19→20:36)
[2017-05-14] MEDS: DILTIAZEM HCL 30 MG TABLET PO SCH ×4 (03:57→20:37)
[2017-05-14 04:00] VITALS: BP 142/53
[2017-05-14] MEDS: CEFEPIME 1 GM in IV D5W 50 ML IV SCH ×2 (05:29→17:00)
[2017-05-14 06:40] LABS: BASOPHILS # (AUTO) 0.1 /CMM (0.0-0.2); BASOPHILS % (AUTO) 0.9 % (0.0-2.0); EOSINOPHILS # (AUTO) 0.3 /CMM (0.0-0.7); EOSINOPHILS % (AUTO) 3.8 % (0.0-6.0); HEMATOCRIT 32 % (39-51); HEMOGLOBIN 9.9 g/dL (13.5-17.5); LYMPHOCYTES # (AUTO) 2.2 /CMM (0.8-4.8); LYMPHOCYTES % (AUTO) 25.1 % (20.0-44.0); MEAN CORPUSCULAR HEMOGLOBIN 23 PG (26.0-33.0); MEAN CORPUSCULAR HGB CONC 31 g/dl (31.0-36.0); MEAN CORPUSCULAR VOLUME 73 fL (80-96); MONOCYTES # (AUTO) 0.8 /CMM (0.1-1.30); MONOCYTES % (AUTO) 8.8 % (2.0-12.0); NEUTROPHILS # (AUTO) 5.3 /CMM (1.8-8.9); NEUTROPHILS % (AUTO) 61.4 % (43.0-81.0); PLATELET COUNT (AUTO) 326 /CMM (150-450); RDW COEFFICIENT OF VARIATION 17.8 (11.5-15.0); RED BLOOD CELL COUNT(AUTO) 4.32 MIL/uL (4.5-6.0); WHITE BLOOD COUNT (AUTO) 8.6 K/uL (4.3-11.0)
[2017-05-14 07:10] LABS: CALCIUM, SERUM 8.8 mg/dL (8.5-10.1); CREATININE 1.3 mg/dL (0.6-1.3); POTASSIUM 4.9 mmol/L (3.5-5.1)
--- NOTE | 2017-05-14 07:30 | NUR ---
PROCUREMENT CLERK OPENING RECEIVED PATIENT A/OX4 DENIES SOB, DIFFICULTY BREATHING AND STATES GENERALIZED CHRONIC PAIN IS TOLERABLE AT THIS TIME. PATIENT INDEPENDENT WITH ADLS NO ASSISTANCE NEEDED. RE EDUCATED ON NWB STATUS. ALL NEEDS IN REACH. TELE AFIB 107 AT THIS TIME; PATIENT HAS NO COMPLAINTS. DRESSINGS INTACT AND WILL CHANGE ORDERED TODAY. WILL ROUND Q2H OR LESS PER NEEDS. PATIENT IS NPO AT THIS TIME AND STATES UNDERSTANDING. PATIENT ASKING WHEN PROCEDURE WILL BE; WILL F/U
[2017-05-14 08:00] VITALS: BP 131/76
--- NOTE | 2017-05-14 08:00 | NUR ---
MS RN NOTES NOTIFIED PATIENT PROCEDURE IS SCHEDULED AT [address] RAZO. PATIENT IS UPSET ABOUT THIS AND WILL NOT WAIT THAT LONG NOT EATING. NOTIFIED DR TO COME SPEAK WITH PATIENT PATIENT IS TALKING ABOUT GOING AMA IF THIS CANNOT BE DONE SOONER.
[2017-05-14 08:11] LABS: INR 1.1 (0.87-1.13); PROTHROMBIN TIME 11.5 SECS (9.5-12.7)
--- NOTE | 2017-05-14 08:15 | NUR ---
MS RN NOTES DR RAZO AT BEDSIDE. EDUCATING PATIENT ON NPO PROCESS AND ON IMPORTANCE OF DEBRIDEMENT. PATIENT CONTINUES TO STATE HE WILL NOT WAIT; AT THIS TIME PATIENT REFUSING DEBRIDEMENT. DR AWARE AND STATES PATIENT CAN EAT AND WE WILL POSSIBLY HAVE A DEBRIDEMENT SUNDAY MORNING FOR PATIENT.
[2017-05-14] MEDS: FENOFIBRATE NANOCRYS (145 MG) 145 MG TABLET PO SCH (08:27)
[2017-05-14] MEDS: ASPIRIN EC 81 MG TABLET.DR PO SCH (08:28)
[2017-05-14] MEDS: ATORVASTATIN 10 MG TABLET PO SCH (08:28)
[2017-05-14] MEDS: METOPROLOL TARTRATE 50 MG TABLET PO SCH ×2 (08:28→16:59)
[2017-05-14] MEDS: BLOOD SUGAR DIAGNOSTIC 1 EACH STRIP VI SCH ×4 (08:28→21:47)
[2017-05-14] MEDS: INSULIN ASPART HUMALOG/NOVOLOG 100 UNIT/ML CARTRIDGE SQ SCH ×3 (08:29→17:00)
[2017-05-14 09:00] VITALS: BP 131/76
--- NOTE | 2017-05-14 11:00 | NUR ---
MS RN NOTES DR HERNANDEZ AWARE OF PATIENT REFUSAL TO HAVE SURGERY TODAY.
[2017-05-14] MEDS: INSULIN REGULAR, HUMAN 100 UNIT/ML 3 ML VIAL SQ PRN (12:20)
--- NOTE | 2017-05-14 13:00 | NUR ---
MS RN NOTES NOTIFIED MALATHI ROSALES PATIENT IS REFUSING TO GO TO SNF AND STATES HE HAS EVERYTHING AT HOME INCLUDING ELECTRIC CHAIRS AND HOME HEALTH NURSES TO DO DRESSING CARE. NOTIFIED CASE MANAGEMENT PER MALATHI REQUEST TO SET UP HOME IV AX ID REQUESTS. PER MALATHI INSERT MIDLINE TO PREP FOR DC. NOTIFIED NURSING SUPERVISOR OPERATIONS NEEDING MIDLINE PER REQUEST
[2017-05-14 16:00] VITALS: BP 109/61
--- NOTE | 2017-05-14 18:58 | NUR ---
MS RN CLOSING PATIENT STABLE NO COMPLICATIONS NOTED. ALL DUE MEDS GIVEN AND ALL NEEDS MET. PATIENT NEEDS IN REACH, REMINDED OF NWB STATUS. CARE WILL BE ENDORSED TO RN FOR MILA
--- NOTE | 2017-05-14 19:59 | NUR ---
RN MS OPENING NOTE PT IN NO ACUTE DISTRESS AT THIS TIME. PT IS A/O X4 AND ABLE TO MAKE NEEDS KNOWN. PT IS ABLE TO WALK EVEN WITH INSTRUCTIONS TO LIMIT MUCH POSSIBLE DUE TO BLE DIABETIC WOUNDS. BREATHING IS WNL WITH ADEQUATE CHEST RISE FALL. SAFETY AND COMFORT MEASURES TO BE PLACED DURING THE SHIFT. WILL CONTINUE TO MONITOR FOR ANY CHANGES.
[2017-05-14 20:00] VITALS: BP 103/60
--- NOTE | 2017-05-14 20:01 | NUR ---
PT HAS NEW BRENDA MIDLINE SINCE D/C SOON WITH LONG ATB USE.
[2017-05-14] MEDS: INSULIN DETEMIR 100 UNIT/ML CARTRIDGE SQ SCH (21:50)
[2017-05-15] MEDS: HYDROCODONE/APAP 10/325MG 1 EA TABLET PO PRN ×4 (01:05→18:00)
[2017-05-15] MEDS: DILTIAZEM HCL 30 MG TABLET PO SCH ×3 (03:24→15:35)
[2017-05-15 04:00] VITALS: BP 125/98
[2017-05-15] MEDS: CEFEPIME 1 GM in IV D5W 50 ML IV SCH ×2 (05:41→17:35)
--- NOTE | 2017-05-15 07:37 | NUR ---
BROOMCORN THRESHER OPENING RECEIVED PATIENT A/OX4 DENIES SOB, DIFFICULTY BREATHING AND STATES GENERALIZED CHRONIC PAIN AND REQUESTING PAIN MEDICATION NORCO WITH AM MEDICATIONS. PATIENT APPEARS COMFORTABLE STATES NO OTHER NEEDS. PATIENT INDEPENDENT WITH ADLS NO ASSISTANCE NEEDED. RE EDUCATED ON NWB STATUS. ALL NEEDS IN REACH. TELE AFIB 107 AT THIS TIME; PATIENT HAS NO COMPLAINTS. DRESSINGS INTACT AND WILL CHANGE ORDERED TODAY. WILL ROUND Q2H OR LESS PER NEEDS.
[2017-05-15] MEDS: BLOOD SUGAR DIAGNOSTIC 1 EACH STRIP VI SCH ×3 (07:47→17:57)
[2017-05-15 08:00] VITALS: BP 135/78
[2017-05-15] MEDS: FENOFIBRATE NANOCRYS (145 MG) 145 MG TABLET PO SCH (08:03)
[2017-05-15] MEDS: ATORVASTATIN 10 MG TABLET PO SCH (08:03)
[2017-05-15] MEDS: METOPROLOL TARTRATE 50 MG TABLET PO SCH ×2 (08:03→17:35)
[2017-05-15] MEDS: ASPIRIN EC 81 MG TABLET.DR PO SCH (08:03)
[2017-05-15] MEDS: INSULIN ASPART HUMALOG/NOVOLOG 100 UNIT/ML CARTRIDGE SQ SCH ×3 (08:05→17:00)
--- NOTE | 2017-05-15 10:00 | NUR ---
MS RN NOTES CALLED PHARMACY TO NOTIFY WE NEED MORE NOVOLOG
[2017-05-15] MEDS ORDERED: APIX5TAB PO (14:56)
[2017-05-15] MEDS ORDERED: METO50TA3 PO (14:56)
[2017-05-15] MEDS ORDERED: CEFE1PIG3 IV (14:56)
[2017-05-15 16:00] VITALS: BP_SYST 121; BP_SYST 128; BP_DIAS 81
[2017-05-15 17:35] VITALS: BP 126/77
--- NOTE | 2017-05-15 18:01 | NUR ---
ms rn notes called pharmacy spoke with luis and reminded we are still needing the novolog. stated they will send
--- NOTE | 2017-05-15 18:36 | NUR ---
MS MULTI SITE LEASING CONSULTANT PATIENT LEFT IN STABLE CONDITION NO COMPLICATIONS NOTED. PATIENT AND EDUCATED ON DC MATERIAL AND RX, NEW MEDICATIONS AND STATED UNDERSTANDING. IV PERIPHERAL REMOVED AND PRESSURE AND DRESSING APPLIED NO BLEEDING NOTED. MIDLINE RIGHT UPPER ARM IN PLACE AND COVERED WITH ARM SLEEVE TO HELP PROTECT. PATIENT SIGNED DC MATERIAL AND ALL BELONGINGS ACCOUNTED FOR AND SIGNED. PATIENT DRESSINGS INTACT. PER NAOMY CM IV AX FOR HOME AND HOME HEALTH ARE SET UP FOR PATIENT. PATIENT ASSISTED TO PRIVATE VEHICLE WITH FARHAD ALEJANDRO AND . PATIENT LEFT IN STABLE CONDITION
== END 2017-05-15 18:36 | disposition home health service (06) | DRG 853 ==
LOC: ER 14:11 → ICUOV 15:38 → TELE-TD 05-04 13:51 → TELE1 05-04 17:11 → TELE-TD 05-04 17:12 → TELE1 05-06 07:29 → MEDSG1 05-07 16:51 → TELE1 05-10 14:38 → MEDSG1 05-13 10:32
PROVIDERS: ADMIT Internal Medicine; ATTEND Internal Medicine
PROC: 0QBM0ZZ Excision of Left Tarsal, Open Approach (ICD-10-PCS; 2017-05-04)
PROC: 0KBV0ZZ Excision of Right Foot Muscle, Open Approach (ICD-10-PCS; 2017-05-04)
PROC: 05H533Z Insertion of Infusion Device into Right Subclavian Vein, Percutaneous Approach (ICD-10-PCS; 2017-05-04)
PROC: B546ZZA Ultrasonography of Right Subclavian Vein, Guidance (ICD-10-PCS; 2017-05-04)
PROC: 05H633Z Insertion of Infusion Device into Left Subclavian Vein, Percutaneous Approach (ICD-10-PCS; 2017-05-10)
PROC: 0KBV0ZZ Excision of Right Foot Muscle, Open Approach (ICD-10-PCS; principal; 2017-05-11)
PROC: 05HB33Z Insertion of Infusion Device into Right Basilic Vein, Percutaneous Approach (ICD-10-PCS; 2017-05-14)
DX: A41.9 Sepsis, unspecified organism (principal); E43 Unspecified severe protein-calorie malnutrition; J96.01 Acute respiratory failure with hypoxia; N17.0 Acute kidney failure with tubular necrosis; I96 Gangrene, not elsewhere classified; D68.59 Other primary thrombophilia; E11.21 Type 2 diabetes mellitus with diabetic nephropathy; E11.40 Type 2 diabetes mellitus with diabetic neuropathy, unspecified; E87.1 Hypo-osmolality and hyponatremia; E11.52 Type 2 diabetes mellitus with diabetic peripheral angiopathy with gangrene; M86.8X7 Other osteomyelitis, ankle and foot; L02.611 Cutaneous abscess of right foot; L03.115 Cellulitis of right lower limb; E11.22 Type 2 diabetes mellitus with diabetic chronic kidney disease; I48.0 Paroxysmal atrial fibrillation; J44.9 Chronic obstructive pulmonary disease, unspecified; E78.5 Hyperlipidemia, unspecified; E83.42 Hypomagnesemia; K21.9 Gastro-esophageal reflux disease without esophagitis; N20.0 Calculus of kidney; N18.3 Chronic kidney disease, stage 3 (moderate); Z87.891 Personal history of nicotine dependence; Z85.46 Personal history of malignant neoplasm of prostate; I25.10 Atherosclerotic heart disease of native coronary artery without angina pectoris; E11.65 Type 2 diabetes mellitus with hyperglycemia; Z79.4 Long term (current) use of insulin; M62.50 Muscle wasting and atrophy, not elsewhere classified, unspecified site; E88.09 Other disorders of plasma-protein metabolism, not elsewhere classified; Z68.34 Body mass index [BMI] 34.0-34.9, adult; E11.69 Type 2 diabetes mellitus with other specified complication; E11.621 Type 2 diabetes mellitus with foot ulcer; L97.519 Non-pressure chronic ulcer of other part of right foot with unspecified severity; L97.529 Non-pressure chronic ulcer of other part of left foot with unspecified severity; R65.20 Severe sepsis without septic shock; B96.5 Pseudomonas (aeruginosa) (mallei) (pseudomallei) as the cause of diseases classified elsewhere; B95.1 Streptococcus, group B, as the cause of diseases classified elsewhere; Z79.899 Other long term (current) drug therapy; M10.9 Gout, unspecified; I12.9 Hypertensive chronic kidney disease with stage 1 through stage 4 chronic kidney disease, or unspecified chronic kidney disease; E87.5 Hyperkalemia
CPT/HCPCS: 36415; 36569; 71010-TC; 73718-TC; 80048-TC; 80053-TC; 80076-TC; 80202-TC; 82962-TC; 83605-TC; 83735-TC; 83880; 84100-TC; 84484-TC; 85025-TC; 85610-TC; 85652-TC; 85730-TC; 86850-TC; 87040-TC; 87070-TC; 87081-TC; 87086-TC; 87186-TC; 93307-TC; 93970-TC; A4216; A4606; A6253; A6402; A6403; A6407; J0282; J0692; J1815; J1940; J2185; J2250; J2543; J2704; J3010; J3370; J3475; J3490; J7030; J7040; J7042; J7050; J7060; Q2036; Z7610

== ENCOUNTER 2017-05-24 10:44 | Outpatient (CLI) | payer MEDICARE, OTHER ==
[~2017-05-24 10:44] MED LIST changes: -ACET-868 PO; -ACID1TAB12 PO; -ALLA266C2 TP; -ALLO100T PO; +APIX5TAB PO; -ASCO500T9 PO; -ATEN25TA PO; +ATOR10TA PO; +CEFE1PIG3 IV; +DILT240C2 PO; +FENO160T PO; -INSU100V11 SQ; +INSU100V27 SQ; -INSU100V3 SQ; -MAG30ORA PO; -MELA3TAB PO; +METF500T4 PO; +METO50TA3 PO; -OMEP-99 PO; -SIMV20TA6 PO; -SODI473S8 MC; -VANC1VIA IV; -ZINC220C8 PO
== END 2017-05-24 23:59 | disposition home health service (06) ==
LOC: WOU 10:44
PROVIDERS: ATTEND Podiatrist Foot & Ankle Surgery
DX: E11.621 Type 2 diabetes mellitus with foot ulcer (principal); L97.513 Non-pressure chronic ulcer of other part of right foot with necrosis of muscle; Z91.19 Patient's noncompliance with other medical treatment and regimen; T87.89 Other complications of amputation stump; Z79.4 Long term (current) use of insulin; L97.524 Non-pressure chronic ulcer of other part of left foot with necrosis of bone; E11.42 Type 2 diabetes mellitus with diabetic polyneuropathy; Z89.422 Acquired absence of other left toe(s); Z89.421 Acquired absence of other right toe(s); Z87.891 Personal history of nicotine dependence
CPT/HCPCS: 11042; 11043; 11045; 11046; A6253; A6402

== ENCOUNTER 2017-05-29 13:48 | Inpatient (IN) | payer MEDICARE, OTHER ==
[~2017-05-29] VITALS: Ht 193 cm; Wt 127.9 kg
--- NOTE | 2017-05-29 14:07 | NUR ---
PER PATIENT HE WAS ASKED TO GO TO ED FOR PRE OP WORK UP FOR HIS BOTH FEET WOUNDS SURGERY ON SUNDAY. PATIENT HAS NO CO AT THIS TIME., BOTH FEET NOTED WITH OPEN WOUND, VSS.
--- NOTE | 2017-05-29 14:12 | NUR ---
CALLED [facility] AND THEY WILL NOTIFY ELVIRA HAIRSTON (PATIENT'S PHYSICIAN)
[2017-05-29 15:05] LABS: BASOPHILS # (AUTO) 0.1 /CMM (0.0-0.2); BASOPHILS % (AUTO) 0.6 % (0.0-2.0); EOSINOPHILS # (AUTO) 0.4 /CMM (0.0-0.7); EOSINOPHILS % (AUTO) 3.7 % (0.0-6.0); HEMATOCRIT 33 % (39-51); HEMOGLOBIN 10.5 g/dL (13.5-17.5); LYMPHOCYTES % (AUTO) 17.9 % (20.0-44.0); MEAN CORPUSCULAR HEMOGLOBIN 23 PG (26.0-33.0); MEAN CORPUSCULAR HGB CONC 32 g/dl (31.0-36.0); MEAN CORPUSCULAR VOLUME 73 fL (80-96); MONOCYTES # (AUTO) 0.8 /CMM (0.1-1.30); MONOCYTES % (AUTO) 7.3 % (2.0-12.0); NEUTROPHILS # (AUTO) 7.8 /CMM (1.8-8.9); NEUTROPHILS % (AUTO) 70.5 % (43.0-81.0); PLATELET COUNT (AUTO) 352 /CMM (150-450); RDW COEFFICIENT OF VARIATION 17.8 (11.5-15.0); RED BLOOD CELL COUNT(AUTO) 4.48 MIL/uL (4.5-6.0); WHITE BLOOD COUNT (AUTO) 11.1 K/uL (4.3-11.0)
[2017-05-29 15:15] LABS: CALCIUM, SERUM 9.4 mg/dL (8.5-10.1); CARBON DIOXIDE 26 mmol/L (21-32); CHLORIDE 104 mmol/L (98-107); CREATININE 1.2 mg/dL (0.6-1.3); GLUCOSE 101 mg/dL (74-106); POTASSIUM 4.4 mmol/L (3.5-5.1); SODIUM SERUM 137 mmol/L (136-145); UREA NITROGEN, BLOOD 25 mg/dL (7-18)
[2017-05-29 15:19] LABS: INR 1.11 (0.87-1.13); PROTHROMBIN TIME 11.5 SECS (9.5-12.7)
[2017-05-29 15:21] LABS: ALANINE AMINOTRANSFERASE 32 U/L (12-78); ALBUMIN 2.9 g/dL (3.4-5.0); ALKALINE PHOSPHATASE 81 U/L (46-116); ASPARTATE AMINOTRANSFERASE 30 U/L (15-37); BILIRUBIN,DIRECT 0.1 mg/dL (0.0-0.2); BILIRUBIN,TOTAL 0.3 mg/dL (0.2-1.0); TOTAL PROTEIN, SERUM 7.4 g/dL (6.4-8.2)
[2017-05-29] MEDS ORDERED: ALLO100T PO (15:37)
[2017-05-29] MEDS ORDERED: APIX5TAB PO (15:37)
[2017-05-29] MEDS ORDERED: CARV25TA2 PO (15:37)
[2017-05-29] MEDS ORDERED: METO50TA3 PO (15:37)
[2017-05-29] MEDS ORDERED: LISI40TA4 PO (15:37)
[2017-05-29] MEDS ORDERED: DOXY100C2 PO (15:37)
[2017-05-29] MEDS ORDERED: ACAR25TA2 PO (15:37)
--- NOTE | 2017-05-29 15:38 | NUR ---
panel on-call paged
[2017-05-29] MEDS ORDERED: IV NS 0.9% 1,000 ML BAG IV ONE (16:00)
[2017-05-29] MEDS ORDERED: VANCOMYCIN 1 GM in IV D5W 250 ML IV ONE (16:00)
[2017-05-29] MEDS ORDERED: PIPERACILLIN /TAZOBACTAM 3.375 G in IV D5W 50 ML IV ONE (16:00)
[2017-05-29 16:14] LABS: LYMPHOCYTES % (MANUAL) 16 % (16-48); MONOCYTES % (MANUAL) 8 % (0-11.0); NEUTROPHILS % (MANUAL) 74 (42-76)
[2017-05-29 16:19] LABS: EOSINOPHILS % (MANUAL) 2 % (0-4)
--- NOTE | 2017-05-29 16:56 | NUR ---
REPORT GIVEN TO MAYRA MENA FOR MILA
[2017-05-29 18:00] VITALS: BP 147/57
[2017-05-29] MEDS ORDERED: ZOLPIDEM TARTRATE 5 MG TABLET PO PRN (18:00)
[2017-05-29] MEDS ORDERED: Z GUARD REMEDY 2 OZ OINT TP PRN (18:00)
[2017-05-29] MEDS ORDERED: MAGNESIUM HYDROXIDE 30 ML UDC PO PRN (18:00)
[2017-05-29] MEDS ORDERED: ACETAMINOPHEN 325 MG TABLET PO PRN (18:00)
[2017-05-29] MEDS ORDERED: ONDANSETRON HCL/PF 4 MG/2 ML VIAL IVP PRN (18:00)
[2017-05-29] MEDS ORDERED: MAG HYDROX/AL HYDROX/SIMETH 30 ML UDC PO PRN (18:00)
[2017-05-29] MEDS ORDERED: FEE PK DOSING 1 MIN EA MC ONE (18:11)
[2017-05-29 18:14] LABS: APPEARANCE,URINE Clear (CLEAR); BILIRUBIN,URINE Negative (NEGATIVE); BLOOD, URINE Negative Ery/uL (NEGATIVE); COLOR,URINE Yellow (YELLOW); KETONES,URINE Negative (NEGATIVE); LEUKOCYTE ESTERASE ,URINE Negative (NEGATIVE); NITRITE, URINE Negative (NEGATIVE); PH,URINE 5.5 (5.0-8.0); PROTEIN,URINE Negative (NEGATIVE); UGLUCOSE Negative (NEGATIVE); UROBILINOGEN,URINE 0.2 EU/dL (0.2)
[2017-05-29] MEDS: ENOXAPARIN SODIUM 40 MG/0.4 ML DISP.SYRIN SQ SCH (18:30)
--- NOTE | 2017-05-29 18:55 | NUR ---
INVESTMENT BANKING ASSOCIATE NOTE RECEIVED PT FROM ER. A/OX4. PT IS STABLE AND SITTING IN BED. NO S/S OF DISTRESS OR SOB. PT HAS C/O PAIN OF 6/10. WILL ADDRESS WITH PHARMACOLOGICAL INTERVENTIONS. IV ACCESS LOCATED ON BRENDA PICC LINE, AND LEFT AC 20G SL. ORDER TO RUN NS AT 75 ML/H4. PT IS SCHEDULED FOR SURGERY WITH DR. JONES ON SUNDAY. SAFETY MEASURES IN PLACE, CALL LIGHT WITHIN REACH, WILL CONTINUE TO MONITOR.
--- NOTE | 2017-05-29 19:00 | NUR ---
MS RN OPENING NOTES PT IN BED RESTING, PT A/O X 4, IN STABLE CONDITION. TOLERATING ROOM AIR 100% BREATHING EVEN AND UNLABORED, SAFETY MEASURES IN PLACE, BED LOCKED AND IN LOWEST POSITION, CALL LIGHT IN REACH. WILL CONTINUE TO MONITOR.
[2017-05-29] MEDS: IV NS 0.9% 1,000 ML IV PRN (19:07)
[2017-05-29] MEDS: HYDROCODONE/APAP 5/325MG 1 EACH TABLET PO PRN (19:07)
[2017-05-29 20:00] VITALS: BP 149/84
[2017-05-29] MEDS: INSULIN DETEMIR 100 UNIT/ML CARTRIDGE SQ SCH (21:30)
[2017-05-29] MEDS: BLOOD SUGAR DIAGNOSTIC 1 EACH STRIP VI SCH (21:35)
[2017-05-29] MEDS: *INSULIN REGULAR(HUMULIN R)HUM 100 UNIT/ML VIAL SQ PRN (21:35)
[2017-05-29] MEDS: ATORVASTATIN 10 MG TABLET PO SCH (21:37)
[2017-05-29] MEDS ORDERED: PIPERACILLIN /TAZOBACTAM 3.375 G in IV D5W 50 ML IV SCH (22:00)
[2017-05-29] MEDS: CEFEPIME 1 GM in IV D5W 50 ML IV SCH (23:03)
[2017-05-29] MEDS: HYDROCODONE/APAP 10/325MG 1 EA TABLET PO PRN (23:06)
[2017-05-30] MEDS: HYDROCODONE/APAP 10/325MG 1 EA TABLET PO PRN ×5 (03:11→22:57)
[2017-05-30] MEDS ORDERED: VANCOMYCIN 1.5 GM in IV D5W 500 ML IV SCH (04:00)
[2017-05-30] MEDS: BLOOD SUGAR DIAGNOSTIC 1 EACH STRIP VI SCH ×4 (05:44→22:01)
[2017-05-30] MEDS: INSULIN REGULAR, HUMAN 100 UNIT/ML 3 ML VIAL SQ PRN ×2 (05:45→11:50)
--- NOTE | 2017-05-30 06:44 | NUR ---
MS RN CLOSING NOTES PATIENT COMFORTABLY ASLEEP AND EASILY AWAKEN, HEAD OF BED ELEVATED FOR BETTER LUNG EXPANSION, TOLERATING ROOM AIR 02 SAT 100%. NO COMPLAINS OF PAIN AT THIS TIME. RESPIRATIONS EVEN AND UNLABORED. NO S/S OF ACUTE DISTRESS, NO SOB, NO COUGH, NO CONGESTION, SKIN WARM AND DRY TO TOUCH, AFEBRILE, NURSING CARE RENDERED, NEEDS ATTENDED AND ANTICIPATED, KEPT CLEAN AND DRY AND COMFORTABLE. GOOD SKIN CARE PROVIDED. ALL DUE MEDS WAS GIVEN TOLERATED. FREQUENT VISUAL CHECK DONE FOR SAFETY EVERY 2 HOURS. SAFE HAZARD FREE ENVIRONMENT PROVIDED. CALL LIGHT WITHIN EASY TO REACH, ON LOW BED AT ALL TIMES TO ENSURE SAFETY, WILL ENDORSE TO THE NEXT SHIFT CONTINUE PLAN OF CARE. NO S/S OF HYPO/HYPERGLYCEMIA
[2017-05-30 07:28] LABS: BASOPHILS % (AUTO) 0.3 % (0.0-2.0); EOSINOPHILS # (AUTO) 0.4 /CMM (0.0-0.7); HEMATOCRIT 33 % (39-51); HEMOGLOBIN 10.4 g/dL (13.5-17.5); LYMPHOCYTES # (AUTO) 2.3 /CMM (0.8-4.8); LYMPHOCYTES % (AUTO) 24.2 % (20.0-44.0); MEAN CORPUSCULAR HEMOGLOBIN 23 PG (26.0-33.0); MEAN CORPUSCULAR HGB CONC 32 g/dl (31.0-36.0); MEAN CORPUSCULAR VOLUME 73 fL (80-96); MONOCYTES # (AUTO) 1.1 /CMM (0.1-1.30); MONOCYTES % (AUTO) 11.6 % (2.0-12.0); NEUTROPHILS # (AUTO) 5.7 /CMM (1.8-8.9); NEUTROPHILS % (AUTO) 59.9 % (43.0-81.0); PLATELET COUNT (AUTO) 303 /CMM (150-450); RED BLOOD CELL COUNT(AUTO) 4.54 MIL/uL (4.5-6.0); WHITE BLOOD COUNT (AUTO) 9.4 K/uL (4.3-11.0)
[2017-05-30 07:44] LABS: CALCIUM, SERUM 9.3 mg/dL (8.5-10.1); MAGNESIUM 1.6 mg/dL (1.8-2.4); PHOSPHORUS 3.2 mg/dL (2.5-4.9); POTASSIUM 4.7 mmol/L (3.5-5.1)
[2017-05-30 08:00] VITALS: BP 162/96
[2017-05-30] MEDS: IV NS 0.9% 1,000 ML IV PRN (09:00)
--- NOTE | 2017-05-30 09:00 | NUR ---
RN NOTES RECEIVED PATIENT IN THE ROOM, A/O X4, NO RESPIRATORY DISTRESS, PIC LINE ON RIGHT UPPER ARM, INTACT, INFUSING NS AT 75 ML/HR, ALSO ADMINISTERED SCHEDULED MEDICATION, AND PAIN MEDICATION FOR GENERALIZED PAIN 02/05 PER PATIENT REQUEST, V/S TAKE AND FOLLOWED . PATIENT USING URINAL. PATIENT HAS A BILATERAL LOWER EXTREMITIES GANGRENE INFECTED WOUND. PATIENT NEED ATTENDED AND ANTICIPATED, CALL LIGHT WITHIN TO REACH, SAFETY PRECAUTION MAINTAINED ALL THE TIME. CONTINUED MONITORING.
[2017-05-30] MEDS: METOPROLOL TARTRATE 50 MG TABLET PO SCH ×2 (09:01→16:43)
[2017-05-30] MEDS: DILTIAZEM HCL CD 240 MG PO SCH (09:02)
[2017-05-30] MEDS: LISINOPRIL (20MG) 20 MG TABLET PO SCH (09:02)
[2017-05-30] MEDS: ALLOPURINOL 100 MG TABLET PO SCH (09:02)
[2017-05-30] MEDS: CEFEPIME 1 GM in IV D5W 50 ML IV SCH ×2 (09:49→20:45)
[2017-05-30] MEDS: Magnesium 1GM/D5W 100ML PREMIX 100 ML IV SCH ×2 (10:20→11:45)
[2017-05-30] MEDS: FENOFIBRATE NANOCRYS (145 MG) 145 MG TABLET PO SCH (10:20)
--- NOTE | 2017-05-30 13:34 | NUR ---
RN NOTES PATIENT IN THE ROOM SITTING EDGE OF THE BED, NO ACUTE DISTRESS, ADMINISTERED NARCO 10/325 FOR GENERALIZED PAIN 02/05, PER PATIENT REQUEST, ENCOURAGED TO INCREASE FLUID INTAKE, IV ON RIGHT PICC LINE INTACT NS AT 75 ML/HR, CALL LIGHT WITHIN TO REACH, SAFETY PRECAUTION MAINTAINED ALL THE TIME.
[2017-05-30 16:00] VITALS: BP 148/77
--- NOTE | 2017-05-30 17:00 | NUR ---
RN NOTES BS-116 MG/DL, PATIENT MED COMPLIANT, STABLE AT THIS TIME, NEEDS ATTENDED AND ANTICIPATED. SAFETY PRECAUTION MAINTAINED ALL THE TIME. PUT ORDERED WOUND VAC ON DATE OF 05/31/17, AND NOTIFIED [employer]ENTIAL [employer] TO DELIVER OPERATION ROOM.
[2017-05-30] MEDS ORDERED: POTA10TA21 PO (17:54)
--- NOTE | 2017-05-30 18:40 | NUR ---
RN NOTES PATIENT IN THE ROOM, A/O X4, ADMINISTERED NARCO 10/325 MG PO PRN FOR GENERALIZED PAIN 02/05, PER PATIENTS REQUEST. V/S STABLE, NO ACUTE DISTRESS, IV RUNNING RIGHT UPPER ARM NS-75 ML/HR, PT USING URINAL, AND BATHROOM, NEEDS ATTENDED AND ANTICIPATED, CALL LIGHT WITHIN TO REACH, SAFETY PRECAUTION MAINTAINED ALL THE TIME. ENDORSED ONCOMING NURSE FOR CONTINUATION OF CARE.
--- NOTE | 2017-05-30 19:30 | NUR ---
RN NOTES RECEIVED PT AWAKE ON BED, A/OX 3, BILATERAL FOOT DRESSING, IV FLUID NS RUNNING @ 75 ML/HR, DENEIS PAIN AT THIS TIME, NO SOB CALL LIGHT WITHIN REACH, SIDERAILS UPX2 CONTINUE TO MONITOR
[2017-05-30 20:00] VITALS: BP 142/92
[2017-05-30] MEDS: CARVEDILOL 12.5 MG TABLET PO SCH (20:45)
[2017-05-30] MEDS: ENOXAPARIN SODIUM 40 MG/0.4 ML DISP.SYRIN SQ SCH (21:00)
--- NOTE | 2017-05-30 21:00 | NUR ---
RN NOTES LOVENOX 40 MG SQ WAS NOT GIVEN .. FOR SURGERY TOMORROW. MALATHI BOWEN ORDERED YTO HOLD [facility]
[2017-05-30] MEDS: ATORVASTATIN 10 MG TABLET PO SCH (22:01)
[2017-05-30] MEDS: INSULIN DETEMIR 100 UNIT/ML CARTRIDGE SQ SCH (22:03)
[2017-05-30] MEDS: *INSULIN REGULAR(HUMULIN R)HUM 100 UNIT/ML VIAL SQ PRN (22:03)
--- NOTE | 2017-05-30 22:58 | NUR ---
RN NOTES COMLAINED OF BILATERAL FOOT PAIN- NORCO 10/325 MG PO GIVEN ORDERED, V/S STABLE
[2017-05-31] MEDS: IV NS 0.9% 1,000 ML IV PRN (00:41)
[2017-05-31] MEDS: HYDROCODONE/APAP 10/325MG 1 EA TABLET PO PRN ×2 (03:34→07:36)
--- NOTE | 2017-05-31 03:37 | NUR ---
RN NOTES COMPLAINED OF BILATERAL FOOT PAIN- NORCO 10/325 MG PO GIVEN ORDERED, V/S STABLE
[2017-05-31 06:15] VITALS: BP 140/71
[2017-05-31 06:46] LABS: CALCIUM, SERUM 9.4 mg/dL (8.5-10.1); CREATININE 1.1 mg/dL (0.6-1.3); MAGNESIUM 1.7 mg/dL (1.8-2.4); POTASSIUM 4.7 mmol/L (3.5-5.1)
--- NOTE | 2017-05-31 06:47 | NUR ---
RN NOTES AWAKE, IV FLUID RUNNING, IV LINE PATENT NO REDNESS OR SWOLLEN, MORNING CARE RENDERED, CALL LIGHT WITHIN REACH, SIDERAILS UPX2 PT. NEEDS ATTENDED.
[2017-05-31] MEDS: BLOOD SUGAR DIAGNOSTIC 1 EACH STRIP VI SCH ×5 (07:31→21:17)
--- NOTE | 2017-05-31 07:40 | NUR ---
RN INITIAL NOTES: 0720- RECEIVED PATIENT RESTING IN BED.NONLABORED BREATHING NOTED ON ROOM AIR. PATIENT STATES HAVING SEVERE PAIN ON BLE. MIDLINE PATENT AND INTACT. BED IN LOWEST LOCKED POSITION. CALL LIGHT WITHIN REACH. PATIENT ALERT ORIENTED X3. NORCO ADMINISTERED PER MD ORDERS. BLOOD SUGAR RECHECKED. NO COVERAGE DUE TO PATIENT BEING NPO DUE TO DEBRIDEMENT PROCEDURE TODAY. PATIENT LEFT TO OR AT 0740
[2017-05-31 08:00] VITALS: BP 133/72
[2017-05-31] MEDS ORDERED: FENTANYL PF 100MCG/2ML AMPUL ONE (08:04)
[2017-05-31] MEDS ORDERED: MIDAZOLAM HCL 2 MG/2ML VIAL ONE (08:04)
[2017-05-31] MEDS ORDERED: KETAMINE HCL (500MG/10ML) 50 MG/ML VIAL ONE (08:05)
[2017-05-31] MEDS ORDERED: BUPIVACAINE 0.5 % PF 150 MG/30 ML VIAL ONE (08:34)
[2017-05-31] MEDS: INSULIN ASPART HUMALOG/NOVOLOG 100 UNIT/ML CARTRIDGE SQ SCH ×3 (09:00→17:00)
[2017-05-31 09:07] LABS: BASOPHILS % (AUTO) 0.3 % (0.0-2.0); EOSINOPHILS # (AUTO) 0.4 /CMM (0.0-0.7); HEMATOCRIT 32 % (39-51); HEMOGLOBIN 9.9 g/dL (13.5-17.5); LYMPHOCYTES % (AUTO) 22.5 % (20.0-44.0); MEAN CORPUSCULAR HEMOGLOBIN 23 PG (26.0-33.0); MEAN CORPUSCULAR HGB CONC 31 g/dl (31.0-36.0); MEAN CORPUSCULAR VOLUME 73 fL (80-96); MONOCYTES # (AUTO) 1.1 /CMM (0.1-1.30); MONOCYTES % (AUTO) 11.9 % (2.0-12.0); NEUTROPHILS # (AUTO) 5.6 /CMM (1.8-8.9); NEUTROPHILS % (AUTO) 61.3 % (43.0-81.0); PLATELET COUNT (AUTO) 303 /CMM (150-450); RDW COEFFICIENT OF VARIATION 18.9 (11.5-15.0); WHITE BLOOD COUNT (AUTO) 9.1 K/uL (4.3-11.0)
--- NOTE | 2017-05-31 10:20 | NUR ---
RN NOTES: DR MANSFIELD ORDERED THAT PATIENT TO RESUME PREVIOUS DIET WELL PREVIOUS ORDERS, TO LEAVE DRESSING INTACT,AND TO REINFORCE IT NOTE STRIKE THROUGH, KEEP WOUND VAC RUNNING AT ALL TIMES AT CONTINUOUS SETTING OF 125 MMHG. HE ALSO ORDERED : NONWEIGHTBEARING ON BLE WELL ELEVATING THEM
[2017-05-31] MEDS: Magnesium 1GM/D5W 100ML PREMIX 100 ML IV SCH ×4 (10:25→18:32)
[2017-05-31] MEDS: ALLOPURINOL 100 MG TABLET PO SCH (10:36)
[2017-05-31] MEDS: FENOFIBRATE NANOCRYS (145 MG) 145 MG TABLET PO SCH (10:37)
[2017-05-31] MEDS: DILTIAZEM HCL CD 240 MG PO SCH (10:37)
[2017-05-31] MEDS: LISINOPRIL (20MG) 20 MG TABLET PO SCH (10:38)
[2017-05-31] MEDS: CEFEPIME 1 GM in IV D5W 50 ML IV SCH ×2 (10:44→21:15)
[2017-05-31] MEDS: CARVEDILOL 12.5 MG TABLET PO SCH ×2 (11:10→21:17)
[2017-05-31] MEDS: METOPROLOL TARTRATE 50 MG TABLET PO SCH ×2 (11:10→17:43)
--- NOTE | 2017-05-31 11:20 | NUR ---
RN NOTES: PATIENT RETURNED FROM OR AT 1020. PATIENT STABLE. VS WNL. NONLABORED BREATHING ON 2L. IV SITE ON RIGHT HAND PATENT AND INTACT. WOUND VACUUM ON RUNNING AT 125 MMHG CONTINUOUS. BOTH EXTREMITIES ELEVATED. DRESSING INTACT. NO BLEEDING MEDICATIONS ADMINISTERED AFTER PATIENT'S ARRIVAL ON UNIT.BLOOD SUGAR 144. NONVOLOG HELD. PATIENT SLOWLY DRINKG JUICE, WILL RECHECK BLOOD SUGAR BEFORE LUNCH AGAIN. BENEFITS AND RISKS EXPLAINED.
--- NOTE | 2017-05-31 11:55 | NUR ---
RN NOTES: PICCLINE ON UPPER RIGHT EXTREMITY THAT WAS INSERTED OUTSIDE OF THE HOSPITAL IS NOT PATENT. DR DONIS NOTIFIED, AND HE ORDERED A MIDLINE INSERTION. ALSO DOCTOR ORDERED MORPHINE 2 MG IV Q 4 HOURS PRN
[2017-05-31] MEDS ORDERED: MORPHINE SULFATE INJ 2 MG/ML DISP.SYRIN IV PRN (12:00)
[2017-05-31] MEDS: MORPHINE SULFATE INJ 10 MG/ML DISP.SYRIN IV PRN ×3 (12:36→21:14)
[2017-05-31 16:00] VITALS: BP 124/62
--- NOTE | 2017-05-31 17:57 | NUR ---
RN NOTES: BLOOD SUGAR ASSESSED AND NOTED TO BE 80. PATIENT REFUSED THE 55 UNITS NOVOLOG. DINNER TERESA GIVEN TO PATIENT. PATIENT CURRENTLY EATING. BENEFITS AND RISKS EXPLAINED. MAGNESIUM BAGS NOT GIVEN IN THE MORNING DUE TO PATIENT BEING IN SURGERY FOR DEBRIDEMENT. PHARMACY NOTIFIED AND IS AWARE. ALSO, PATIENT WAS AWAITING TO OBTAIN AN IV ACCESS THROUGHOUT THE DAY. PICCLINE NOT PATENT, REMOVED AND A MIDLINE INSERTED AT 1630. MAGNESIUM INFUSING NOW PER PHARMACY ORDERS.
[2017-05-31] MEDS: FLUCONAZOLE (100 MG) 100 MG TABLET PO SCH (18:28)
--- NOTE | 2017-05-31 19:08 | NUR ---
RN CLOSING NOTES PATIENT RESTING IN BED.NONLABORED BREATHING NOTED ON ROOM AIR. PATIENT DENIES PAIN. MIDLINE ON UPPER RIGHT ARM PATENT AND INTACT. BED IN LOWEST LOCKED POSITION. CALL LIGHT WITHIN REACH. EARLIER IN THE DAY, BLOOD WAS NOTED DRIPPING FROM RIGHT FOOT. DR MANSFIELD NOTIFIED. CHANGED DRESSING ON BLE. HE ALSO CHANGED THE WOUND VAC. WOUND VAC ON CONTINUOUS 125 MMHG. WILL ENDORSE TO NEXT SHIFT
--- NOTE | 2017-05-31 19:42 | NUR ---
RN NOTES RECEIVED PT. SLEEPING BUT AROUSABLE, WOUND VAC IN PLACE, DRESSING ON BILATERAL FOOT DRY AND INTACT, PT HAD A S/P RIGHT AND LEFT LOWER EXTREMITY WOUND DEBRIDEMENT , DENIES PAIN, NO SOB, CALL LIGHT WITHIN REACH, SIDERAILS UPX2, CONTINUE TO MONITOR
[2017-05-31 20:00] VITALS: BP_SYST 131; BP_DIAS 59; BP_DIAS 60
[2017-05-31] MEDS: ENOXAPARIN SODIUM 40 MG/0.4 ML DISP.SYRIN SQ SCH (21:16)
[2017-05-31] MEDS: ATORVASTATIN 10 MG TABLET PO SCH (21:17)
[2017-05-31] MEDS: INSULIN DETEMIR 100 UNIT/ML CARTRIDGE SQ SCH (21:28)
[2017-05-31] MEDS: *INSULIN REGULAR(HUMULIN R)HUM 100 UNIT/ML VIAL SQ PRN (21:30)
--- NOTE | 2017-05-31 21:34 | NUR ---
RN NOTES COMPLAINED OF RIGHT FOOT PAIN -MORPHINE 2 MG IV GIVEN ORDERED, V/S STABLE
[2017-06-01] MEDS: IV NS 0.9% 1,000 ML IV PRN ×2 (02:05→17:14)
[2017-06-01] MEDS: MORPHINE SULFATE INJ 10 MG/ML DISP.SYRIN IV PRN ×6 (02:05→23:10)
--- NOTE | 2017-06-01 02:10 | NUR ---
RN NOTES COMPLAINED OF RIGHT FOOT PAIN- MORPHINE 2 MG IV GIVEN ORDERED, V/S STABLE
[2017-06-01] MEDS: BLOOD SUGAR DIAGNOSTIC 1 EACH STRIP VI SCH ×4 (06:07→22:12)
--- NOTE | 2017-06-01 06:12 | NUR ---
RN NOTES COMPLAINED OF RIGHT FOOT PAIN-MORPHINE 2MG IV GIVEN ORDERED, V/S STABLE
[2017-06-01 06:13] LABS: BASOPHILS % (AUTO) 0.2 % (0.0-2.0); EOSINOPHILS # (AUTO) 0.2 /CMM (0.0-0.7); EOSINOPHILS % (AUTO) 2.5 % (0.0-6.0); HEMATOCRIT 30 % (39-51); HEMOGLOBIN 9.4 g/dL (13.5-17.5); LYMPHOCYTES % (AUTO) 20.7 % (20.0-44.0); MEAN CORPUSCULAR HEMOGLOBIN 23 PG (26.0-33.0); MEAN CORPUSCULAR HGB CONC 31 g/dl (31.0-36.0); MEAN CORPUSCULAR VOLUME 73 fL (80-96); MONOCYTES % (AUTO) 10.4 % (2.0-12.0); NEUTROPHILS # (AUTO) 6.3 /CMM (1.8-8.9); NEUTROPHILS % (AUTO) 66.2 % (43.0-81.0); PLATELET COUNT (AUTO) 295 /CMM (150-450); RDW COEFFICIENT OF VARIATION 19.1 (11.5-15.0); RED BLOOD CELL COUNT(AUTO) 4.18 MIL/uL (4.5-6.0); WHITE BLOOD COUNT (AUTO) 9.5 K/uL (4.3-11.0)
[2017-06-01 06:35] LABS: CALCIUM, SERUM 9.2 mg/dL (8.5-10.1); CREATININE 1.1 mg/dL (0.6-1.3); MAGNESIUM 1.9 mg/dL (1.8-2.4); POTASSIUM 4.5 mmol/L (3.5-5.1)
--- NOTE | 2017-06-01 06:43 | NUR ---
RN NOTES SLEEPING BUT AROUSABLE, WOUND VAC IN PLACE, MIDLINE IN PLACE, DENIES PAIN AT THIS TIME, NO SOB, MORNING CARE RENDERED, CALL LIGHT WITHIN REACH, SIDERAILS UPX2 PT. NEEDS ATTENDED
--- NOTE | 2017-06-01 07:50 | NUR ---
MS/RN OPENING NOTE PATIENT RECEIVED IN BED IN STABLE CONDITION. A/O X 4. NO SIGNS OF ACUTE DISTRESS. NO COMPLAIN OF PAIN OR DISCOMFORT. ALL NEEDS ATTENDED TO. CALL LIGHT WITHIN REACH. WILL CONTINUE TO MONITOR TO ENSURE SAFETY.
[2017-06-01 07:52] LABS: BAND % (MANUAL) 4 % (0.0-5.0); EOSINOPHILS % (MANUAL) 1 % (0-4); LYMPHOCYTES % (MANUAL) 12 % (16-48); MONOCYTES % (MANUAL) 4 % (0-11.0); NEUTROPHILS % (MANUAL) 79 (42-76)
[2017-06-01 08:00] VITALS: BP 137/67
[2017-06-01] MEDS: CEFEPIME 1 GM in IV D5W 50 ML IV SCH ×2 (08:33→21:59)
[2017-06-01] MEDS: CARVEDILOL 12.5 MG TABLET PO SCH ×2 (08:33→22:07)
[2017-06-01] MEDS: METOPROLOL TARTRATE 50 MG TABLET PO SCH ×2 (08:34→17:04)
[2017-06-01] MEDS: LISINOPRIL (20MG) 20 MG TABLET PO SCH (08:34)
[2017-06-01] MEDS: ALLOPURINOL 100 MG TABLET PO SCH (08:35)
[2017-06-01] MEDS: FLUCONAZOLE (100 MG) 100 MG TABLET PO SCH (08:35)
[2017-06-01] MEDS: DILTIAZEM HCL CD 240 MG PO SCH (08:35)
[2017-06-01] MEDS: FENOFIBRATE NANOCRYS (145 MG) 145 MG TABLET PO SCH (08:35)
[2017-06-01] MEDS: INSULIN ASPART HUMALOG/NOVOLOG 100 UNIT/ML CARTRIDGE SQ SCH ×3 (08:38→17:00)
--- NOTE | 2017-06-01 08:38 | NUR ---
MS/RN NON ADMIN HUMALOG/NOVOLOG NOT ADMINISTERED HUMALOG/NOVOLOG SECONDARY BS 129
[2017-06-01] MEDS: INSULIN REGULAR, HUMAN 100 UNIT/ML 3 ML VIAL SQ PRN ×2 (11:57→17:13)
[2017-06-01 16:00] VITALS: BP 117/61
--- NOTE | 2017-06-01 18:56 | NUR ---
MS/RN CLOSING NOTE PATIENT IN BED IN STABLE CONDITION. A/O X 3. NO SIGNS OF ACUTE DISTRESS. NO COMPLAIN OF PAIN OR DISCOMFORT. ALL NEEDS ATTENDED TO. CALL LIGHT WITHIN REACH. WILL ENDORSE TO NEXT SHIFT FOR CONTINUITY OF CARE.
--- NOTE | 2017-06-01 19:33 | NUR ---
MS RN OPENING NOTES RECEIVED PATIENT RESTING IN BED, NO ACUTE DISTRESS, NO SOB, NO C/O PAIN NOTED AT THIS TIME. ABLE TO MOVE INDEPENDENTLY IN BED. A & O X 3. BRENDA MIDLINE, INTACT PATENT, RUNNING WITH NS @ 75 ML/HR. NO S/S OF INFECTION NOTED AT MIDLINE SITE. ON CCHO DIET. WOUND VAC IN PLACE AT 125 MM/HG. NWB TO BLE. INFORMED PATIENT NOT TO USE HIS BLE, CALL FOR HELP WHENEVER NEEDED. CONTINENT & USES URINAL IN BED. PT VERBALIZED UNDERSTANDING AT THIS TIME. BILATERAL FEET DRESSING IN PLACE & INTACT. BED IN LOW LOCKED POSITION. CALL LIGHT WITHIN REACH. WILL ASSIST PT WITH ADL CARE. CONTINUING TO MONITOR.
[2017-06-01 20:00] VITALS: BP_SYST 126; BP_SYST 163; BP_DIAS 60; BP_DIAS 67
[2017-06-01] MEDS: ATORVASTATIN 10 MG TABLET PO SCH (21:59)
[2017-06-01] MEDS: ENOXAPARIN SODIUM 40 MG/0.4 ML DISP.SYRIN SQ SCH (22:00)
[2017-06-01] MEDS: INSULIN DETEMIR 100 UNIT/ML CARTRIDGE SQ SCH (22:22)
--- NOTE | 2017-06-01 23:10 | NUR ---
PRN MORPHINE GIVEN PATIENT VERBALIZED NEED OF MORPHINE DUE TO RIGHT FOOT PAIN 03/08. PRN MORPHINE GIVEN. V/S CHECKED BP 140/64, 77, 18, 98, 96% AT RA. WILL REASSESS FOR EFFECTIVENESS OF PAIN MEDICINE.
[2017-06-02] MEDS: HYDROCODONE/APAP 5/325MG 1 EACH TABLET PO PRN ×4 (03:36→16:11)
--- NOTE | 2017-06-02 03:36 | NUR ---
PRN NORCO GIVEN PATIENT VERBALIZED C/O PAIN TO BOTH FEET, REQUESTED FOR NORCO AT THIS TIME. PRN NORCO GIVEN, WILL REASSESS FOR EFFECTIVENESS OF NORCO.
--- NOTE | 2017-06-02 06:22 | NUR ---
MS RN CLOSING NOTES PATIENT SLEPT INTERMITTENTLY. NO ACUTE DISTRESS NOTED. HAD C/O PAIN TO FADIA FEET, PRN PAIN MEDS GIVEN ORDERED & WAS EFFECTIVE. WOUND VAC TO RIGHT FOOT PER MD ORDER. PATIENT NOTED STANDING UP MULTIPLE TIMES, WHEN INFORMED/REMINDED ABOUT NWB TO BLE, PT GETS UPSET & ASKS TO LEAVE THE ROOM, GETS NON COMPLAINT AT TIMES WITH CARE. IV ACCESS TO BRENDA MIDLINE, INTACT PATENT, RUNNING WITH NS @ 75ML/HR. IN STABLE CONDITION. ASSISTED WITH ALL ADL CARE. ALL NEEDS MET. SAFETY MEASURES IN PLACE. BED IN LOW LOCKED POSITION. CALL LIGHT WITHIN REACH. WILL ENDORSE TO AM RN FOR CONTINUITY OF CARE.
[2017-06-02] MEDS: BLOOD SUGAR DIAGNOSTIC 1 EACH STRIP VI SCH ×4 (06:42→21:34)
[2017-06-02 07:26] LABS: BASOPHILS % (AUTO) 0.5 % (0.0-2.0); EOSINOPHILS # (AUTO) 0.3 /CMM (0.0-0.7); EOSINOPHILS % (AUTO) 3.5 % (0.0-6.0); HEMATOCRIT 28 % (39-51); HEMOGLOBIN 8.9 g/dL (13.5-17.5); LYMPHOCYTES # (AUTO) 1.7 /CMM (0.8-4.8); LYMPHOCYTES % (AUTO) 22.5 % (20.0-44.0); MEAN CORPUSCULAR HEMOGLOBIN 23 PG (26.0-33.0); MEAN CORPUSCULAR HGB CONC 32 g/dl (31.0-36.0); MEAN CORPUSCULAR VOLUME 73 fL (80-96); MONOCYTES # (AUTO) 0.7 /CMM (0.1-1.30); NEUTROPHILS # (AUTO) 4.8 /CMM (1.8-8.9); NEUTROPHILS % (AUTO) 63.5 % (43.0-81.0); PLATELET COUNT (AUTO) 254 /CMM (150-450); RDW COEFFICIENT OF VARIATION 18.9 (11.5-15.0); RED BLOOD CELL COUNT(AUTO) 3.86 MIL/uL (4.5-6.0); WHITE BLOOD COUNT (AUTO) 7.5 K/uL (4.3-11.0)
--- NOTE | 2017-06-02 07:30 | NUR ---
RN OPENING NOTES RECEIVED PT. IN BED WATCHING TV, A&OX4. BREATHING UNLABORED ON ROOM AIR. NO S/S OF ACUTE DISTRESS. IV FLUIDS RUNNING. BOTH FEET HAVE TAYLER BANDAGES WRAPPED. WALKER IS AT BEDSIDE. BED IS IN LOWEST, LOCKED POSITION, 2 SENIOR NETWORK SYSTEMS ENGINEER RAILS UP, AND INSTRUCTED PT. TO USE CALL LIGHT FOR ASSISTANCE.
[2017-06-02] MEDS: INSULIN REGULAR, HUMAN 100 UNIT/ML 3 ML VIAL SQ PRN ×2 (07:37→12:00)
[2017-06-02] MEDS: IV NS 0.9% 1,000 ML IV PRN ×2 (07:38→20:20)
[2017-06-02 07:43] LABS: CALCIUM, SERUM 8.8 mg/dL (8.5-10.1); CREATININE 1.2 mg/dL (0.6-1.3); POTASSIUM 4.7 mmol/L (3.5-5.1)
[2017-06-02 08:00] VITALS: BP 131/69
[2017-06-02] MEDS: METOPROLOL TARTRATE 50 MG TABLET PO SCH ×2 (10:03→17:03)
[2017-06-02] MEDS: DILTIAZEM HCL CD 240 MG PO SCH (10:04)
[2017-06-02] MEDS: ALLOPURINOL 100 MG TABLET PO SCH (10:05)
[2017-06-02] MEDS: FENOFIBRATE NANOCRYS (145 MG) 145 MG TABLET PO SCH (10:05)
[2017-06-02] MEDS: FLUCONAZOLE (100 MG) 100 MG TABLET PO SCH (10:05)
[2017-06-02] MEDS: CARVEDILOL 12.5 MG TABLET PO SCH ×2 (10:05→21:32)
[2017-06-02] MEDS: LISINOPRIL (20MG) 20 MG TABLET PO SCH (10:05)
[2017-06-02] MEDS: CEFEPIME 1 GM in IV D5W 50 ML IV SCH ×2 (10:06→20:20)
[2017-06-02] MEDS: INSULIN ASPART HUMALOG/NOVOLOG 100 UNIT/ML CARTRIDGE SQ SCH ×3 (10:30→17:00)
[2017-06-02 16:00] VITALS: BP 117/57
--- NOTE | 2017-06-02 16:46 | NUR ---
RN NOTES CHANGED PT.'S LEFT FOOT WOUND DRESSING WITHOUT COMPLICATIONS PER MD ORDER.
--- NOTE | 2017-06-02 17:17 | NUR ---
RN NOTES BLOOD SUGAR 76MG/DL DID NOT ADMINISTER 55 UNITS OF INSULIN NOVOLOG.
--- NOTE | 2017-06-02 19:50 | NUR ---
RN CLOSING NOTES PT. IN BED WATCHING TV SITTING UP AT EDGE OF BED, A&OX4. BREATHING UNLABORED ON ROOM AIR. NO S/S OF ACUTE DISTRESS. IV FLUIDS RUNNING. BOTH FEET HAVE TAYLER BANDAGES WRAPPED. WALKER IS AT BEDSIDE. BED IS IN LOWEST, LOCKED POSITION, 2 COLLEGE ADMISSIONS COUNSELOR RAILS UP, AND INSTRUCTED PT. TO USE CALL LIGHT FOR ASSISTANCE. WILL ENDORSE REPORT TO NURSE.
[2017-06-02 20:00] VITALS: BP 128/66
[2017-06-02] MEDS: HYDROCODONE/APAP 10/325MG 1 EA TABLET PO PRN (20:33)
--- NOTE | 2017-06-02 20:45 | NUR ---
RN NOTES COMPLAINED OF RIGHT FOOT [AIN- NORCO 10/325 MG PO GIVEN ORDERED, V/S STABLE
[2017-06-02] MEDS: ATORVASTATIN 10 MG TABLET PO SCH (21:33)
[2017-06-02] MEDS: ENOXAPARIN SODIUM 40 MG/0.4 ML DISP.SYRIN SQ SCH (21:34)
[2017-06-02] MEDS: *INSULIN REGULAR(HUMULIN R)HUM 100 UNIT/ML VIAL SQ PRN (21:42)
[2017-06-02] MEDS: INSULIN DETEMIR 100 UNIT/ML CARTRIDGE SQ SCH (21:42)
[2017-06-03] MEDS: HYDROCODONE/APAP 10/325MG 1 EA TABLET PO PRN ×6 (00:45→21:31)
--- NOTE | 2017-06-03 00:47 | NUR ---
RN NOTES COMPLAINED OF RIGHT FOOT PAIN- NORCO 10/325 MG PO GIVEN ORDERED, V/S STABLE
--- NOTE | 2017-06-03 04:01 | NUR ---
RN NOTES COMPLAINED OF RIGHT FOOT PAIN- NORCO 10/325 MG PO GIVEN SA ORDERED, V/S STABLE
[2017-06-03] MEDS: BLOOD SUGAR DIAGNOSTIC 1 EACH STRIP VI SCH ×4 (06:15→21:20)
[2017-06-03] MEDS: INSULIN REGULAR, HUMAN 100 UNIT/ML 3 ML VIAL SQ PRN ×2 (06:18→17:19)
--- NOTE | 2017-06-03 06:30 | NUR ---
RN NOTES AWAKE , MIDLINE IN PLACE, NO REDNESS OR SWOLLEN, WOUND VAC IN PLACE, MORNING CARE RENDERED, DENIES PAIN AT THIS TIME, NO SOB, CALL LIGHT WITHIN REACH, SIDERAILS UPX2 PT. NEEDS ATTENDED
[2017-06-03 06:55] LABS: BASOPHILS % (AUTO) 0.4 % (0.0-2.0); EOSINOPHILS # (AUTO) 0.4 /CMM (0.0-0.7); EOSINOPHILS % (AUTO) 3.9 % (0.0-6.0); HEMATOCRIT 32 % (39-51); HEMOGLOBIN 9.9 g/dL (13.5-17.5); LYMPHOCYTES % (AUTO) 20.2 % (20.0-44.0); MEAN CORPUSCULAR HEMOGLOBIN 23 PG (26.0-33.0); MEAN CORPUSCULAR HGB CONC 31 g/dl (31.0-36.0); MEAN CORPUSCULAR VOLUME 73 fL (80-96); MONOCYTES % (AUTO) 9.8 % (2.0-12.0); NEUTROPHILS # (AUTO) 6.6 /CMM (1.8-8.9); NEUTROPHILS % (AUTO) 65.7 % (43.0-81.0); PLATELET COUNT (AUTO) 351 /CMM (150-450); RDW COEFFICIENT OF VARIATION 18.9 (11.5-15.0); RED BLOOD CELL COUNT(AUTO) 4.35 MIL/uL (4.5-6.0)
[2017-06-03 07:11] LABS: CALCIUM, SERUM 9.7 mg/dL (8.5-10.1); POTASSIUM 4.8 mmol/L (3.5-5.1)
--- NOTE | 2017-06-03 07:30 | NUR ---
RN OPENING NOTES RECEIVED PT. IN BED SITTING UP WATCHING TV, A&OX4. BREATHING UNLABORED ON ROOM AIR. NO S/S OF ACUTE DISTRESS. IV FLUIDS RUNNING AT 75 ML/HR. BOTH FEET HAVE TAYLER BANDAGES WRAPPED. WALKER NEAR BEDSIDE. BED IS IN LOWEST, LOCKED POSITION, 2 COMPANY SECRETARY RAILS UP, AND INSTRUCTED PT. TO USE CALL LIGHT FOR ASSISTANCE. ALL NEEDS ATTENDED TO. WILL CONTINUE TO ASSESS AND MONITOR.
[2017-06-03 08:00] VITALS: BP 128/109
--- NOTE | 2017-06-03 09:00 | NUR ---
RN NOTES PT. REQUESTED TO NOT HAVE A DRESSING CHANGE ON HIS LEFT FOOT TODAY.
[2017-06-03] MEDS: ALLOPURINOL 100 MG TABLET PO SCH (09:33)
[2017-06-03] MEDS: LISINOPRIL (20MG) 20 MG TABLET PO SCH (09:33)
[2017-06-03] MEDS: CARVEDILOL 12.5 MG TABLET PO SCH ×2 (09:33→21:19)
[2017-06-03] MEDS: DILTIAZEM HCL CD 240 MG PO SCH (09:34)
[2017-06-03] MEDS: FLUCONAZOLE (100 MG) 100 MG TABLET PO SCH (09:34)
[2017-06-03] MEDS: METOPROLOL TARTRATE 50 MG TABLET PO SCH ×2 (09:34→17:15)
[2017-06-03] MEDS: FENOFIBRATE NANOCRYS (145 MG) 145 MG TABLET PO SCH (09:35)
[2017-06-03] MEDS: CEFEPIME 1 GM in IV D5W 50 ML IV SCH ×2 (09:35→21:18)
[2017-06-03] MEDS: INSULIN ASPART HUMALOG/NOVOLOG 100 UNIT/ML CARTRIDGE SQ SCH ×3 (09:47→18:37)
[2017-06-03] MEDS: IV NS 0.9% 1,000 ML IV PRN ×2 (09:49→21:20)
[2017-06-03] MEDS: DEXTROSE 50%-WATER 50 ML DISP.SYRIN IV PRN (12:12)
--- NOTE | 2017-06-03 12:12 | NUR ---
RN NOTES PT.'S BLOOD SUGAR WAS 43 MG/DL. ADMINISTERED DEXTROSE IV PUSH PER PROTOCOL.
--- NOTE | 2017-06-03 12:58 | NUR ---
RN NOTES BLOOD SUGAR IS 143 MG/DL.
--- NOTE | 2017-06-03 13:00 | NUR ---
RN NOTES WILL HOLD ADMINISTERING NOVOLOG 55 UNITS OF INSULIN DUE TO A LOW BLOOD SUGAR READING EARLIER. PT.'S BLOOD SUGAR INCREASED TO 143MG/DL, AFTER ADMINISTERING DEXTROSE IVP.
[2017-06-03 16:00] VITALS: BP 122/63
--- NOTE | 2017-06-03 17:41 | NUR ---
RN NOTES PT. WAS SEEN AND EXAMINED BY MIDLINE NURSE. PT. HAD LEFT UPPER ARM MIDLINE REMOVED WITHOUT COMPLICATIONS, AND A NEW MIDLINE INSERTED ON THE LEFT UPPER ARM. LEFT UPPER ARM MIDLINE IS PATENT AND INTACT WITH IV FLUIDS RUNNING. Addendum: 06/03/17 at 1744 by LALA PINON RN NOTE PATIENT ERROR NOTE FOR A DIFFERENT PT. ABOVE.
--- NOTE | 2017-06-03 19:12 | NUR ---
RN CLOSING NOTES PT. IN BED SITTING UP WATCHING TV, A&OX4. BREATHING UNLABORED ON ROOM AIR. NO S/S OF ACUTE DISTRESS. IV FLUIDS RUNNING AT 75 ML/HR. BOTH FEET HAVE TAYLER BANDAGES WRAPPED. WHEELCHAIR NEAR BEDSIDE. BED IS IN LOWEST, LOCKED POSITION, 2 DIRECTOR OF ROOMS RAILS UP, AND INSTRUCTED PT. TO USE CALL LIGHT FOR ASSISTANCE. ALL NEEDS ATTENDED TO. WILL ENDORSE REPORT TO NURSE.
[2017-06-03 20:00] VITALS: BP 127/74
--- NOTE | 2017-06-03 20:32 | NUR ---
RN NOTES RECEIVED PT. AWAKE ON BED, WOUND VAC IN PLACE, IV FLUID NS RUNNING @ 75ML/HR, DRESSING ON THE RIGHT FOOT DRY AND INTACT WELL ON THE LEFT FOOT, CALL LIGHT WITHIN REACH, SIDERAILS UPX2 CONTINUE TO MONITOR
[2017-06-03] MEDS: ATORVASTATIN 10 MG TABLET PO SCH (21:18)
[2017-06-03] MEDS: ENOXAPARIN SODIUM 40 MG/0.4 ML DISP.SYRIN SQ SCH (21:19)
--- NOTE | 2017-06-03 21:34 | NUR ---
RN NOTES COMPLAINED OF RIGHT FOOT PAIN- NORCO 10/325 MG PO GIVEN ORDERED, V/S STABLE
[2017-06-03] MEDS: INSULIN DETEMIR 100 UNIT/ML CARTRIDGE SQ SCH (22:00)
--- NOTE | 2017-06-03 22:18 | NUR ---
RN NOTES GOT AN ORDER FROM MALATHI MARTÍNEZ TO HOLD LEVEMIR 70 UNITS TONIGHT, PT. BLOOD SUGAR IS 65,.. WILL RECHECK BLOOD SUGAR @ 0300AM , ORDER NOTED AND CARRIED OUT
[2017-06-04] MEDS: HYDROCODONE/APAP 10/325MG 1 EA TABLET PO PRN ×4 (01:47→20:46)
--- NOTE | 2017-06-04 01:53 | NUR ---
RN NOTES COMPLAINED OF RIGHT FOOT PAIN- NORCO 10/325MG PO GIVEN ORDERED, V/S STABLE
--- NOTE | 2017-06-04 06:00 | NUR ---
RN NOTES COMPLAINED OF RIGHT FOOT PAIN- NORCO 10/325MG PO GIVEN ORDERED, V/S STABLE
[2017-06-04] MEDS: INSULIN REGULAR, HUMAN 100 UNIT/ML 3 ML VIAL SQ PRN (06:13)
[2017-06-04] MEDS: BLOOD SUGAR DIAGNOSTIC 1 EACH STRIP VI SCH ×4 (06:16→22:34)
--- NOTE | 2017-06-04 06:49 | NUR ---
RN NOTES AWAKE , WAITING FOR DR JONES, MIDLINE IN PLACE, , WOUND VAC IN PLACE, MORNING CARE RENDERED, CALL LIGHT WITHIN REACH, SIDERAILS UPX2 PT. NEEDS ATTENDED
--- NOTE | 2017-06-04 07:00 | NUR ---
RN NOTES DR. JONES CAME AND WILL CHANGE PT. WOUND VAC AND STATED ASSIST HIM DO THE DRESSING WELL ON THE RIGHT FOOT..
[2017-06-04 07:09] LABS: CALCIUM, SERUM 9.4 mg/dL (8.5-10.1); CREATININE 1.2 mg/dL (0.6-1.3); POTASSIUM 5.2 mmol/L (3.5-5.1)
--- NOTE | 2017-06-04 07:30 | NUR ---
MS RN RECEIVED ON BED, AWAKE,ALERT,ORIENTED X4,NOT IN ANY FORM OF DISTRESS, LEFT LEG DRESSING W/ TAYLER BANDAGE, NO S/S OF BLEEDING NOTED, RIGHT SIDE TAYLER BANDAGE CONNECTED W/ WOUND VAC, DENIES PAIN AT THIS TIME, WILL MONITOR PATIENT'S CONDITION.
[2017-06-04 08:00] VITALS: BP 134/75
[2017-06-04] MEDS: ALLOPURINOL 100 MG TABLET PO SCH (08:45)
[2017-06-04] MEDS: FLUCONAZOLE (100 MG) 100 MG TABLET PO SCH (08:45)
[2017-06-04] MEDS: FENOFIBRATE NANOCRYS (145 MG) 145 MG TABLET PO SCH (08:45)
[2017-06-04] MEDS: METOPROLOL TARTRATE 50 MG TABLET PO SCH ×2 (08:46→17:00)
[2017-06-04] MEDS: LISINOPRIL (20MG) 20 MG TABLET PO SCH (08:46)
[2017-06-04] MEDS: CARVEDILOL 12.5 MG TABLET PO SCH (08:47)
[2017-06-04] MEDS: DILTIAZEM HCL CD 240 MG PO SCH (08:47)
[2017-06-04] MEDS: CEFEPIME 1 GM in IV D5W 50 ML IV SCH ×2 (08:47→21:09)
[2017-06-04] MEDS: INSULIN ASPART HUMALOG/NOVOLOG 100 UNIT/ML CARTRIDGE SQ SCH ×3 (08:57→17:31)
--- NOTE | 2017-06-04 09:00 | NUR ---
MS MAYRA WADE SERVED, DUE MEDS GIVEN,TOLERATED WELL.
[2017-06-04] MEDS: IV NS 0.9% 1,000 ML IV PRN (10:33)
--- NOTE | 2017-06-04 12:00 | NUR ---
ms elliot bs - 54, gave orange juice, will recheck.
--- NOTE | 2017-06-04 12:20 | NUR ---
ms rn bs - 81 - held hummiguel n at this time, will monitor patient.
[2017-06-04 16:00] VITALS: BP 109/85
--- NOTE | 2017-06-04 17:30 | NUR ---
ms rn bs - 161 - did not give coverage but humulin n 55 units was give, patient had hystory of hypoglycemia last night.
--- NOTE | 2017-06-04 18:13 | NUR ---
ms rn on bed, no distress noted, wound vac functioning well, will monitor patient's condition.
--- NOTE | 2017-06-04 20:27 | NUR ---
Patient alert and orientated. Speech clear verbalizes his needs. Bilateral foot dressing CDI Picline nnoted right upper arm site clean and no redness. smiling and in good spirits, no distress noted at this time
[2017-06-04] MEDS: ENOXAPARIN SODIUM 40 MG/0.4 ML DISP.SYRIN SQ SCH (20:43)
[2017-06-04] MEDS: ATORVASTATIN 10 MG TABLET PO SCH (20:45)
[2017-06-04 21:01] VITALS: BP 139/72
[2017-06-04] MEDS: *INSULIN REGULAR(HUMULIN R)HUM 100 UNIT/ML VIAL SQ PRN (22:40)
[2017-06-04] MEDS: INSULIN DETEMIR 100 UNIT/ML CARTRIDGE SQ SCH (22:48)
[2017-06-04 23:57] VITALS: BP 139/72
[2017-06-05] MEDS: HYDROCODONE/APAP 10/325MG 1 EA TABLET PO PRN ×5 (01:16→19:56)
[2017-06-05] MEDS: IV NS 0.9% 1,000 ML IV PRN (05:43)
--- NOTE | 2017-06-05 06:28 | NUR ---
Patient continus to use the wound Vac, he did turn it off, seen when I was making my rounds, turned back on. Pic line site CDI. He is happy and smiling, Medicated with norco as ordered for NO. 6 pain and t was effective.
[2017-06-05] MEDS: BLOOD SUGAR DIAGNOSTIC 1 EACH STRIP VI SCH ×5 (07:31→23:00)
[2017-06-05] MEDS: *INSULIN REGULAR(HUMULIN R)HUM 100 UNIT/ML VIAL SQ PRN (07:32)
[2017-06-05 08:00] VITALS: BP 119/64
[2017-06-05] MEDS: DILTIAZEM HCL CD 240 MG PO SCH (08:52)
[2017-06-05] MEDS: METOPROLOL TARTRATE 50 MG TABLET PO SCH ×2 (08:52→16:45)
[2017-06-05] MEDS: FENOFIBRATE NANOCRYS (145 MG) 145 MG TABLET PO SCH (08:52)
[2017-06-05] MEDS: FLUCONAZOLE (100 MG) 100 MG TABLET PO SCH (08:53)
[2017-06-05] MEDS: ALLOPURINOL 100 MG TABLET PO SCH (08:53)
[2017-06-05] MEDS: INSULIN ASPART HUMALOG/NOVOLOG 100 UNIT/ML CARTRIDGE SQ SCH ×3 (08:53→16:47)
[2017-06-05] MEDS: LISINOPRIL (20MG) 20 MG TABLET PO SCH (08:53)
[2017-06-05] MEDS: CEFEPIME 1 GM in IV D5W 50 ML IV SCH ×2 (09:07→20:44)
--- NOTE | 2017-06-05 10:48 | NUR ---
RN NOTES LEFT FOOT AND PICC DRESSING CHANGED.
[2017-06-05] MEDS: INSULIN REGULAR, HUMAN 100 UNIT/ML 3 ML VIAL SQ PRN ×2 (12:04→17:05)
--- NOTE | 2017-06-05 13:20 | NUR ---
RN NOTES PATIENT FOUND OFF IV FLUIDS. HE STATES HE REMOVED THE LINE BECAUSE HE "NEEDS A BREAK." HE STATES HE WILL ALLOW THE IV TO BE RECONNECTED LATER THIS EVENING.
[2017-06-05 16:00] VITALS: BP 118/54
--- NOTE | 2017-06-05 17:13 | NUR ---
RN NOTES PATIENT WANTED TO TAKE 55 UNITS OF HOME INSULIN RATHER THAN THE SLIDING SCALE.
--- NOTE | 2017-06-05 19:01 | NUR ---
RN CLOSING NOTES NO SIGNIFICANT CHANGE IN PATIENT CONDITION. NO SOB OR DISTRESS NOTED AT THIS TIME. PATIENT DENIES PAIN. PATIENT STILL ASKING TO BE OFF IV FLUIDS. BED IN A LOW POSITION, CALL LIGHT WITHIN PATIENT REACH. WILL ENDORSE FOR MILA.
[2017-06-05 20:00] VITALS: BP 107/70
--- NOTE | 2017-06-05 20:09 | NUR ---
Patient recieved alert and orientated. Good eye contact moving all extremitieds. Terence foot dressing CDI Right foot with the Wound Vac. Uses the urinal and instructed him not to get OOB for safety. Good eye contact speech clear. Medicated for terence foot pain.
[2017-06-05] MEDS: ENOXAPARIN SODIUM 40 MG/0.4 ML DISP.SYRIN SQ SCH (20:46)
[2017-06-05] MEDS: ATORVASTATIN 10 MG TABLET PO SCH (21:25)
[2017-06-05] MEDS: DEXTROSE 50%-WATER 50 ML DISP.SYRIN IV PRN (21:32)
[2017-06-05] MEDS: INSULIN DETEMIR 100 UNIT/ML CARTRIDGE SQ SCH (22:00)
[2017-06-05 23:02] VITALS: BP_SYST 107
[2017-06-06] MEDS: IV NS 0.9% 1,000 ML IV PRN (02:58)
[2017-06-06] MEDS: HYDROCODONE/APAP 10/325MG 1 EA TABLET PO PRN ×5 (05:16→22:17)
--- NOTE | 2017-06-06 05:33 | NUR ---
patent alert and orientated. Non comliant. Will make rounds and see hobbling around the room after HE disconnected the Wound vac, and the ender wrap falling off. He is [place]. There was an air leak in the right top foot of the Wound Vac, repaird and rewrapped. 2119 found patient diaphoretic, arousable to name and touch,speech clear.., Blood sugar 3 47 D50 1 amp given....blood sugar @ 21:45 150, Spoke to MD Murrell, instructed to HOLD THE LEVEMIR JUST TONIGHT, order pl'd. Blood sugar @ 23:00 125, HS snack served. During the night checked in n patient and at 0500 medicated him for foot pain with [place]. His skin as warm and DRY.
[2017-06-06] MEDS: INSULIN REGULAR, HUMAN 100 UNIT/ML 3 ML VIAL SQ PRN ×2 (06:55→17:10)
[2017-06-06 08:00] VITALS: BP 138/64
--- NOTE | 2017-06-06 08:15 | NUR ---
RN NOTES RECEIVED PT. PT IS STABLE AND RESTING IN BEDSIDE CHAIR. NO S/S OF DISTRESS OR SOB. FOOT DRESSINGS REMAIN INTACT, UNSATURATED. WOUND VAC IN PLACE. IV ACCESS LOCATED ON RIGHT ARM, PICC LINE RUNNING NS AT 75 ML/HR. PT IS SCHEDULED FOR SURGERY WITH DR. JONES TOMORROW, 06/07/17. WILL ENDORSE TO SHANK STITCHER TO PLACE PT ON NPO AT MIDNIGHT. SAFETY MEASURES IN PLACE, CALL LIGHT WITHIN REACH. WILL CONTINUE TO MONITOR.
[2017-06-06] MEDS: ALLOPURINOL 100 MG TABLET PO SCH (09:46)
[2017-06-06] MEDS: FENOFIBRATE NANOCRYS (145 MG) 145 MG TABLET PO SCH (09:46)
[2017-06-06] MEDS: FLUCONAZOLE (100 MG) 100 MG TABLET PO SCH (09:46)
[2017-06-06] MEDS: LISINOPRIL (20MG) 20 MG TABLET PO SCH (09:46)
[2017-06-06] MEDS: DILTIAZEM HCL CD 240 MG PO SCH (09:47)
[2017-06-06] MEDS: METOPROLOL TARTRATE 50 MG TABLET PO SCH ×2 (09:47→17:00)
[2017-06-06] MEDS: CEFEPIME 1 GM in IV D5W 50 ML IV SCH ×2 (09:47→22:06)
[2017-06-06] MEDS: INSULIN ASPART HUMALOG/NOVOLOG 100 UNIT/ML CARTRIDGE SQ SCH ×3 (10:06→17:00)
[2017-06-06] MEDS: BLOOD SUGAR DIAGNOSTIC 1 EACH STRIP VI SCH ×3 (12:48→22:13)
[2017-06-06 16:00] VITALS: BP 137/80
--- NOTE | 2017-06-06 19:33 | NUR ---
RN NOTES PT IN BED RESTING. A/OX4. NO C/O PAIN AT THIS TIME. BILATERAL FEET DRESSINGS INTACT. WOUND VAC IN PLACE AND FUNCTIONAL. PT SCHEDULED FOR SX WITH DR. JONES TOMORROW 06/07/17 IN THE AM. PT IS TO BE PLACED ON NPO AT MIDNIGHT. SCHEDULED NOVALOG/HUMALOG INSULIN HELD DUE TO INITIAL READING ACCUCHECK. ALL PT NEEDS ANTICIPATED AND MET, SAFETY MEASURES IN PLACE, CALL LIGHT IN REACH. WILL ENDORSE TO ASSOCIATE MERCHANDISE PLANNER FOR MILA.
[2017-06-06 20:00] VITALS: BP 144/66
--- NOTE | 2017-06-06 20:55 | NUR ---
RN OPENING NOTES RECEIVED REPORT FROM MAYRA HALL FOR Pt's MILA. SAFETY MEASURES IN PLACE. BED LOW, LOCKED, HOB ELEVATED, SIDE RAILS UP, CALL LIGHT AND BEDSIDE TABLE WITHIN REACH. WILL CONTINUE TO MONITOR Pt THROUGHOUT THE NIGHT FOR SAFETY.
[2017-06-06] MEDS: ENOXAPARIN SODIUM 40 MG/0.4 ML DISP.SYRIN SQ SCH (21:00)
--- NOTE | 2017-06-06 22:00 | NUR ---
BG 232. NO INSULIN GIVEN DUE TO Pt's NPO STATUS AFTER MIDNIGHT FOR SCHEDULED SURGERY IN THE AM TOMORROW ON 06/07/17.
[2017-06-06] MEDS: ATORVASTATIN 10 MG TABLET PO SCH (22:13)
[2017-06-06] MEDS: *INSULIN REGULAR(HUMULIN R)HUM 100 UNIT/ML VIAL SQ PRN (22:24)
[2017-06-07] MEDS: IV NS 0.9% 1,000 ML IV PRN (00:46)
[2017-06-07] MEDS: HYDROCODONE/APAP 5/325MG 1 EACH TABLET PO PRN ×3 (02:34→18:35)
--- NOTE | 2017-06-07 02:35 | NUR ---
RN NOTES Pt REQUESTED PAIN MED BUT CHANGED HIS MIND ONCE THE MED WAS OPENED AND SAID THAT HE WANTED THE MORPHINE IV INSTEAD. DISCARDED THE NORCO-5 PILL.
[2017-06-07] MEDS: MORPHINE SULFATE INJ 10 MG/ML DISP.SYRIN IV PRN ×2 (02:42→22:43)
[2017-06-07] MEDS: BLOOD SUGAR DIAGNOSTIC 1 EACH STRIP VI SCH ×4 (06:12→22:12)
--- NOTE | 2017-06-07 06:14 | NUR ---
BG 211. NO INSULIN GIVEN DUE TO NPO SURGERY STATUS.
--- NOTE | 2017-06-07 06:35 | NUR ---
RN CLOSING NOTES NO SIGNIFICANT CHANGES IN Pt's CONDITION. Pt REMAINS STABLE AT THIS TIME. NO S/S OF ACUTE DISTRESS OR SOB NOTED. SAFETY MEASURES IN PLACE. ALL NEEDS MET AND ATTENDED TO. WILL ENDORSE TO DAYSHIFT RN FOR Pt's MILA.
[2017-06-07] MEDS ORDERED: BUPIVACAINE 0.5 % PF 150 MG/30 ML VIAL ONE (07:24)
[2017-06-07] MEDS ORDERED: LIDOCAINE 0.5%-EPI 1:200,000 50 ML VIAL ONE (07:25)
--- NOTE | 2017-06-07 07:30 | NUR ---
RN OPENING NOTES PATIENT WAS IN OR UPON ENDORSEMENT FROM NIGHT RN.
[2017-06-07 07:46] LABS: CALCIUM, SERUM 9.6 mg/dL (8.5-10.1); CREATININE 1.2 mg/dL (0.6-1.3); POTASSIUM 4.7 mmol/L (3.5-5.1)
[2017-06-07] MEDS ORDERED: FENTANYL PF 100MCG/2ML AMPUL ONE (07:48)
[2017-06-07 09:00] VITALS: BP_SYST 121; BP_SYST 138; BP_DIAS 76; BP_DIAS 82
--- NOTE | 2017-06-07 09:00 | NUR ---
RN NOTES PATIENT CAME BACK FROM OR, SURGERY WAS CANCELLED DUE TO CARDIAC ISSUE, WU=103'S. DR DONIS AND DR TONG AWARE. PATIENT IN STABLE CONDITION, NO CHEST PAIN, NO ACUTE DISTRESS, NO SOB NOTED. NO S/S OF PAIN OR DISCOMFORT. A/OX3. IV SITE INTACT AND PATENT. KEPT PATIENT SAFE AND COMFORTABLE. BED IN LOW POSITION, LOCKED, SIDERAILS UPX2. CALL LIGHT IN REACH. WILL CONTINUE TO MONITOR ACCORDINGLY.
--- NOTE | 2017-06-07 09:01 | NUR ---
RN NOTES DR DONIS AND DR TONG MADE AWARE OF PATIENT'S HEART RATE, NO NEW ORDERS NOTED.
[2017-06-07] MEDS: CEFEPIME 1 GM in IV D5W 50 ML IV SCH ×2 (09:26→21:19)
[2017-06-07] MEDS: ALLOPURINOL 100 MG TABLET PO SCH (09:28)
[2017-06-07] MEDS: FLUCONAZOLE (100 MG) 100 MG TABLET PO SCH (09:28)
[2017-06-07] MEDS: FENOFIBRATE NANOCRYS (145 MG) 145 MG TABLET PO SCH (09:28)
[2017-06-07] MEDS: LISINOPRIL (20MG) 20 MG TABLET PO SCH (09:29)
[2017-06-07] MEDS: DILTIAZEM HCL CD 240 MG PO SCH (09:30)
[2017-06-07] MEDS: METOPROLOL TARTRATE 50 MG TABLET PO SCH ×2 (09:31→16:58)
[2017-06-07] MEDS: INSULIN ASPART HUMALOG/NOVOLOG 100 UNIT/ML CARTRIDGE SQ SCH ×3 (09:50→17:00)
--- NOTE | 2017-06-07 10:00 | NUR ---
RN NOTES REASSESSED PATIENT, XC=839. NO CHEST PAIN. NO ACUTE DISTRESS, NO SOB NOTED, NO S/S OF PAIN OR DISCOMFORT. WILL CONTINUE TO MONITOR ACCORDINGLY.
[2017-06-07] MEDS ORDERED: FUROSEMIDE 40 MG/4 ML VIAL IV ONE (11:00)
[2017-06-07] MEDS ORDERED: DILTIAZEM HCL 50 MG IV IV PRN ×2 (11:00)
[2017-06-07] MEDS: HYDROCODONE/APAP 10/325MG 1 EA TABLET PO PRN (13:54)
[2017-06-07 16:00] VITALS: BP 128/60
[2017-06-07] MEDS: DILTIAZEM HCL CD 180 MG PO SCH (16:57)
--- NOTE | 2017-06-07 17:30 | NUR ---
RN NOTES BS 129, NO INSULIN COVERAGE GIVEN.
--- NOTE | 2017-06-07 19:30 | NUR ---
RN CLOSING NOTES PATIENT RESTING, RESPONSIVE, AT BEDSIDE. NO ACUTE DISTRESS, NO SOB NOTED. DENIES PAIN OR DISCOMFORT. ALL NEEDS ATTENDED AND PROVIDED. KEPT PATIENT SAFE AND COMFORTABLE. BED IN LOCKED, LOW POSITION, SIDERAILS UPX2. CALL LIGHT IN REACH. ENDORSED TO NIGHT RN FOR MILA.
--- NOTE | 2017-06-07 19:40 | NUR ---
MS/RN OPENING NOTES PT AWAKE, AT BEDSIDE. A/OX3. ON ROOM AIR, BREATHING EVEN AND UNLABORED. DENIES SOB OR CHEST PAIN. WOUND VAC TO RIGHT FOOT ON AND INTACT. DRESSING TO LEFT FOOT C/D/I. NWE TO BLE. BRENDA PICC LINE PATENT AND INTACT. BED IN LOW/LOCKED POSITION WITH CALL LIGHT IN REACH. SIDE RAILS UPX2 AND BED ALARM ON FOR SAFETY. WILL CONTINUE TO MONITOR.
[2017-06-07 20:00] VITALS: BP 134/66
[2017-06-07 20:15] VITALS: BP 134/66
[2017-06-07] MEDS: ENOXAPARIN SODIUM 40 MG/0.4 ML DISP.SYRIN SQ SCH (21:21)
[2017-06-07] MEDS: INSULIN DETEMIR 100 UNIT/ML CARTRIDGE SQ SCH (22:13)
[2017-06-07] MEDS: *INSULIN REGULAR(HUMULIN R)HUM 100 UNIT/ML VIAL SQ PRN (22:14)
[2017-06-07] MEDS: ATORVASTATIN 10 MG TABLET PO SCH (22:15)
--- NOTE | 2017-06-07 22:45 | NUR ---
MS/RN NOTES PT C/O PAIN TO BILATERAL FEET 03/08. REQUESTED NORCO 10/ HOWEVER PRIOR TO ADMINISTRATION CHANGED HIS MIND AND REQUESTED MORPHINE INSTEAD. RETURNED NORCO AND ADMINISTERED MORPHINE ORDERED.
[2017-06-08] MEDS: MORPHINE SULFATE INJ 10 MG/ML DISP.SYRIN IV PRN ×2 (03:34→08:31)
[2017-06-08] MEDS: BLOOD SUGAR DIAGNOSTIC 1 EACH STRIP VI SCH (06:32)
[2017-06-08] MEDS: INSULIN REGULAR, HUMAN 100 UNIT/ML 3 ML VIAL SQ PRN ×2 (06:35→08:39)
--- NOTE | 2017-06-08 06:43 | NUR ---
MS/RN CLOSING NOTES PT AWAKE. PT IS HARD OF HEARING. A/OX3. SLEPT INTERMITTENTLY DURING THE NIGHT. ON ROOM AIR, BREATHING EVEN AND UNLABORED. PAIN AT A TOLERABLE LEVEL AT THIS TIME. PAIN MEDICATION ADMINISTERED PRN. WOUND VAC TO RIGHT FOOT IN PLACE WITH <50ML SANGUINOUS DRAINAGE NOTED. DRESSING TO LEFT FOOT C/D/I. BRENDA PICC LINE PATENT AND INTACT. RE-EDUCATION REGARDING NWB TO BLE AND MAINTAINING WOUND VAC CONNECTION, PT VERBALIZES UNDERSTANDING. BED IN LOW/LOCKED POSITION WITH CALL LIGHT IN REACH. SIDE RAILS UPX3 AND BED ALARM ON FOR SAFETY. WILL ENDORSE TO AM SHIFT MILA.
--- NOTE | 2017-06-08 07:20 | NUR ---
RN OPENING NOTES RECEIVED PATIENT IN BED RESTING, RESPONSIVE. NO ACUTE DISTRESS, NO SOB NOTED. DENIES PAIN OR DISCOMFORT AT THIS TIME. WOUND VAC ON RIGHT FOOT ON AND INTACT. BRENDA PICC LINE INTACT AND PATENT. BED IN LOW, LOCKED POSITION, SIDERAILS UPX2, CALL LIGHT IN REACH. WILL CONTINUE TO MONITOR ACCORDINGLY.
[2017-06-08 08:00] VITALS: BP 134/68
[2017-06-08] MEDS: FLUCONAZOLE (100 MG) 100 MG TABLET PO SCH (08:09)
[2017-06-08] MEDS: FENOFIBRATE NANOCRYS (145 MG) 145 MG TABLET PO SCH (08:09)
[2017-06-08] MEDS: ALLOPURINOL 100 MG TABLET PO SCH (08:10)
[2017-06-08] MEDS: METOPROLOL TARTRATE 50 MG TABLET PO SCH (08:11)
[2017-06-08] MEDS: LISINOPRIL (20MG) 20 MG TABLET PO SCH (08:13)
[2017-06-08] MEDS: DILTIAZEM HCL CD 180 MG PO SCH (08:14)
[2017-06-08] MEDS: INSULIN ASPART HUMALOG/NOVOLOG 100 UNIT/ML CARTRIDGE SQ SCH ×2 (08:36→13:08)
[2017-06-08] MEDS: CEFEPIME 1 GM in IV D5W 50 ML IV SCH (08:42)
--- NOTE | 2017-06-08 09:00 | NUR ---
RN NOTES DR MANSFIELD ON BEDSIDE DISCONTINUED WOUND VAC AND DID DRESSING CHANGE ON BILATERAL FOOT. WOUND VAC STORED IN DIRTY UTILITY ROOM AND CALLED [employer] FOR PACKAGE DESIGNER.
[2017-06-08 09:43] LABS: BASOPHILS % (AUTO) 0.3 % (0.0-2.0); EOSINOPHILS # (AUTO) 0.3 /CMM (0.0-0.7); EOSINOPHILS % (AUTO) 2.2 % (0.0-6.0); HEMATOCRIT 31 % (39-51); HEMOGLOBIN 9.6 g/dL (13.5-17.5); LYMPHOCYTES % (AUTO) 16.8 % (20.0-44.0); MEAN CORPUSCULAR HEMOGLOBIN 23 PG (26.0-33.0); MEAN CORPUSCULAR HGB CONC 32 g/dl (31.0-36.0); MEAN CORPUSCULAR VOLUME 72 fL (80-96); MONOCYTES % (AUTO) 8.5 % (2.0-12.0); NEUTROPHILS # (AUTO) 8.7 /CMM (1.8-8.9); NEUTROPHILS % (AUTO) 72.2 % (43.0-81.0); PLATELET COUNT (AUTO) 404 /CMM (150-450); RDW COEFFICIENT OF VARIATION 18.2 (11.5-15.0); RED BLOOD CELL COUNT(AUTO) 4.23 MIL/uL (4.5-6.0)
[2017-06-08 09:57] LABS: BILIRUBIN,TOTAL 0.3 mg/dL (0.2-1.0); CALCIUM, SERUM 9.6 mg/dL (8.5-10.1); CREATININE 1.4 mg/dL (0.6-1.3); MAGNESIUM 1.6 mg/dL (1.8-2.4); PHOSPHORUS 3.4 mg/dL (2.5-4.9); POTASSIUM 4.5 mmol/L (3.5-5.1); TOTAL PROTEIN, SERUM 7.7 g/dL (6.4-8.2)
[2017-06-08] MEDS: HYDROCODONE/APAP 10/325MG 1 EA TABLET PO PRN (12:58)
[2017-06-08 13:00] VITALS: BP 124/75
--- NOTE | 2017-06-08 13:25 | NUR ---
CRESTER NOTES DISCHARGE PATIENT IN STABLE CONDITION ACCOMPANIED BY [place] MACHINE OPERATOR VIA AMBULANCE. DISCHARGE INSTRUCTION/TEACHING DONE, PATIENT VERBALIZED UNDERSTANDING. REPORT GIVEN TO MAYRA CRESPO FROM [facility], VERIFIED THAT THEY HAVE WOUND VAC AVAILABLE. REFUSED PHOTOS. ALL BELONGINGS AND MEDICATION GIVEN BACK TO PATIENT.
== END 2017-06-08 13:27 | DRG 981 ==
LOC: ER 13:50 → MED 17:17
PROVIDERS: ADMIT Internal Medicine; ATTEND Internal Medicine
PROC: 0KBV0ZZ Excision of Right Foot Muscle, Open Approach (ICD-10-PCS; 2017-05-31)
PROC: 05H533Z Insertion of Infusion Device into Right Subclavian Vein, Percutaneous Approach (ICD-10-PCS; 2017-05-31)
PROC: 0KBW0ZZ Excision of Left Foot Muscle, Open Approach (ICD-10-PCS; principal; 2017-05-31 08:32)
DX: E11.69 Type 2 diabetes mellitus with other specified complication (principal); E43 Unspecified severe protein-calorie malnutrition; M86.9 Osteomyelitis, unspecified; N17.0 Acute kidney failure with tubular necrosis; E11.621 Type 2 diabetes mellitus with foot ulcer; E87.2 Acidosis; E11.21 Type 2 diabetes mellitus with diabetic nephropathy; E11.42 Type 2 diabetes mellitus with diabetic polyneuropathy; E11.52 Type 2 diabetes mellitus with diabetic peripheral angiopathy with gangrene; I48.91 Unspecified atrial fibrillation; E66.9 Obesity, unspecified; L97.519 Non-pressure chronic ulcer of other part of right foot with unspecified severity; L97.529 Non-pressure chronic ulcer of other part of left foot with unspecified severity; E11.22 Type 2 diabetes mellitus with diabetic chronic kidney disease; K21.9 Gastro-esophageal reflux disease without esophagitis; N18.3 Chronic kidney disease, stage 3 (moderate); E11.65 Type 2 diabetes mellitus with hyperglycemia; E78.5 Hyperlipidemia, unspecified; Z91.19 Patient's noncompliance with other medical treatment and regimen; Z85.46 Personal history of malignant neoplasm of prostate; Z79.899 Other long term (current) drug therapy; Z79.82 Long term (current) use of aspirin; Z79.4 Long term (current) use of insulin; Z79.01 Long term (current) use of anticoagulants; J44.9 Chronic obstructive pulmonary disease, unspecified; I70.0 Atherosclerosis of aorta; M10.9 Gout, unspecified; I12.9 Hypertensive chronic kidney disease with stage 1 through stage 4 chronic kidney disease, or unspecified chronic kidney disease; Z68.34 Body mass index [BMI] 34.0-34.9, adult; N20.0 Calculus of kidney; E87.70 Fluid overload, unspecified; I25.10 Atherosclerotic heart disease of native coronary artery without angina pectoris
CPT/HCPCS: 36415; 36569; 71010-TC; 80048-TC; 80053-TC; 80076-TC; 80202-TC; 81000-TC; 82962-TC; 83605-TC; 83735-TC; 84100-TC; 85025-TC; 85730-TC; 86850-TC; 87040-TC; 87070-TC; 87081-TC; 87086-TC; A6209; A6253; A6402; A6403; J0692; J1650; J1815; J1940; J2250; J2270; J2543; J3010; J3370; J3475; J3490; J7030; J7050; J7060; Z7610

== ENCOUNTER 2017-07-05 15:40 | Inpatient (IN) | payer MEDICARE, OTHER ==
[~2017-07-05] VITALS: Ht 190.5 cm; Wt 134.3 kg
[~2017-07-05 15:40] MED LIST changes: +ACAR25TA2 PO; +ALLO100T PO; -BLOO-668 IN; +CARV25TA2 PO; -CEFE1PIG3 IV; +DOXY100C2 PO; -HYDR-4076 PO; +LISI40TA4 PO; +POTA10TA21 PO
--- NOTE | 2017-07-05 15:57 | NUR ---
DR DELEON AT BEDSIDE FOR EVAL.
--- NOTE | 2017-07-05 16:13 | NUR ---
RENDERER AT BEDSIDE FOR BLOOD DRAW.
[2017-07-05 16:19] LABS: BASOPHILS % (AUTO) 0.1 % (0.0-2.0); EOSINOPHILS # (AUTO) 0.3 /CMM (0.0-0.7); EOSINOPHILS % (AUTO) 1.3 % (0.0-6.0); HEMATOCRIT 28 % (39-51); HEMOGLOBIN 8.6 g/dL (13.5-17.5); LYMPHOCYTES # (AUTO) 1.8 /CMM (0.8-4.8); LYMPHOCYTES % (AUTO) 8.6 % (20.0-44.0); MEAN CORPUSCULAR HEMOGLOBIN 21 PG (26.0-33.0); MEAN CORPUSCULAR HGB CONC 31 g/dl (31.0-36.0); MEAN CORPUSCULAR VOLUME 68 fL (80-96); MONOCYTES # (AUTO) 1.9 /CMM (0.1-1.30); NEUTROPHILS # (AUTO) 16.6 /CMM (1.8-8.9); PLATELET COUNT (AUTO) 416 /CMM (150-450); RDW COEFFICIENT OF VARIATION 16.3 (11.5-15.0); RED BLOOD CELL COUNT(AUTO) 4.03 MIL/uL (4.5-6.0); WHITE BLOOD COUNT (AUTO) 20.6 K/uL (4.3-11.0)
[2017-07-05 16:28] LABS: CALCIUM, SERUM 9.8 mg/dL (8.5-10.1); CREATININE 1.6 mg/dL (0.6-1.3); POTASSIUM 4.6 mmol/L (3.5-5.1)
[2017-07-05] MEDS ORDERED: PIPERACILLIN /TAZOBACTAM 3.375 G in IV D5W 50 ML IV ONE (16:30)
[2017-07-05] MEDS ORDERED: VANCOMYCIN 2 GM in IV D5W 250 ML IV ONE (16:30)
[2017-07-05 16:33] LABS: ALBUMIN 2.4 g/dL (3.4-5.0); BILIRUBIN,DIRECT 0.1 mg/dL (0.0-0.2); BILIRUBIN,TOTAL 0.2 mg/dL (0.2-1.0); TOTAL PROTEIN, SERUM 7.7 g/dL (6.4-8.2)
[2017-07-05] MEDS ORDERED: VANCOMYCIN 2 GM in IV D5W 500 ML IV ONE (16:38)
--- NOTE | 2017-07-05 16:39 | NUR ---
Dr. Clive Gonzalez.
[2017-07-05] MEDS ORDERED: IV NS 0.9% 1,000 ML BAG IV ONE ×2 (17:00→18:00)
[2017-07-05] MEDS ORDERED: Z GUARD REMEDY 2 OZ OINT TP PRN (18:30)
[2017-07-05] MEDS ORDERED: ZOLPIDEM TARTRATE 5 MG TABLET PO PRN (18:30)
[2017-07-05] MEDS ORDERED: ACETAMINOPHEN 325 MG TABLET PO PRN (18:30)
[2017-07-05] MEDS ORDERED: MAG HYDROX/AL HYDROX/SIMETH 30 ML UDC PO PRN (18:30)
[2017-07-05] MEDS ORDERED: MAGNESIUM HYDROXIDE 30 ML UDC PO PRN (18:30)
[2017-07-05] MEDS ORDERED: MORPHINE SULFATE INJ 2 MG/ML DISP.SYRIN IV PRN (18:30)
[2017-07-05] MEDS ORDERED: DEXTROSE 50%-WATER 50 ML DISP.SYRIN IV PRN (18:30)
[2017-07-05] MEDS ORDERED: ONDANSETRON HCL/PF 4 MG/2 ML VIAL IVP PRN (18:30)
[2017-07-05 18:42] LABS: BAND % (MANUAL) 1 % (0.0-5.0); EOSINOPHILS % (MANUAL) 1 % (0-4); LYMPHOCYTES % (MANUAL) 4 % (16-48); MONOCYTES % (MANUAL) 8 % (0-11.0); NEUTROPHILS % (MANUAL) 86 (42-76)
--- NOTE | 2017-07-05 19:21 | NUR ---
REPORT TO BASSEM WANG FOR MILA.
[2017-07-05] MEDS ORDERED: FEE PK DOSING 1 MIN EA MC ONE (19:35)
[2017-07-05] MEDS ORDERED: FENTANYL PF 100MCG/2ML AMPUL IV PRN (20:00)
[2017-07-05] MEDS ORDERED: CARVEDILOL 12.5 MG TABLET PO SCH (21:00)
[2017-07-05] MEDS ORDERED: HYDROCODONE/APAP 10/325MG 1 EA TABLET ONE (21:02)
[2017-07-05] MEDS: HYDROCODONE/APAP 10/325MG 1 EA TABLET PO PRN (21:04)
[2017-07-05] MEDS: POTASSIUM CITRATE 5 MEQ TABLET.SA PO SCH (21:12)
[2017-07-05] MEDS: ATORVASTATIN 10 MG TABLET PO SCH (21:14)
--- NOTE | 2017-07-05 21:45 | NUR ---
REPORT GIVEN TO
--- NOTE | 2017-07-05 21:46 | NUR ---
RN NOTE TRANSFER THE PT TO TELE ROOM 115 BED 2. PT AWAKE, ALERT, FOLLOW COMMANDS. PT ON ROOM AIR. IV LT HAND 18G. FADIA FOOT AMPUTATION DONE. VITALS STABLE.
[2017-07-05 22:00] VITALS: BP 120/62
[2017-07-05] MEDS: BLOOD SUGAR DIAGNOSTIC 1 EACH STRIP VI SCH (22:55)
[2017-07-05] MEDS: *INSULIN REGULAR(HUMULIN R)HUM 100 UNIT/ML VIAL SQ PRN (23:11)
[2017-07-05] MEDS ORDERED: IV D5/0.45 NACL 1,000 ML IV SCH (23:30)
--- NOTE | 2017-07-05 23:49 | NUR ---
RN ADIMITTING MS INITIAL NOTES RECEIVED 72 YR OLD MALE FROM ER ENDORSED BY FELIPE ER NURSE, C/C BILATERAL FOOT WOUND ABSCESS AND PAIN. AOX4 ON 2L NC, RONEL ANY SOB OR PAIN, VS STABLE. DR DONIS ADMITTING DR, ALL ORDERS ENTERED, ASSESSMENT COMPLETED UPON ADMITTION. SKIN INTACT, WITH BI-LAT FOOT DM WOUND PICS TAKEN, FOR SX: DEBRIDEMENT AT 0730 AM BI-LAT DM WOUND, CONSENTS SIGNED BY PT WITH CHECK LIST COMPLETE. ALL NEEDS ATTENDED WELL SAFETY MEASURES IN PLACE. PT NPO AFTER MIDNIGHT, PT AWARE. KEPT CLEAN AND DRY, CALL LIGHT WITHIN REACH.
[2017-07-06] MEDS: HYDROCODONE/APAP 10/325MG 1 EA TABLET PO PRN ×5 (01:47→20:13)
[2017-07-06 04:46] VITALS: BP 113/60
--- NOTE | 2017-07-06 06:22 | NUR ---
RN CLOSING MS NOTES ENDORSED PT IN BED, AOX4, DENIES ANY SOB OR PAIN, SCHEDULED FOR DEBRIDEMENT OF BILAT DM FOOT WOUND , CONSENT SIGNED WELL CHECK LIST. PT NPO AFT MIDNIGHT. WILL CONT TO MONITOR.
[2017-07-06] MEDS: BLOOD SUGAR DIAGNOSTIC 1 EACH STRIP VI SCH ×4 (06:45→22:00)
[2017-07-06] MEDS: *INSULIN REGULAR(HUMULIN R)HUM 100 UNIT/ML VIAL SQ PRN ×2 (06:47→23:12)
[2017-07-06] MEDS ORDERED: LIDOCAINE 0.5% HCL 50 ML VIAL ONE (06:51)
[2017-07-06] MEDS ORDERED: BUPIVACAINE 0.5 % PF 150 MG/30 ML VIAL ONE (06:51)
[2017-07-06] MEDS ORDERED: ANESTHESIA TRAY IN PYXIS 1 EA TRAY MC ONE (06:52)
[2017-07-06] MEDS ORDERED: HYDROMORPHONE INJ 2 MG/ML DISP.SYRIN ONE (07:28)
[2017-07-06 07:42] LABS: BASOPHILS # (AUTO) 0.1 /CMM (0.0-0.2); BASOPHILS % (AUTO) 0.4 % (0.0-2.0); EOSINOPHILS # (AUTO) 0.7 /CMM (0.0-0.7); EOSINOPHILS % (AUTO) 4.3 % (0.0-6.0); HEMATOCRIT 28 % (39-51); HEMOGLOBIN 8.7 g/dL (13.5-17.5); LYMPHOCYTES # (AUTO) 1.9 /CMM (0.8-4.8); LYMPHOCYTES % (AUTO) 11.9 % (20.0-44.0); MEAN CORPUSCULAR HEMOGLOBIN 22 PG (26.0-33.0); MEAN CORPUSCULAR HGB CONC 31 g/dl (31.0-36.0); MEAN CORPUSCULAR VOLUME 69 fL (80-96); MONOCYTES % (AUTO) 6.2 % (2.0-12.0); NEUTROPHILS # (AUTO) 12.4 /CMM (1.8-8.9); NEUTROPHILS % (AUTO) 77.2 % (43.0-81.0); PLATELET COUNT (AUTO) 397 /CMM (150-450); RDW COEFFICIENT OF VARIATION 18.1 (11.5-15.0); RED BLOOD CELL COUNT(AUTO) 4.01 MIL/uL (4.5-6.0)
[2017-07-06 07:53] LABS: CALCIUM, SERUM 9.2 mg/dL (8.5-10.1); CREATININE 1.4 mg/dL (0.6-1.3); MAGNESIUM 1.9 mg/dL (1.8-2.4); PHOSPHORUS 3.3 mg/dL (2.5-4.9); POTASSIUM 4.6 mmol/L (3.5-5.1)
[2017-07-06] MEDS ORDERED: CELLULOSE,OXIDIZED 1 EA PACK MC ONE (08:23)
[2017-07-06] MEDS: METOPROLOL TARTRATE 50 MG TABLET PO SCH ×2 (09:00→18:02)
[2017-07-06] MEDS: LISINOPRIL (20MG) 20 MG TABLET PO SCH (09:00)
[2017-07-06] MEDS: DILTIAZEM HCL CD 240 MG PO SCH (09:00)
[2017-07-06 09:30] VITALS: BP 109/49
[2017-07-06] MEDS: ALLOPURINOL 100 MG TABLET PO SCH (09:52)
[2017-07-06] MEDS: FENOFIBRATE NANOCRYS (145 MG) 145 MG TABLET PO SCH (09:53)
[2017-07-06] MEDS: POTASSIUM CITRATE 5 MEQ TABLET.SA PO SCH ×4 (09:57→20:13)
[2017-07-06 10:00] VITALS: BP 93/47
[2017-07-06] MEDS: INSULIN REGULAR, HUMAN 100 UNIT/ML 3 ML VIAL SQ PRN ×2 (12:10→18:05)
[2017-07-06] MEDS: VANCOMYCIN 1.25 GM in IV D5W 500 ML IV SCH (13:08)
[2017-07-06] MEDS: HYDROCODONE/APAP 5/325MG 1 EACH TABLET PO PRN (15:21)
[2017-07-06 16:00] VITALS: BP 124/67
[2017-07-06 20:00] VITALS: BP 131/53
[2017-07-06] MEDS: CEFEPIME 1 GM in IV D5W 50 ML IV SCH (20:13)
--- NOTE | 2017-07-06 20:28 | NUR ---
RN INITIAL MS NOTES RECEIVED PT IN BED, AOX4, DENIES ANY SOB, PAIN MGMT ORDERED PRN, S/P FOR DEBRIDEMENT OF BILAT DM FOOT WOUND , WITH WOUND INFX ON ABX THERAPY, NO BLOODING. TX CONT ORDERED WILL CONT TO MONITOR.
[2017-07-06] MEDS: ATORVASTATIN 10 MG TABLET PO SCH (23:08)
[2017-07-07] MEDS: HYDROCODONE/APAP 10/325MG 1 EA TABLET PO PRN ×4 (01:44→22:52)
[2017-07-07 04:00] VITALS: BP_SYST 110; BP_SYST 145; BP_DIAS 49; BP_DIAS 68
[2017-07-07] MEDS: VANCOMYCIN 1.25 GM in IV D5W 500 ML IV SCH (05:41)
[2017-07-07 07:05] LABS: CALCIUM, SERUM 9.2 mg/dL (8.5-10.1); CREATININE 1.3 mg/dL (0.6-1.3); POTASSIUM 5.6 mmol/L (3.5-5.1)
--- NOTE | 2017-07-07 07:10 | NUR ---
RN INITIAL NOTE PATIENT RECEIVED IN BED RESTING. EASILY AROUSED. ALERT AND ORIENTED, ABLE TO MAKE NEEDS KNOWN. RESPIRATIONS ARE EVEN AND UNLABORED. NO S/S OF RESPIRATORY DISTRESS OR SOB. SATING WELL ON ROOM AIR. SKIN IS WARM AND DRY TO TOUCH. IV SITE FLUSHED, PATENT. SAFETY PRECAUTIONS IMPLEMENTED, BED IN LOCKED, LOW POSITION WITH TWO SIDE RAILS UP. CALL LIGHT AND BELONGINGS WITHIN EASY REACH. WILL CONTINUE TO MONITOR.
[2017-07-07 08:00] VITALS: BP 140/67
[2017-07-07] MEDS: BLOOD SUGAR DIAGNOSTIC 1 EACH STRIP VI SCH ×4 (08:16→22:31)
[2017-07-07] MEDS: CEFEPIME 1 GM in IV D5W 50 ML IV SCH ×2 (08:16→21:54)
[2017-07-07] MEDS: POTASSIUM CITRATE 5 MEQ TABLET.SA PO SCH ×4 (08:17→21:55)
[2017-07-07] MEDS: METOPROLOL TARTRATE 50 MG TABLET PO SCH ×2 (08:18→16:36)
[2017-07-07] MEDS: DILTIAZEM HCL CD 240 MG PO SCH (08:18)
[2017-07-07] MEDS: ALLOPURINOL 100 MG TABLET PO SCH (08:19)
[2017-07-07] MEDS: FENOFIBRATE NANOCRYS (145 MG) 145 MG TABLET PO SCH (08:19)
[2017-07-07] MEDS: LISINOPRIL (20MG) 20 MG TABLET PO SCH (08:19)
[2017-07-07] MEDS: *INSULIN REGULAR(HUMULIN R)HUM 100 UNIT/ML VIAL SQ PRN ×2 (08:30→22:29)
[2017-07-07 10:55] LABS: BASOPHILS # (AUTO) 0.2 /CMM (0.0-0.2); BASOPHILS % (AUTO) 1.2 % (0.0-2.0); EOSINOPHILS # (AUTO) 0.8 /CMM (0.0-0.7); EOSINOPHILS % (AUTO) 5.6 % (0.0-6.0); HEMATOCRIT 28 % (39-51); HEMOGLOBIN 8.5 g/dL (13.5-17.5); LYMPHOCYTES # (AUTO) 2.1 /CMM (0.8-4.8); LYMPHOCYTES % (AUTO) 15.1 % (20.0-44.0); MEAN CORPUSCULAR HEMOGLOBIN 21 PG (26.0-33.0); MEAN CORPUSCULAR HGB CONC 30 g/dl (31.0-36.0); MEAN CORPUSCULAR VOLUME 70 fL (80-96); MONOCYTES % (AUTO) 6.9 % (2.0-12.0); NEUTROPHILS # (AUTO) 10.1 /CMM (1.8-8.9); NEUTROPHILS % (AUTO) 71.2 % (43.0-81.0); PLATELET COUNT (AUTO) 446 /CMM (150-450); RDW COEFFICIENT OF VARIATION 17.9 (11.5-15.0); RED BLOOD CELL COUNT(AUTO) 4.05 MIL/uL (4.5-6.0); WHITE BLOOD COUNT (AUTO) 14.2 K/uL (4.3-11.0)
[2017-07-07 12:00] VITALS: BP 110/49
[2017-07-07] MEDS: INSULIN REGULAR, HUMAN 100 UNIT/ML 10 ML VIAL SQ SCH ×2 (13:42→16:46)
[2017-07-07 16:00] VITALS: BP 110/49
--- NOTE | 2017-07-07 18:49 | NUR ---
RN CLOSING NOTE CARRIED OUT ALL MD ORDERS. PATIENTS NEEDS ANTICIPATED. PATIENT KEPT CLEAN AND DRY. SAFETY PRECAUTIONS IN PLACE AT ALL TIMES. WILL GIVE REPORT TO PM RN FOR MILA.
[2017-07-07 20:00] VITALS: BP 95/40
[2017-07-07 21:00] VITALS: BP 131/68
[2017-07-07] MEDS: ATORVASTATIN 10 MG TABLET PO SCH (21:56)
[2017-07-07] MEDS: INSULIN DETEMIR 100 UNIT/ML CARTRIDGE SQ SCH (22:00)
[2017-07-08] MEDS: HYDROCODONE/APAP 10/325MG 1 EA TABLET PO PRN ×5 (03:25→22:13)
[2017-07-08 04:00] VITALS: BP_SYST 123; BP_SYST 128; BP_DIAS 62
[2017-07-08 06:56] LABS: CALCIUM, SERUM 9.5 mg/dL (8.5-10.1); CREATININE 1.3 mg/dL (0.6-1.3); POTASSIUM 5.4 mmol/L (3.5-5.1)
[2017-07-08] MEDS: BLOOD SUGAR DIAGNOSTIC 1 EACH STRIP VI SCH ×4 (07:00→22:17)
[2017-07-08] MEDS: INSULIN REGULAR, HUMAN 100 UNIT/ML 3 ML VIAL SQ PRN (07:02)
--- NOTE | 2017-07-08 07:45 | NUR ---
RN OPENING NOTES RECEIVED PT. IN BED AWAKE, A&OX4. BREATHING UNLABORED, AND EVENLY ON ROOM AIR. NO S/S OF ACUTE DISTRESS. IV ACCESS ON RIGHT FOREARM IS INTACT. URINAL AT BEDSIDE HAS 800 CC OF CLEAR AND YELLOW URINE. PT. HAS TAYLER BANDAGES WRAPPED ON BILATERAL LOWER EXTREMITIES, NO SIGNS OF WOUND DRAINAGE. PT. HAS WHEELCHAIR AT BEDSIDE. BED IS IN LOWEST, AND LOCKED POSITION. 2 SIDE RAILS UP, AND INSTRUCTED PT. TO USE CALL LIGHT FOR ASSISTANCE. ALL NEEDS MET. WILL CONTINUE TO ASSESS AND MONITOR.
[2017-07-08 08:24] LABS: BASOPHILS % (AUTO) 0.4 % (0.0-2.0); EOSINOPHILS # (AUTO) 0.8 /CMM (0.0-0.7); HEMATOCRIT 28 % (39-51); HEMOGLOBIN 8.3 g/dL (13.5-17.5); LYMPHOCYTES # (AUTO) 1.9 /CMM (0.8-4.8); LYMPHOCYTES % (AUTO) 14.9 % (20.0-44.0); MEAN CORPUSCULAR HEMOGLOBIN 21 PG (26.0-33.0); MEAN CORPUSCULAR HGB CONC 30 g/dl (31.0-36.0); MEAN CORPUSCULAR VOLUME 70 fL (80-96); MONOCYTES # (AUTO) 0.7 /CMM (0.1-1.30); MONOCYTES % (AUTO) 5.2 % (2.0-12.0); NEUTROPHILS # (AUTO) 9.3 /CMM (1.8-8.9); NEUTROPHILS % (AUTO) 73.5 % (43.0-81.0); PLATELET COUNT (AUTO) 418 /CMM (150-450); RDW COEFFICIENT OF VARIATION 18.2 (11.5-15.0); RED BLOOD CELL COUNT(AUTO) 3.93 MIL/uL (4.5-6.0); WHITE BLOOD COUNT (AUTO) 12.6 K/uL (4.3-11.0)
[2017-07-08] MEDS: DILTIAZEM HCL CD 240 MG PO SCH (08:40)
[2017-07-08] MEDS: FENOFIBRATE NANOCRYS (145 MG) 145 MG TABLET PO SCH (08:40)
[2017-07-08] MEDS: LISINOPRIL (20MG) 20 MG TABLET PO SCH (08:40)
[2017-07-08] MEDS: POTASSIUM CITRATE 5 MEQ TABLET.SA PO SCH ×4 (08:41→21:00)
[2017-07-08] MEDS: ALLOPURINOL 100 MG TABLET PO SCH (08:41)
[2017-07-08] MEDS: METOPROLOL TARTRATE 50 MG TABLET PO SCH ×2 (08:41→18:08)
[2017-07-08 08:50] VITALS: BP 135/60
[2017-07-08] MEDS: CEFEPIME 1 GM in IV D5W 50 ML IV SCH ×2 (08:50→21:37)
[2017-07-08] MEDS: INSULIN REGULAR, HUMAN 100 UNIT/ML 10 ML VIAL SQ SCH ×3 (09:03→18:12)
--- NOTE | 2017-07-08 09:16 | NUR ---
RN NOTES PT.'S VACO TROUGH WAS LOW 11, NOTIFIED PHARMACY AND OKAY TO ADMINISTER VANCOMYCIN IV.
[2017-07-08] MEDS: VANCOMYCIN 1 GM in IV D5W 250 ML IV SCH (09:49)
--- NOTE | 2017-07-08 10:19 | NUR ---
RN NOTES REPORT GIVEN BY TIFFANIE FROM [facility] CALLED TO INFORM PT. IS MRSA POSITIVE OF RIGHT FOOT WOUND. PT.WILL BE PLACED ON CONTACT ISOLATION.
--- NOTE | 2017-07-08 18:13 | NUR ---
RN NOTES PT.'S BLOOD SUGAR IS 61 MG /DL WILL HOLD 55 UNITS OF REGULAR INSULIN.
--- NOTE | 2017-07-08 18:17 | NUR ---
RN NOTES PT. CONSUMED 1 BOX OF ORANGE JUICE.
--- NOTE | 2017-07-08 18:41 | NUR ---
RN NOTES PT.'S BLOOD SUGAR IS 156 MG/DL AFTER LOW BLOOD SUGAR.
--- NOTE | 2017-07-08 19:35 | NUR ---
RN CLOSING NOTES SIGN IS OUTSIDE DOOR PT. IS ON CONTACT ISOLATION FOR TESTING POSITIVE FOR MRSA OF THE RIGHT FOOT WOUND. MOVED PT. TO A NEW ROOM 105. PT. IS IN BED AWAKE, A&OX4. BREATHING UNLABORED, AND EVENLY ON ROOM AIR. NO S/S OF ACUTE DISTRESS. IV ACCESS ON RIGHT FOREARM IS INTACT. PT. HAS TYALER BANDAGES WRAPPED ON BILATERAL LOWER EXTREMITIES, WITHOUT SIGNS OF WOUND DRAINAGE. PT. HAS WHEELCHAIR AT BEDSIDE. BED IS IN LOWEST, AND LOCKED POSITION. 2 SIDE RAILS UP, AND INSTRUCTED PT. TO USE CALL LIGHT FOR ASSISTANCE. ALL NEEDS MET. WILL ENDORSE REPORT TO NURSE.
[2017-07-08 20:00] VITALS: BP 109/34
[2017-07-08] MEDS: ATORVASTATIN 10 MG TABLET PO SCH (22:13)
[2017-07-08] MEDS: INSULIN DETEMIR 100 UNIT/ML CARTRIDGE SQ SCH (22:19)
[2017-07-08] MEDS: *INSULIN REGULAR(HUMULIN R)HUM 100 UNIT/ML VIAL SQ PRN (22:21)
[2017-07-09] MEDS: HYDROCODONE/APAP 10/325MG 1 EA TABLET PO PRN ×4 (03:02→21:42)
[2017-07-09] MEDS: VANCOMYCIN 1 GM in IV D5W 250 ML IV SCH ×2 (03:11→21:59)
[2017-07-09 04:00] VITALS: BP_SYST 138; BP_SYST 139; BP_DIAS 71; BP_DIAS 78
[2017-07-09] MEDS ORDERED: ANESTHESIA TRAY IN PYXIS 1 EA TRAY MC ONE (06:21)
--- NOTE | 2017-07-09 06:24 | NUR ---
MS-1/WAFER SUBSTRATE TESTER WOUND VAC TO BE DELIVERED TO OR BY [facility].
[2017-07-09 06:31] LABS: CALCIUM, SERUM 9.4 mg/dL (8.5-10.1); CREATININE 1.2 mg/dL (0.6-1.3); POTASSIUM 4.5 mmol/L (3.5-5.1)
[2017-07-09] MEDS: BLOOD SUGAR DIAGNOSTIC 1 EACH STRIP VI SCH ×4 (06:31→21:51)
[2017-07-09] MEDS ORDERED: FENTANYL PF 100MCG/2ML AMPUL ONE (06:51)
[2017-07-09] MEDS ORDERED: MIDAZOLAM HCL 2 MG/2ML VIAL ONE (06:51)
[2017-07-09] MEDS ORDERED: BUPIVACAINE 0.5 % PF 150 MG/30 ML VIAL ONE (06:52)
[2017-07-09] MEDS ORDERED: LIDOCAINE 0.5% HCL 50 ML VIAL ONE (06:52)
[2017-07-09 08:00] VITALS: BP_SYST 129; BP_SYST 136; BP_DIAS 53; BP_DIAS 65
[2017-07-09] MEDS: DILTIAZEM HCL CD 240 MG PO SCH (08:57)
[2017-07-09] MEDS: FENOFIBRATE NANOCRYS (145 MG) 145 MG TABLET PO SCH (08:57)
[2017-07-09] MEDS: ALLOPURINOL 100 MG TABLET PO SCH (08:57)
[2017-07-09] MEDS: METOPROLOL TARTRATE 50 MG TABLET PO SCH ×2 (08:59→16:37)
[2017-07-09] MEDS: LISINOPRIL (20MG) 20 MG TABLET PO SCH (08:59)
--- NOTE | 2017-07-09 09:00 | NUR ---
RN NOTES PT RETURNED FROM SURG IN STABLE CONDITION. A&0X3, ON 2L NC SATING WELL NO DISTRESS NOTED. DEBRIDEMENT DONE OF BOTH FEET. R FOOT CONNECTED TO WOUND VAC. LFA 22G IV SITE INTACT. PT IN PAIN, NORCO ADMINISTERED. PT RESTARTED ON CONSISTENT CARB DIET. BED LOCKED AND IN LOWEST POSITION, CALL LIGHT WITHIN REACH, SIDE RAILS UPX3, WILL CONT TO SAMI.
[2017-07-09] MEDS: CEFEPIME 1 GM in IV D5W 50 ML IV SCH ×2 (09:02→21:35)
[2017-07-09] MEDS: POTASSIUM CITRATE 5 MEQ TABLET.SA PO SCH ×4 (09:02→21:43)
[2017-07-09] MEDS: INSULIN REGULAR, HUMAN 100 UNIT/ML 10 ML VIAL SQ SCH ×3 (09:04→17:00)
[2017-07-09 16:00] VITALS: BP 136/65
--- NOTE | 2017-07-09 18:26 | NUR ---
RN NOTES PT REMAINED IN STABLE CONDITION THROUGHOUT THE SHIFT, NO SIGNIFICANT CHANGES. WOUND VAC STILL IN PLACE, MINIMAL DRAINAGE. PT HAD EPISODE OF LOW BLOOD SUGAR, ORANGE JUICE PROVIDED, BLOOD SUGAR RECHECKED NOW 84. NO COMPLAINTS OF PAIN AT THIS TIME. ALL NEEDS MET. WILL ENDORSE TO ONCOMING SHIFT.
[2017-07-09 20:00] VITALS: BP 118/57
--- NOTE | 2017-07-09 20:00 | NUR ---
RN INITIAL NOTES PT RESTING IN BED WITH NO SIGN OF DISTRESS. WOUND VAC IN PLACE, MINIMAL DRAINAGE. NO COMPLAINTS OF PAIN AT THIS TIME. BED IN LOW LOCKED POSITION, CALL LIGHT WITHIN REACH. RN WILL CONTINUE TO MONITOR PT.
[2017-07-09] MEDS: ATORVASTATIN 10 MG TABLET PO SCH (21:47)
[2017-07-09] MEDS: INSULIN DETEMIR 100 UNIT/ML CARTRIDGE SQ SCH (21:50)
[2017-07-09] MEDS: *INSULIN REGULAR(HUMULIN R)HUM 100 UNIT/ML VIAL SQ PRN (21:57)
[2017-07-10] MEDS: HYDROCODONE/APAP 10/325MG 1 EA TABLET PO PRN ×6 (01:57→23:12)
[2017-07-10 04:00] VITALS: BP 138/71
--- NOTE | 2017-07-10 07:07 | NUR ---
RN CLOSING NOTES PT RESTING IN BED WITH NO SIGN OF DISTRESS. WOUND VAC IN PLACE, MINIMAL DRAINAGE. PT C/O OF PAIN 8/10 AND PAIN MEDS GIVEN. BED IN LOW LOCKED POSITION, CALL LIGHT WITHIN REACH. RN WILL ENDORSE TO AM RN.
[2017-07-10 07:14] LABS: CALCIUM, SERUM 9.7 mg/dL (8.5-10.1); CREATININE 1.2 mg/dL (0.6-1.3); POTASSIUM 5.1 mmol/L (3.5-5.1)
[2017-07-10 08:00] VITALS: BP 129/76
[2017-07-10] MEDS: BLOOD SUGAR DIAGNOSTIC 1 EACH STRIP VI SCH ×4 (08:05→22:40)
[2017-07-10] MEDS: INSULIN REGULAR, HUMAN 100 UNIT/ML 10 ML VIAL SQ SCH ×3 (08:23→17:46)
[2017-07-10] MEDS: CEFEPIME 1 GM in IV D5W 50 ML IV SCH ×2 (09:18→21:30)
[2017-07-10] MEDS: DILTIAZEM HCL CD 240 MG PO SCH (09:19)
[2017-07-10] MEDS: FENOFIBRATE NANOCRYS (145 MG) 145 MG TABLET PO SCH (09:19)
[2017-07-10] MEDS: ALLOPURINOL 100 MG TABLET PO SCH (09:19)
[2017-07-10] MEDS: POTASSIUM CITRATE 5 MEQ TABLET.SA PO SCH ×4 (09:20→21:00)
[2017-07-10] MEDS: METOPROLOL TARTRATE 50 MG TABLET PO SCH ×2 (09:20→18:00)
--- NOTE | 2017-07-10 12:31 | NUR ---
no routine or coverage insulin given at this time.pt. asymptomatic.bgl 89.
[2017-07-10 16:00] VITALS: BP 151/67
[2017-07-10] MEDS: VANCOMYCIN 1 GM in IV D5W 250 ML IV SCH (16:03)
[2017-07-10] MEDS: INSULIN REGULAR, HUMAN 100 UNIT/ML 3 ML VIAL SQ PRN (17:48)
[2017-07-10] MEDS: LISINOPRIL (20MG) 20 MG TABLET PO SCH (17:58)
--- NOTE | 2017-07-10 18:30 | NUR ---
dr. moody,dr. olsen in to see pt.orders given.medicated x 3 with norco 10 mg.
--- NOTE | 2017-07-10 19:00 | NUR ---
Received report. Patient is [place] and requires redirection. Noted out of bed and ambulating with wound vac seal broken. Patient teaching and reinforcement on compliance with wound care treatment. Offered patient call light and promised to do frequent visits to take care of needs. patient verbalized understanding of instructions.
[2017-07-10 20:00] VITALS: BP 129/57
--- NOTE | 2017-07-10 22:00 | NUR ---
Patient is noted to ambulate and not call for assistance. Nursing re-enforcement on compliance for wound care. patient refused to comply. Noted wound vac seal integrity compromised. Offered urinal and placed call light with in reach.
[2017-07-10] MEDS: INSULIN DETEMIR 100 UNIT/ML CARTRIDGE SQ SCH (22:47)
[2017-07-10] MEDS: ATORVASTATIN 10 MG TABLET PO SCH (22:50)
[2017-07-10] MEDS: HYDROCODONE/APAP 5/325MG 1 EACH TABLET PO PRN (22:56)
[2017-07-11] MEDS: HYDROCODONE/APAP 10/325MG 1 EA TABLET PO PRN ×5 (03:35→21:34)
[2017-07-11 04:00] VITALS: BP 129/57
[2017-07-11 07:03] LABS: CALCIUM, SERUM 9.4 mg/dL (8.5-10.1); CREATININE 1.3 mg/dL (0.6-1.3); POTASSIUM 4.8 mmol/L (3.5-5.1)
[2017-07-11 07:24] LABS: BASOPHILS % (AUTO) 0.3 % (0.0-2.0); EOSINOPHILS # (AUTO) 0.6 /CMM (0.0-0.7); EOSINOPHILS % (AUTO) 4.4 % (0.0-6.0); HEMATOCRIT 30 % (39-51); HEMOGLOBIN 8.9 g/dL (13.5-17.5); LYMPHOCYTES # (AUTO) 2.4 /CMM (0.8-4.8); LYMPHOCYTES % (AUTO) 19.1 % (20.0-44.0); MEAN CORPUSCULAR HEMOGLOBIN 21 PG (26.0-33.0); MEAN CORPUSCULAR HGB CONC 30 g/dl (31.0-36.0); MEAN CORPUSCULAR VOLUME 70 fL (80-96); MONOCYTES # (AUTO) 0.9 /CMM (0.1-1.30); MONOCYTES % (AUTO) 7.2 % (2.0-12.0); NEUTROPHILS # (AUTO) 8.7 /CMM (1.8-8.9); PLATELET COUNT (AUTO) 488 /CMM (150-450); RDW COEFFICIENT OF VARIATION 18.2 (11.5-15.0); RED BLOOD CELL COUNT(AUTO) 4.24 MIL/uL (4.5-6.0); WHITE BLOOD COUNT (AUTO) 12.5 K/uL (4.3-11.0)
[2017-07-11] MEDS: BLOOD SUGAR DIAGNOSTIC 1 EACH STRIP VI SCH ×4 (07:30→21:22)
[2017-07-11] MEDS ORDERED: SILVER NITRATE APPLICATOR 1 EA BOX TP ONE (08:00)
[2017-07-11 08:35] LABS: BAND % (MANUAL) 1 % (0.0-5.0); EOSINOPHILS % (MANUAL) 3 % (0-4); LYMPHOCYTES % (MANUAL) 21 % (16-48); MONOCYTES % (MANUAL) 8 % (0-11.0); NEUTROPHILS % (MANUAL) 67 (42-76)
[2017-07-11] MEDS ORDERED: HYDROGEL DRESSING 90 GM TUBE TP PRN (09:00)
[2017-07-11] MEDS: FENOFIBRATE NANOCRYS (145 MG) 145 MG TABLET PO SCH (09:19)
[2017-07-11] MEDS: CEFEPIME 1 GM in IV D5W 50 ML IV SCH ×2 (09:19→20:35)
[2017-07-11] MEDS: VANCOMYCIN 1 GM in IV D5W 250 ML IV SCH (09:19)
[2017-07-11] MEDS: DILTIAZEM HCL CD 240 MG PO SCH (09:21)
[2017-07-11] MEDS: METOPROLOL TARTRATE 50 MG TABLET PO SCH ×2 (09:21→17:00)
[2017-07-11] MEDS: LISINOPRIL (20MG) 20 MG TABLET PO SCH (09:21)
[2017-07-11] MEDS: POTASSIUM CITRATE 5 MEQ TABLET.SA PO SCH ×4 (09:47→20:35)
[2017-07-11] MEDS: ALLOPURINOL 100 MG TABLET PO SCH (09:47)
[2017-07-11] MEDS: INSULIN REGULAR, HUMAN 100 UNIT/ML 10 ML VIAL SQ SCH ×3 (09:52→17:00)
[2017-07-11 19:00] VITALS: BP 117/47
--- NOTE | 2017-07-11 19:21 | NUR ---
Handoff to night nurse.
--- NOTE | 2017-07-11 20:00 | NUR ---
RN NOTES RECEIVED PT. AWAKE ON BED, A/OX3, [place], MIDLINE IN PLACE ON THE RIGHT UPPER ARM, WOUND VAC CONNECTED ON THE RIGHT FOOT, DENIES PAIN, NO SOB, DRESSING DRY AND INTACT, CALL LIGHT WITHIN REACH, SIDERAILS UPX2 CONTINUE TO MONITOR
[2017-07-11] MEDS: ATORVASTATIN 10 MG TABLET PO SCH (21:22)
[2017-07-11] MEDS: *INSULIN REGULAR(HUMULIN R)HUM 100 UNIT/ML VIAL SQ PRN (21:28)
[2017-07-11] MEDS: INSULIN DETEMIR 100 UNIT/ML CARTRIDGE SQ SCH (21:30)
--- NOTE | 2017-07-11 21:39 | NUR ---
RN NOTES COMPLAINED OF RIGHT FOOT PAIN- NORCO 10/325 MG PO GIVEN ORDERED, V/S STABLE
[2017-07-11 21:59] VITALS: BP 132/59
[2017-07-12] MEDS: HYDROCODONE/APAP 10/325MG 1 EA TABLET PO PRN ×4 (01:32→13:49)
--- NOTE | 2017-07-12 01:35 | NUR ---
RN NOTES COMPLAINED OF RIGHT FOOT PAIN-NORCO 10/325 MG PO GIVEN ORDERED, V/S STABLE
[2017-07-12] MEDS: VANCOMYCIN 1 GM in IV D5W 250 ML IV SCH (03:20)
--- NOTE | 2017-07-12 03:30 | NUR ---
RN NOTES MIDLINE IS NOT WORKING, NEW IV LINE INSERTED ON THE LEFT FOREARM GAUGE 22
[2017-07-12 04:00] VITALS: BP 101/50
--- NOTE | 2017-07-12 05:49 | NUR ---
RN NOTES COMPLAINED OF RIGHT FOOT PAIN- NORCO 10/325MG PO GIVEN ORDERED, V/S STABLE
--- NOTE | 2017-07-12 06:26 | NUR ---
RN NOTES AWAKE, WOUND VAC IN PLACE, DRESSING DRY AND INTACT, DENIES PAIN, NO SOB, CALL LIGHT WITHIN REACH, SIDERAILS UPX2 PT. NEEDS ATTENDED
[2017-07-12 07:29] LABS: CALCIUM, SERUM 9.6 mg/dL (8.5-10.1); CREATININE 1.3 mg/dL (0.6-1.3); POTASSIUM 4.6 mmol/L (3.5-5.1)
--- NOTE | 2017-07-12 07:30 | NUR ---
MS RN NOTES RECEIVED PT. AWAKE ON BED, A/OX3, [place], MIDLINE IN PLACE ON THE RIGHT UPPER ARM, WOUND VAC CONNECTED ON THE RIGHT FOOT WITH APPROX 10 ML OUTPUT, DENIES PAIN, NO SOB, DRESSING DRY AND INTACT, CALL LIGHT WITHIN REACH, SIDERAILS UPX2 CONTINUE TO MONITOR
[2017-07-12 07:33] LABS: BASOPHILS # (AUTO) 0.1 /CMM (0.0-0.2); BASOPHILS % (AUTO) 0.5 % (0.0-2.0); EOSINOPHILS # (AUTO) 0.4 /CMM (0.0-0.7); EOSINOPHILS % (AUTO) 3.9 % (0.0-6.0); HEMATOCRIT 30 % (39-51); HEMOGLOBIN 9.1 g/dL (13.5-17.5); LYMPHOCYTES # (AUTO) 2.6 /CMM (0.8-4.8); LYMPHOCYTES % (AUTO) 23.3 % (20.0-44.0); MEAN CORPUSCULAR HEMOGLOBIN 21 PG (26.0-33.0); MEAN CORPUSCULAR HGB CONC 30 g/dl (31.0-36.0); MEAN CORPUSCULAR VOLUME 70 fL (80-96); MONOCYTES # (AUTO) 0.9 /CMM (0.1-1.30); MONOCYTES % (AUTO) 7.7 % (2.0-12.0); NEUTROPHILS # (AUTO) 7.2 /CMM (1.8-8.9); NEUTROPHILS % (AUTO) 64.6 % (43.0-81.0); PLATELET COUNT (AUTO) 421 /CMM (150-450); RDW COEFFICIENT OF VARIATION 18.9 (11.5-15.0); WHITE BLOOD COUNT (AUTO) 11.2 K/uL (4.3-11.0)
[2017-07-12 08:00] VITALS: BP 143/63
[2017-07-12] MEDS: BLOOD SUGAR DIAGNOSTIC 1 EACH STRIP VI SCH ×2 (08:06→12:00)
--- NOTE | 2017-07-12 08:21 | NUR ---
RN NOTES ACCUCHECK DONE. BS 160 MG/DL. ADMINISTERED SCHEDULED INSULIN ONLY. PATIENT REFUSED THE SLIDING SCALE.
[2017-07-12] MEDS: INSULIN REGULAR, HUMAN 100 UNIT/ML 10 ML VIAL SQ SCH ×2 (08:52→13:00)
[2017-07-12] MEDS: CEFEPIME 1 GM in IV D5W 50 ML IV SCH (08:53)
--- NOTE | 2017-07-12 08:53 | NUR ---
RN NOTES CEFEPIME IV STARTED.
[2017-07-12] MEDS: POTASSIUM CITRATE 5 MEQ TABLET.SA PO SCH ×2 (08:54→13:00)
[2017-07-12] MEDS: FENOFIBRATE NANOCRYS (145 MG) 145 MG TABLET PO SCH (08:54)
[2017-07-12] MEDS: DILTIAZEM HCL CD 240 MG PO SCH (08:55)
[2017-07-12] MEDS: METOPROLOL TARTRATE 50 MG TABLET PO SCH (08:56)
[2017-07-12] MEDS: LISINOPRIL (20MG) 20 MG TABLET PO SCH (08:56)
[2017-07-12] MEDS: ALLOPURINOL 100 MG TABLET PO SCH (08:58)
--- NOTE | 2017-07-12 09:30 | NUR ---
RN NOTES ADMINISTERED DUE MEDS
[2017-07-12 12:00] VITALS: BP 138/68
--- NOTE | 2017-07-12 12:21 | NUR ---
RN NOTES PATIENT REFUSED BS CHECK.
--- NOTE | 2017-07-12 14:00 | NUR ---
RN NOTES PT DISCHARGED TO [facility]. PROVIDED DC INSTRUCTIONS, MED RECON LIST AND HEALTH TEACHINGS. PATIENT WITH NEW DESTINEY MIDLINE, FLUSHES WELL, SITE CLEAR. TO FOLLOW UP WITH FACILITY MD AND WOUND CLINIC AND WILL MAKE OWN APPOINTMENT. ALL BELONGINGS CHECKED AND RETURNED. ALL PAPERWORKS SIGNED. ALL IV ACCESS REMOVED. NO BLEEDING. DRESSING IN PLACE. PRESCRIBED WOUND TREATMENT DONE, WOUND VAC REMOVED WITH 25 ML OUTPUT. ALL PAPERWORKS SIGNED. PICKED UP BY [facility] AND WILL TRANSPORT PATIENT TO FACILITY. REPORT GIVEN TO WAYNE NUNEZ FACILITY STAFF EARLIER. Addendum: 07/12/17 at 1544 by RUBI SANFORD RN ADDENDUM: PHOTOS OF SKIN ISSUES TAKEN AND PLACED IN CHART.
== END 2017-07-12 14:02 | DRG 500 ==
LOC: ER 15:42 → TRANSITION 18:40 → TELE1 20:59 → MEDSG1 22:58
PROVIDERS: ADMIT Internal Medicine; ATTEND Internal Medicine
PROC: 0KBV0ZZ Excision of Right Foot Muscle, Open Approach (ICD-10-PCS; principal; 2017-07-06 07:30)
PROC: 05H533Z Insertion of Infusion Device into Right Subclavian Vein, Percutaneous Approach (ICD-10-PCS; 2017-07-09)
PROC: B546ZZA Ultrasonography of Right Subclavian Vein, Guidance (ICD-10-PCS; 2017-07-09)
PROC: 0HBMXZZ Excision of Right Foot Skin, External Approach (ICD-10-PCS; 2017-07-10)
PROC: 2W1SX6Z Compression of Right Foot using Pressure Dressing (ICD-10-PCS; 2017-07-10)
DX: T87.43 Infection of amputation stump, right lower extremity (principal); E43 Unspecified severe protein-calorie malnutrition; N17.0 Acute kidney failure with tubular necrosis; E87.2 Acidosis; E11.42 Type 2 diabetes mellitus with diabetic polyneuropathy; E11.21 Type 2 diabetes mellitus with diabetic nephropathy; E11.51 Type 2 diabetes mellitus with diabetic peripheral angiopathy without gangrene; I48.0 Paroxysmal atrial fibrillation; L03.115 Cellulitis of right lower limb; M86.9 Osteomyelitis, unspecified; L02.611 Cutaneous abscess of right foot; E11.69 Type 2 diabetes mellitus with other specified complication; E11.621 Type 2 diabetes mellitus with foot ulcer; I12.9 Hypertensive chronic kidney disease with stage 1 through stage 4 chronic kidney disease, or unspecified chronic kidney disease; E11.65 Type 2 diabetes mellitus with hyperglycemia; E11.22 Type 2 diabetes mellitus with diabetic chronic kidney disease; E78.5 Hyperlipidemia, unspecified; I25.10 Atherosclerotic heart disease of native coronary artery without angina pectoris; L97.519 Non-pressure chronic ulcer of other part of right foot with unspecified severity; N18.3 Chronic kidney disease, stage 3 (moderate); Z91.19 Patient's noncompliance with other medical treatment and regimen; Z85.46 Personal history of malignant neoplasm of prostate; Z79.82 Long term (current) use of aspirin; Z79.899 Other long term (current) drug therapy; Z79.01 Long term (current) use of anticoagulants; Z68.37 Body mass index [BMI] 37.0-37.9, adult; Z79.4 Long term (current) use of insulin; J44.9 Chronic obstructive pulmonary disease, unspecified; E66.9 Obesity, unspecified; M10.9 Gout, unspecified; N20.0 Calculus of kidney; Y83.5 Amputation of limb(s) as the cause of abnormal reaction of the patient, or of later complication, without mention of misadventure at the time of the procedure; Y92.129 Unspecified place in nursing home as the place of occurrence of the external cause; K21.9 Gastro-esophageal reflux disease without esophagitis
CPT/HCPCS: 36415; 36569; 73630-TC; 80048-TC; 80076-TC; 80202-TC; 82962-TC; 83605-TC; 83735-TC; 84100-TC; 85025-TC; 86850-TC; 87040-TC; 87070-TC; 87081-TC; A4217; A4606; A6209; A6248; A6253; A6402; A6403; J0692; J1170; J1815; J2250; J2270; J2405; J2543; J2704; J3010; J3370; J3490; J7030; J7060; Z7610

== ENCOUNTER 2017-10-11 11:40 | Outpatient (CLI) | payer MEDICARE, OTHER ==
[~2017-10-11 11:40] MED LIST changes: +METO50TA16 PO; -METO50TA3 PO
== END 2017-10-11 23:59 | disposition home health service (06) ==
LOC: WOU 11:40
PROVIDERS: ATTEND Podiatrist Foot & Ankle Surgery
DX: E11.621 Type 2 diabetes mellitus with foot ulcer (principal); L97.423 Non-pressure chronic ulcer of left heel and midfoot with necrosis of muscle; L97.414 Non-pressure chronic ulcer of right heel and midfoot with necrosis of bone; E11.69 Type 2 diabetes mellitus with other specified complication; M86.671 Other chronic osteomyelitis, right ankle and foot; Z91.19 Patient's noncompliance with other medical treatment and regimen; Z87.891 Personal history of nicotine dependence; E11.40 Type 2 diabetes mellitus with diabetic neuropathy, unspecified
CPT/HCPCS: 11042; 11044; 11045; 11047; 82962-TC; A6253; A6402